=== PATIENT | female | born 1970 | race Caucasian/White ===

== ENCOUNTER 2019-04-19 21:47 | Emergency (ER) | payer MEDICAID ==
--- NOTE | 2019-04-19 22:12 | ER Document Report ---
ED Medical Screen (RME) - General Chief Complaint: Leg Pain Stated Complaint: ARTERY LEFT LEG PAIN Time Seen by Provider: 04/19/19 22:06 Primary Care Provider: LEEANN BARAHONA MD [Primary Care Provider] - Follow up as needed Mode of Arrival: Wheelchair Information source: Patient Notes: This 49-year-old female presents emergency department with complaints of left le g pain. Reports she has a history of PVD with 3 stent placements. Patient reports left upper thigh with bulging and tenderness that started today. Denies trauma. Reports her left leg is swelling and she has pain in her left foot. Denies fever vomiting reports some diarrhea Patient just moved back to [place] from [place]. I have greeted and performed a rapid initial assessment of this patient. A comprehensive ED assessment and evaluation of the patient, analysis of test results and completion of the medical decision making process will be conducted by additional ED providers. Dictation of this chart was performed using voice recognition software; therefore, there may be some unintended grammatical errors. TRAVEL OUTSIDE OF THE [place] IN LAST 30 DAYS: No - Related Data Allergies/Adverse Reactions: aspirin [Aspirin] Allergy (Intermediate, Verified 03/21/12 20:32) Feels hot & itchy meperidine HCl [From Demerol] Allergy (Intermediate, Verified 03/21/12 20:32) Get very hot tramadol [Tramadol] Allergy (Intermediate, Verified 03/21/12 20:32) Feel hot & itchy Past Medical History - Past Medical History Cardiac Medical History: Reports: Hx Coronary Artery Disease, Hx Heart Attack, Hx Hypertension Pulmonary Medical History: Neurological Medical History: Reports: Hx Migraine Endocrine Medical History: Reports: Hx Diabetes Mellitus Type 2 GI Medical History: Reports: Hx Gastroesophageal Reflux Disease Musculoskeltal Medical History: Reports Hx Arthritis - OSTEO, Reports Hx Musculoskeletal Trauma Psychiatric Medical History: Reports: Hx Anxiety, Hx Depression Traumatic Medical History: Reports: Hx Fractures Infectious Medical History: Past Surgical History: Reports: Hx Abdominal Surgery - LAP, Hx Section - X3, Hx Cholecystectomy, Hx Gynecologic Surgery - 1 , Hx Hysterectomy, Hx Oral Surgery, Hx Orthopedic Surgery - R FOOT - Immunizations Immunizations up to date: Yes Hx Diphtheria, Pertussis, Tetanus Vaccination: Yes Physical Exam - Vital signs Vitals: Temp Pulse Resp BP Pulse Ox 99.9 F 113 H 24 H 162/90 H 98 04/19/19 21:56 04/19/19 21:56 04/19/19 21:56 04/19/19 21:56 04/19/19 21:56 Course - Vital Signs Vital signs: Temp Pulse Resp BP Pulse Ox 99.9 F 113 H 24 H 162/90 H 98 04/19/19 21:56 04/19/19 21:56 04/19/19 21:56 04/19/19 21:56 04/19/19 21:56 Doctor's Discharge - Discharge Referrals: LEEANN BARAHONA MD [Primary Care Provider] - Follow up as needed
--- NOTE | 2019-04-20 01:20 | ER Document Report ---
ED Extremity Problem, Lower - General Chief Complaint: Leg Pain Stated Complaint: ARTERY LEFT LEG PAIN Time Seen by Provider: 04/20/19 01:20 Primary Care Provider: LEEANN BARAHONA MD [Primary Care Provider] - Follow up as needed Mode of Arrival: Wheelchair Information source: Patient Notes: HISTORY OF PRESENT ILLNESS: Patient is a 49-year-old female with a past medical history of peripheral vascular disease status post vascular graft to the bilateral lower extremities who presents with acute onset left-sided leg pain that began earlier today prior to arrival. Patient reports that she had gradual aching and throbbing to the left leg, denies swelling above baseline, denies known injuries. She reports she always has slight swelling and slight numbness ever since her surgery but this is unchanged. Mechanism of injury: None Location: Left leg Onset: Gradual Provocation: Movement, ambulation Quality: Aching, throbbing Radiation: None Severity: Moderate Timing: Constant Numbness/Tingling: None REVIEW OF SYSTEMS: CONSTITUTIONAL : Denies fever or chills, no sweats. Denies recent illness. EENT: Denies eye, ear, throat, or mouth pain or symptoms. Denies nasal or sinus congestion. CARDIOVASCULAR: Denies chest pain. RESPIRATORY: Denies cough, cold, or chest congestion. Denies shortness of breath, difficulty breathing, or wheezing. GASTROINTESTINAL: Denies abdominal pain. Denies nausea, vomiting, or diarrhea. Denies constipation. GENITOURINARY: Denies difficulty urinating, painful urination, burning, frequency, or blood in urine. FEMALE GENITOURINARY: Denies vaginal bleeding, abnormal or irregular periods. Last menstrual period MUSCULOSKELETAL: Positive for left leg pain. SKIN: Denies rash or skin lesions. HEMATOLOGIC : Denies easy bruising or bleeding. LYMPHATIC: Denies swollen, enlarged glands. NEUROLOGICAL: Denies weakness or paralysis or loss of use of either side. Denies problems with gait or speech. Denies sensory or motor loss. PSYCHIATRIC: Denies anxiety or stress or depression. All other systems reviewed and negative. PHYSICAL EXAMINATION: GENERAL: Well-appearing, well-nourished and in no acute distress. HEAD: Atraumatic, normocephalic. No scalp deformity, depression, or crepitance. EYES: Pupils are 3 mm and equal/round/reactive to light, extraocular movements intact, sclera anicteric, conjunctiva are normal. ENT: Nares patent bilaterally, oropharynx clear without exudates or palatal petechia. Moist mucous membranes. No tonsil hypertrophy. NECK: Normal range of motion, supple without lymphadenopathy. LUNGS: Breath sounds present, equal, and clear to auscultation bilaterally. No wheezes, rales, or rhonchi. HEART: Regular rate and rhythm without murmurs, rubs, or gallops. 2+ peripheral pulses. Normal capillary refill. ABDOMEN: Soft, nontender, nondistended. Normoactive bowel sounds. No guarding, no rebound. No masses appreciated. BACK: Normal contour, no midline tenderness. Rectal exam deferred. GENITAL/PELVC: Deferred. EXTREMITIES: Normal range of motion, no obvious deformity. No pitting or edema. Palpable left dorsalis pedis and posterior tibial pulses bilaterally. No cyanosis and normal capillary refill <2 seconds. NEUROLOGICAL: No focal neurological deficits. Moves all extremities spontaneously and on command. PSYCH: Normal mood, normal affect. No suicidal thoughts/ideations. No homicidal thoughts/ideations. No hallucinations. SKIN: Warm, dry, normal turgor, no rashes or lesions noted. ASSESSMENT AND PLAN: This patient is a 49-year-old female who presents with increased pain to the left leg status post vascular graft bilaterally with no known injury. Exam is grossly unremarkable other than baseline swelling to the left leg. Concern for graft failure versus graft blockage. 1. Will obtain CTA of the left lower extremity and reassess. 2. Will give oral Tylenol for pain control. TRAVEL OUTSIDE OF THE [place] IN LAST 30 DAYS: No - HPI Patient complains to provider of: Pain Location: Leg Occurred: This morning Where: Home Onset/Duration: Gradual Quality of pain: Achy, Cramping, Throbbing Severity: Moderate Pain Level: 3 Recent injury: No Associated symptoms: Painful ambulation Exacerbated by: Movement, Walking Relieved by: Elevation - Related Data Allergies/Adverse Reactions: aspirin [Aspirin] Allergy (Intermediate, Verified 03/21/12 20:32) Feels hot & itchy meperidine HCl [From Demerol] Allergy (Intermediate, Verified 03/21/12 20:32) Get very hot tramadol [Tramadol] Allergy (Intermediate, Verified 03/21/12 20:32) Feel hot & itchy Home Medications: phenegran, eliquis, trazadone, oxycodone, insulin shots Past Medical History - General Information source: Patient - Social History Smoking Status: Current Every Day Smoker Chew tobacco use (# tins/day): No Frequency of alcohol use: None Drug Abuse: None Lives with: Family Family History: Reviewed & Not Pertinent Patient has suicidal ideation: No Patient has homicidal ideation: No - Past Medical History Cardiac Medical History: Reports: Hx Coronary Artery Disease, Hx Heart Attack, Hx Hypertension Pulmonary Medical History: Reports: None EENT Medical History: Reports: None Neurological Medical History: Reports: Hx Migraine Endocrine Medical History: Reports: Hx Diabetes Mellitus Type 2 Renal/ Medical History: Reports: None Malignancy Medical History: Reports: None GI Medical History: Reports: Hx Gastroesophageal Reflux Disease Musculoskeletal Medical History: Reports Hx Arthritis - OSTEO, Reports Hx Musculoskeletal Trauma Skin Medical History: Reports None Psychiatric Medical History: Reports: Hx Anxiety, Hx Depression Traumatic Medical History: Reports: Hx Fractures Infectious Medical History: Reports: None Past Surgical History: Reports: Hx Abdominal Surgery - LAP, Hx Section - X3, Hx Cholecystectomy, Hx Gynecologic Surgery - 1 , Hx Hysterectomy, Hx Oral Surgery, Hx Orthopedic Surgery - R FOOT - Immunizations Immunizations up to date: Yes Hx Diphtheria, Pertussis, Tetanus Vaccination: Yes Review of Systems - Review of Systems Constitutional: No symptoms reported EENT: No symptoms reported Cardiovascular: No symptoms reported Respiratory: No symptoms reported Gastrointestinal: No symptoms reported Genitourinary: No symptoms reported Female Genitourinary: No symptoms reported Musculoskeletal: See HPI, Muscle pain, Leg swelling Skin: No symptoms reported Hematologic/Lymphatic: No symptoms reported Neurological/Psychological: No symptoms reported -: Yes All other systems reviewed and negative Physical Exam - Vital signs Vitals: Temp Pulse Resp BP Pulse Ox 99.9 F 113 H 24 H 162/90 H 98 04/19/19 21:56 04/19/19 21:56 04/19/19 21:56 04/19/19 21:56 04/19/19 21:56 Interpretation: Normal Course - Re-evaluation Re-evalutation: 04/20/19 06:03 Labs are grossly unremarkable. CTA shows no evidence of malfunction or blockage of her vascular grafts. There is a likely seroma in the left inguinal crease. Will discharge the patient home with strict return precautions and follow-up with vascular surgery. All results were explained to and discussed with the patient, and all questions addressed and answered. The patient voices both understanding and agreeing with the plan. - Vital Signs Vital signs: Temp Pulse Resp BP Pulse Ox 99.9 F 113 H 24 H 162/90 H 98 04/19/19 21:56 04/19/19 21:56 04/19/19 21:56 04/19/19 21:56 04/19/19 21:56 - Laboratory Result Diagrams: 04/20/19 01:34 04/20/19 01:34 Laboratory results interpreted by me: 04/20/19 04/20/19 01:34 01:34 WBC 13.0 H RDW 14.4 H Absolute Neuts (auto) 9.0 H Chloride 96 L Glucose 368 H Alkaline Phosphatase 160 H Total Protein 9.5 H - Diagnostic Test Radiology reviewed: Image reviewed, Reports reviewed Discharge - Discharge Clinical Impression: Leg pain Qualifiers: Laterality: left Qualified Code(s): M79.605 - Pain in left leg Condition: Good Disposition: HOME, SELF-CARE Instructions: Muscle Strain ([facility]) Additional Instructions: You have been evaluated in the Emergency Department for left leg pain and swelling. While here, you had a CAT scan that showed no acute injuries or problems and it is now safe to be discharged home. Please follow-up with your primary physician as instructed in one week to be rechecked. Return to the Emergency Department if you experience worsening pain, worsening swelling, complete numbness of the leg, if your leg becomes cool to the touch or is pale, or any other concerning symptoms. Referrals: LEEANN BARAHONA MD [Primary Care Provider] - Follow up as needed Print Language: Maltese
[2019-04-20 01:49] LABS: ABSOLUTE BASOPHILS # (AUTO) 0.1 10^3/uL (0.0-0.2); ABSOLUTE EOSINOPHILS # (AUTO) 0.1 10^3/uL (0.0-0.6); ABSOLUTE LYMPHOCYTES (AUTO) 3.1 10^3/uL (0.5-4.7); ABSOLUTE MONOCYTES (AUTO) 0.8 10^3/uL (0.1-1.4); BASOPHILS % (AUTO) 0.7 % (0-2); EOSINOPHILS % (AUTO) 0.6 % (0-6); HEMATOCRIT 40.8 % (36.0-47.0); HEMOGLOBIN 13.7 g/dL (12.0-15.5); LYMPHOCYTES % (AUTO) 23.7 % (13-45); MEAN CORPUSCULAR HEMOGLOBIN 28.9 pg (27.0-33.4); MEAN CORPUSCULAR HGB CONC 33.7 g/dL (32.0-36.0); MEAN CORPUSCULAR VOLUME 86 fl (80-97); MONOCYTES % (AUTO) 5.9 % (3-13); PLATELET COUNT 358 10^3/uL (150-450); RED BLOOD COUNT 4.75 10^6/uL (3.72-5.28); RED CELL DISTRIBUTION WIDTH 14.4 % (11.5-14.0); SEGMENTED NEUTROPHILS % (AUTO) 69.1 % (42-78); TOTAL CELLS COUNTED % (AUTO) 100 %
[2019-04-20 02:11] LABS: ALKALINE PHOSPHATASE 160 U/L (38-126); ANION GAP 17 (5-19); ASPARTATE AMINO TRANSFERASE 15 U/L (14-36); BILIRUBIN,DIRECT 0.2 mg/dL (0.0-0.4); BILIRUBIN,TOTAL 0.6 mg/dL (0.2-1.3); BLOOD UREA NITROGEN 19 mg/dL (7-20); CALCIUM 10.1 mg/dL (8.4-10.2); CARBON DIOXIDE 25 mmol/L (22-30); CHLORIDE 96 mmol/L (98-107); GLUCOSE 368 mg/dL (75-110); POTASSIUM 4.3 mmol/L (3.6-5.0); TOTAL PROTEIN 9.5 g/dL (6.3-8.2)
[2019-04-20] MEDS ORDERED: ACETAMINOPHEN 325 MG TABLET PO ONE (03:36)
--- NOTE | 2019-04-20 05:17 | RADIOLOGY REPORT (SQ) ---
EXAM DESCRIPTION: CT LOWER EXTREMITY ANGIOGRAPHY WITH IV CONTRAST COMPLETED DATE/TME: 04/20/2019 02:01 CLINICAL HISTORY: 49 years, Female, LEFT Leg pain after vascular graft COMPARISON: None. TECHNIQUE: [id number] Images stored on PACS. All CT scanners at this facility use dose modulation, iterative reconstruction, and/or weight based dosing when appropriate to reduce radiation dose to as low as reasonably achievable (ALARA). Axial images with coronal and sagittal MIPS [facility]: Dose Right [facility]: CareDose [facility]: Dose Right [facility]: Teradose 4D [facility]: [employer] LIMITATIONS: None. FINDINGS: Limited evaluation of intrapelvic structures is unremarkable. Postsurgical changes in the left inguinal region, with endovascular stent graft associated with the left common femoral artery, extending distally. There is patency of the graft which is normally opacified,. The graft extends to the level of the proximal leg where there is a patent single vessel runoff to the left ankle. Patent distal anterior tibial artery of the foot and patent posterior tibial artery. Surgical clips in the left inguinal region with surrounding inflammatory change. A small fluid-filled structure anterior to the proximal graft, measuring approximately 2.4 x 1.7 x 4.2 cm. This does not appear to opacify with contrast. IMPRESSION: Patent endovascular graft of the left lower extremity, as above with patent single vessel runoff to the left ankle. Minor inflammatory changes in the left inguinal region with small nonenhancing fluid collection along the anterior margin of the graft. This could reflect seroma. Infectious process or abscess is not excluded entirely. Pseudoaneurysm felt less likely. TECHNICAL DOCUMENTATION: Quality ID # [id number]: Final reports with documentation of one or more dose reduction techniques (e.g., Automated exposure control, adjustment of the mA and/or kV according to patient size, use of iterative reconstruction technique) copyright 2010 [email or web address]- All Rights Reserved
[2019-04-20 06:51] VITALS: BP 145/80
== END 2019-04-20 06:18 | disposition home or self-care (01) ==
LOC: ER 21:47
DX: M79.605 Pain in left leg (principal); M79.89 Other specified soft tissue disorders; M79.10 Myalgia, unspecified site; E11.51 Type 2 diabetes mellitus with diabetic peripheral angiopathy without gangrene; I25.10 Atherosclerotic heart disease of native coronary artery without angina pectoris; I10 Essential (primary) hypertension; I25.2 Old myocardial infarction; F17.200 Nicotine dependence, unspecified, uncomplicated; Z79.02 Long term (current) use of antithrombotics/antiplatelets; Z79.891 Long term (current) use of opiate analgesic; Z79.4 Long term (current) use of insulin; Z98.890 Other specified postprocedural states; Z88.8 Allergy status to other drugs, medicaments and biological substances; Z88.5 Allergy status to narcotic agent; Z79.899 Other long term (current) drug therapy
CPT/HCPCS: 36415; 80053; 85025; 99284

== ENCOUNTER 2019-04-26 17:06 | Inpatient (IN) | payer MEDICAID ==
--- NOTE | 2019-04-26 17:23 | ER Document Report ---
ED General - General Stated Complaint: WEAKNESS Time Seen by Provider: 04/26/19 17:23 Mode of Arrival: Stretcher Information source: Emergency Med Personnel - EMS, [facility] emr, eventually boyfriend arrived in ED. Cannot obtain history due to: Altered mental status, Other - nonverbal acute delirium TRAVEL OUTSIDE OF THE [place] IN LAST 30 DAYS: No - couldn't obtain 2/2 pt mental status - HPI Recently seen / treated by doctor: Yes - see hpi Notes: 49WF w/ later per emr h/o advanced BLE PAD s/p L femoral artery graft, DM insulin use, presentation to [facility] ED 04/20 for L groin, thigh pain but d/c to f/u w /vasc sgy after n/v exam and cta extremity c/w graft patency w/ prox to distal runoff and intact limb perfusion, but who is bibems today after they received call for "[pt] not acting like herself or getting up out of bed for few days" per son and boyfriend at home. EMS report pt eyes open, selectively following voice commands but nonverbal, seemed to be PIERRE generally spontaneously . they report at the residence, her "son/bf didn't seem to know much of her PMH, and pt was lying supine (unclear on floor or bed) w/ open draining purulent would L suprapubic area. EMS report initial VS wnl, POCT glu "not measurable, and no hypoxia, but +tachypnea and some inc labor on spont deep respirations right over 20 bpm. HR/bp and initial alertness and responsiveness stable en route. BF then arrived to ED says she probably hasn't been taking her insulin last few days, he isn't sure but doesn't think she has h/o med noncompliance or h/o DKA admissions. Says only that she was c/o RLE pain for last few days, but then today hasn't talked. he doesn't think she's been vomiting doesn't know if she's been having fevers. he says at baseline she is verbal, ambulatory and can perform all her own ADL. he is unsure of specific h/o vascular surgery in E. he doesn't think she's had any recent trauma/falls or Abx courses prescribed. and doesn't think she f/u w/ vasc sgy after [facility] ED visit 04/20. - Related Data Allergies/Adverse Reactions: aspirin [Aspirin] Allergy (Intermediate, Verified 03/21/12 20:32) Feels hot & itchy meperidine HCl [From Demerol] Allergy (Intermediate, Verified 03/21/12 20:32) Get very hot tramadol [Tramadol] Allergy (Intermediate, Verified 03/21/12 20:32) Feel hot & itchy Home Medications: unable to confirm given pt mental status. reviewed after initial management of DKA and initiation of trasnfer for exam c/w acute ischemia R distal extremity Past Medical History - General Information source: Friend, Emergency Med Personnel, [facility] Records Cannot obtain history due to: Altered mental status - Social History Smoking Status: Unknown if Ever Smoked - couldn't obtain 2/2 pt mental status Frequency of alcohol use: None - bf denies Drug Abuse: None - bf denies illicit drug use Lives with: Family - per EMS. i didn't confirm living situations/cohabitants given mental status Family History: Reviewed & Not Pertinent - Medical History Medical History: Other - see hpi - Past Medical History Cardiac Medical History: Reports: Hx Coronary Artery Disease, Hx Heart Attack - all per emr, Hx Hypertension Pulmonary Medical History: Neurological Medical History: Reports: Hx Migraine - per emr Endocrine Medical History: Reports: Hx Diabetes Mellitus Type 2 - per emr confirmed BF on insulin usually compliant Other: couldn't obtain 2/2 pt mental status Malignancy Medical History: Reports: Other - couldn't obtain 2/2 pt mental status GI Medical History: Reports: Hx Gastroesophageal Reflux Disease - per emr Musculoskeletal Medical History: Reports Hx Arthritis - per emr "OSTEO" not differientated per me, Reports Hx Musculoskeletal Trauma - per emr Psychiatric Medical History: Reports: Hx Anxiety, Hx Depression Other: per emr Traumatic Medical History: Reports: Hx Fractures - not clarified/reviewed by me, per emr Infectious Medical History: Other: couldn't obtain 2/2 pt mental status Past Surgical History: Reports: Hx Abdominal Surgery - LAP, Hx Section - X3, Hx Cholecystectomy, Hx Gynecologic Surgery - 1 , Hx Hysterectomy, Hx Oral Surgery, Hx Orthopedic Surgery - R FOOT, Other - couldn't confirm above (+)s per emr 2/2 pt mental status - Immunizations Immunizations up to date: Yes Hx Diphtheria, Pertussis, Tetanus Vaccination: Yes - per emr i didn't confirm History of Pneumococcal Vaccine: Unknown - couldn't obtain 2/2 pt mental status History of Influenza Vaccine for 03/2019 - 08/2019 Season: Unknown - couldn't obtain 2/2 pt mental status Review of Systems - Review of Systems -: Yes ROS unobtainable due to patient's medical condition - see HPI, above ROS obtained from poor source, pt BF EENT: See HPI - couldn't obtain 2/2 pt mental status. denies: Difficulty swallowing - BF reports usually no difficulty in eating, hasn't been eating drinking well ~>24 hr possibly, he doesnt think she's had new difficulty w/ vision or URI sx lately Cardiovascular: See HPI - couldn't obtain 2/2 pt mental status, Other - bf doesn't think she's complained of syncope near syncope, PND/orthopnea, chest pain in last few days. Respiratory: See HPI - couldn't obtain 2/2 pt mental status, though BF doesn't think recently sob Gastrointestinal: See HPI - couldn't obtain 2/2 pt mental status, Last bowel movement - unknown Female Genitourinary: Other - bf unsure about duration she's had open L inguinal, 1 inch draining purulent wound or problems w/ vb. Musculoskeletal: See HPI - bf unsure how long had L plantar toe DM ulcer or if it's been worse/better, was unaware in ED of pt's mottling, duskiness painful RLE with any movement or palpation Skin: See HPI Hematologic/Lymphatic: Other - couldn't obtain 2/2 pt mental status Neurological/Psychological: See HPI - couldn't obtain 2/2 pt mental status Physical Exam - Vital signs Vitals: Temp BP 97.5 F 136/85 H 04/26/19 17:14 04/26/19 17:14 Interpretation: Tachycardic, Tachypneic - respirations c/w kussmaul breathing. No: Hypotensive, Hypertensive, Hypoxic - General Notes: frail appearing, much older than stated age. - HEENT Head: No: Open wounds Eyes: No: Pale conjunctiva, Scleral icterus Conjunctiva: No: Injected, Purulent discharge Extraocular movements intact: Yes - grossy Pupils: PERRL - 5mm Nerve palsy: No - no gross CN deficits Ears: Other - no evidence of trauma/deformity or drainage Nasal: No: Ecchymosis, Swelling Mouth/Lips: No: Laceration, Lesions Mucous membranes: Dry, Other - w/o lesions Pharynx: Other - able to visualize post oropharynx no dentition. No: Uvular edema Neck: No: Neck mass, Subcutaneous emphysema, Thyromegally - Respiratory Respiratory status: Other - RR ~low 20s c/w kussmaul deep breathing no accessory mm use, cyanosis or hypoxia on RA Chest palpation: No: Subcutaneous emphysema, Ecchymosis, Wounds - Cardiovascular Heart sounds: S1 appreciated, S2 appreciated Murmur: No - no grossly ausculated Pulses: Normal: Brachial, Radial, Decreased: Popliteal - ble 1, Absent: Posterior tibial - RLE non dopplerable, LLE +palpable 1, Dorsalis pedis - RLE non dopplerable, LLE +palpable 1 Notes: R distal extremity mottled dusky, no response specifically w/ isolation of ble hip rom or joint rom, ++ grimage to general palpation R distal extremity. +L great toe dm ulcer overlying eschar nondraining. no other joint erythema warmmth swelling at bn/l knee, ankle wrist or elbow. - Abdominal Inspection: No: Caput medussa, Wounds, Obese Distension: Distended bladder - upon li insertion ~L dark clear yellow urine output. No: No distension, Tympanitic Tenderness: Nontender. No: Guarding, Rebound Organomegaly: No: No organomegaly, Mass - Rectal Notes: deferred - Genitourinary Notes: +1 inch L infra inguinal open wound spontaneously draining pus no gross vaginal d/c. no apparent fecal contamination or draining from wound. - Back Notes: per RN no evidence skin breakdown - Extremities Notes: see above sections no joint deformities or evidence joint swelling. - Neurological Additional motor exam normals: Other - no evidence clonus passive ankle dorsiflexions, +b/l downgoing babinski b/l, spontaneoulsy wiggles b/l toes to command. inattentive intermittent eye contact, grossly no CN deficits, PERRL 5mm, no evidence hemispheric neglect grossly, does lightly squeeze R and L hands equally to command. nonverbal. cannot resist gravity b/l hip flexors. responds w/ grimace to palpation attempt palpate dp/pt R pulses. no grimacing LLE distal pulse exam. Course - Re-evaluation Re-evalutation: 05/03/19 23:45 instructed team paramount to instill fluid resuscitation first. consulted [facility] iCU for admission DKA. initial lactate 3+ bicarb "5" glu 800s. i did have some difficulty placing orders given new w/ emr, so delayed. once learned only had 22g RUE miscommunication in plan to prioritize LR admin via only PIV while having other RNs capable of obtaining u/s guided 2nd PIV. though didn't communicate well to RN, so 1st bag LR was paused in order to to start vanc s/p only 500 cc initially. ICU doc noted on his exam ischemic RLU, we initiated emergent vasc consult who understands c/f acute ischemic limb, sepsis possibly site abscess near L femoral graft site. K 5.8. Ph wnl. cont delay in starting 2nd liter LR or insulin gtt. placed RIJ line w/ direct u/s guidance confi rmation of guidewire in RIJ prior to dilation. CXR right before transport by flight crew showed tip of CVC in SVC though proximal portion. i ok'd for use for meds/fluids though relayed to [facility] team accepting team should reassess for ability to advance a few cm if can maintain that sterility. flight crew promised to start 2nd liter of crystalloid i preferred. we couldn't get insulin drip mixxed in time given my delay in order to pharmacy so instructed rn to give 0.1 u/kg bolus immediately prior to transfer. VS remained stable. and patient was starting to answer some yes no questions and more frequently make eye contact. - Vital Signs Vital signs: Temp Pulse Resp BP Pulse Ox 97.5 F 32 H 167/93 H 95 04/26/19 17:14 04/26/19 21:44 04/26/19 21:44 04/26/19 21:44 - Laboratory Result Diagrams: 04/26/19 17:20 04/26/19 17:20 Laboratory results interpreted by me: 04/26/19 04/26/19 04/26/19 17:17 17:20 17:20 WBC 24.7 H Hgb 11.1 L Hct 35.6 L MCHC 31.1 L RDW 16.4 H Plt Count 523 H Seg Neuts % (Manual) 84 H Lymphocytes % (Manual) 5 L Abs Neuts (Manual) 22.0 H Abs Monocytes (Manual) 1.5 H PT VBG pH VBG pCO2 VBG HCO3 Sodium 147.2 H Potassium 5.8 H Carbon Dioxide < 5 L* BUN 65 H Creatinine 1.70 H Est GFR ( Amer) 38 L Est GFR (MDRD) Non-Af 32 L Glucose 823 H* POC Glucose > 550 H* Calcium 10.3 H Phosphorus 7.8 H Direct Bilirubin 0.7 H Alkaline Phosphatase 174 H Total Protein 8.4 H Urine Protein Urine Glucose (UA) Urine Ketones Urine Blood 04/26/19 04/26/19 04/26/19 17:20 17:20 17:50 WBC Hgb Hct MCHC RDW Plt Count Seg Neuts % (Manual) Lymphocytes % (Manual) Abs Neuts (Manual) Abs Monocytes (Manual) PT 18.6 H VBG pH 7.23 L VBG pCO2 19.4 L* VBG HCO3 8.0 L Sodium Potassium Carbon Dioxide BUN Creatinine Est GFR ( Amer) Est GFR (MDRD) Non-Af Glucose POC Glucose Calcium Phosphorus Direct Bilirubin Alkaline Phosphatase Total Protein Urine Protein 100 H Urine Glucose (UA) >=500 H Urine Ketones 80 H Urine Blood MODERATE H - Diagnostic Test Radiology reviewed: Image reviewed - upright port cxr on arrival and before transer, s/p placemetn RIJ CVC reviewed by me. first showed NAP. clear expanded lung doe w/o pulm edema or other consolidation. 2nd showed tip cvc prox SVC Procedures - Central Line Right Internal jugular Consent obtained: Yes - written obtained by Dr. Georges in chart Central line pre-insertion: Sterile PPE donned, Chloraprep applied, Sterile drapes applied Central line lumen type: Triple Anesthetic type: 1% Lidocaine mL's of anesthesia: 2 - by dr. georges Ultrasound guided: Yes - initial attempt w/o u/s by dr georges, i then donned sterile gear/u/s CM at insertion site: 16 Line secured with sutures: Yes Central line post-insertion: Blood return from lumens, Biopatch applied, Sutured, Sterile dressing applied, Position confirmed w/ CXR - tip within proximal SVC Complications: No Critical Care Note - Critical Care Note Total time excluding time spent on procedures (mins): 90 Discharge - Discharge Clinical Impression: Ischemia of extremity, Sepsis DKA (diabetic ketoacidoses) Qualifiers: Diabetes mellitus type: type 1 Diabetes mellitus complication detail: without coma Qualified Code(s): E10.10 - Type 1 diabetes mellitus with ketoacidosis without coma Condition: Critical Disposition: Tertiary-Other Unit Admitted: ICU
[2019-04-26] MEDS ORDERED: RINGERS SOLUTION,LACTATED 1,000 ML IV ONE ×2 (17:30→19:30)
[2019-04-26 17:45] LABS: MEAN CORPUSCULAR HGB CONC 31.1 g/dL (32.0-36.0)
[2019-04-26 17:49] LABS: INTERNATIONAL RATION (INR) 1.54; PROTHROMBIN TIME 18.6 SEC (11.4-15.4)
[2019-04-26 17:55] LABS: HEMATOCRIT 35.6 % (36.0-47.0); HEMOGLOBIN 11.1 g/dL (12.0-15.5); MEAN CORPUSCULAR HEMOGLOBIN 28.5 pg (27.0-33.4); PLATELET COUNT 523 10^3/uL (150-450); RED BLOOD COUNT 3.88 10^6/uL (3.72-5.28); RED CELL DISTRIBUTION WIDTH 16.4 % (11.5-14.0); WHITE BLOOD COUNT 24.7 10^3/uL (4.0-10.5)
[2019-04-26 17:57] LABS: VENOUS BLOOD BASE EXCESS -17.5 mmol/L; VENOUS BLOOD PH 7.23 (7.30-7.42)
[2019-04-26 18:00] LABS: VENOUS BLOOD PCO2 19.4 mmHg (35-63)
[2019-04-26 18:12] LABS: ALKALINE PHOSPHATASE 174 U/L (38-126); ASPARTATE AMINO TRANSFERASE 24 U/L (14-36); BILIRUBIN,DIRECT 0.7 mg/dL (0.0-0.4); BILIRUBIN,TOTAL 0.9 mg/dL (0.2-1.3); BLOOD UREA NITROGEN 65 mg/dL (7-20); CALCIUM 10.3 mg/dL (8.4-10.2); CHLORIDE 100 mmol/L (98-107); PHOSPHORUS 7.8 mg/dL (2.5-4.5); POTASSIUM 5.8 mmol/L (3.6-5.0); TOTAL PROTEIN 8.4 g/dL (6.3-8.2)
[2019-04-26 18:24] LABS: MEAN CORPUSCULAR VOLUME 92 fl (80-97)
[2019-04-26 18:25] LABS: ABSOLUTE LYMPHOCYTES# (MANUAL) 1.2 10^3/uL (0.5-4.7); ABSOLUTE MONOCYTES # (MANUAL) 1.5 10^3/uL (0.1-1.4); ANISOCYTOSIS 1+; BAND NEUTROPHILS % (MANUAL) 5 % (3-5); BASOPHILS % (MANUAL) 0 % (0-2); EOSINOPHILS % (MANUAL) 0 % (0-6); LYMPHOCYTES % (MANUAL) 5 % (13-45); MONOCYTES % (MANUAL) 6 % (3-13); PLATELET COMMENT INCREASED; SEGMENTED NEUTROPHILS % (MAN) 84 % (42-78); TOTAL CELLS COUNTED 100
[2019-04-26 18:28] LABS: GLUCOSE 823 mg/dL (75-110)
[2019-04-26 18:34] LABS: CARBON DIOXIDE < 5 mmol/L (22-30)
[2019-04-26] MEDS ORDERED: VANCOMYCIN HCL INJ 1000 MG VIAL IV ONE (18:45)
--- NOTE | 2019-04-26 18:47 | RADIOLOGY REPORT (SQ) ---
EXAM DESCRIPTION: CHEST SINGLE VIEW COMPLETED DATE/TIME: 04/26/2019 6:03 pm REASON FOR STUDY: tachypnea COMPARISON: 05/28/2012 EXAM PARAMETERS: NUMBER OF VIEWS: One view. TECHNIQUE: Single frontal radiographic view of the chest acquired. RADIATION DOSE: NA LIMITATIONS: None. FINDINGS: LUNGS AND PLEURA: No opacities, masses or pneumothorax. No pleural effusion. MEDIASTINUM AND HILAR STRUCTURES: No masses. Contour normal. HEART AND VASCULAR STRUCTURES: Heart normal in size. Normal vasculature. BONES: No acute findings. HARDWARE: None in the chest. OTHER: No other significant finding. IMPRESSION: NO ACUTE RADIOGRAPHIC FINDING IN THE CHEST. TECHNICAL DOCUMENTATION: JOB ID: [id number] [employer]- All Rights Reserved Reading location - IP/workstation name: [email or web address]
[2019-04-26 18:51] LABS: APPEARANCE,URINE CLEAR; BILIRUBIN,URINE NEGATIVE (NEGATIVE); COLOR,URINE YELLOW; GLUCOSE, URINE >=500 mg/dL (NEGATIVE); KETONES,URINE 80 mg/dL (NEGATIVE); LEUKOCYTE ESTERASE,URINE NEGATIVE (NEGATIVE); NITRITE,URINE NEGATIVE (NEGATIVE); PROTEIN,URINE 100 mg/dL (NEGATIVE); URINE SPECIFIC GRAVITY 1.023; UROBILINOGEN,URINE NEGATIVE mg/dL (<2.0)
[2019-04-26] MEDS ORDERED: GLUCAGON,HUMAN RECOMB 1 MG INJ IM PRN ×4 (19:09→21:47)
[2019-04-26] MEDS ORDERED: DEXTROSE 40% GEL 15 GM TUBE PO PRN ×8 (19:09→21:47)
[2019-04-26] MEDS ORDERED: DEXTROSE 50%-WATER 25 GM/50 ML DISP.SYRIN IV PRN ×8 (19:09→21:47)
[2019-04-26] MEDS ORDERED: NORMAL SALINE 1000 ML 1,000 ML IV PRN (19:38)
[2019-04-26] MEDS ORDERED: OXYCODONE-ACETAMINOPHEN 5-325 MG TABLET PO PRN (19:38)
[2019-04-26] MEDS ORDERED: CEFEPIME 1 GM/D5W RTU 1 GM/50 ML RTUPB IV ONE (19:45)
[2019-04-26] MEDS ORDERED: NORMAL SALINE 100 ML with INSULIN REGULAR, HUMAN 100 UNIT IV PRN ×6 (19:46→21:47)
[2019-04-26] MEDS ORDERED: HUMAN IV SCH ×2 (20:00)
[2019-04-26] MEDS ORDERED: NORMAL SALINE IV SCH ×2 (20:00)
[2019-04-26] MEDS ORDERED: INSULIN REGULAR IV SCH ×2 (20:00)
[2019-04-26] MEDS ORDERED: HEPARIN SOD (PORCINE) 5,000 UNIT/ML 1 ML VIAL SUBCUT SCH (20:30)
--- NOTE | 2019-04-26 21:15 | PDOC PROGRESS REPORT ---
Subjective Progress Note for:: 04/26/19 Subjective:: Fatigue, confusion. Reason For Visit: DKA AND POSSIBLE INFECTION OF L FEMORAL ART GRAFT Physical Exam Vital Signs: Temp Pulse Resp BP Pulse Ox 97.5 F 28 H 139/86 H 97 04/26/19 17:14 04/26/19 20:00 04/26/19 19:01 04/26/19 20:00 Intake & Output 04/25/19 04/26/19 04/27/19 06:59 06:59 06:59 Intake Total 1000 Output Total 1000 Balance 0 Weight 57 kg General appearance: PRESENT: disheveled, mild distress Head exam: PRESENT: atraumatic Eye exam: PRESENT: conjunctiva pink, EOMI, PERRLA. ABSENT: scleral icterus Ear exam: PRESENT: normal external ear exam Mouth exam: PRESENT: dry mucosa Additional comments: Very dry Respiratory exam: PRESENT: clear to auscultation junior, decreased breath sounds, tachypnea Cardiovascular exam: PRESENT: tachycardia Pulses: PRESENT: other Vascular exam: PRESENT: pallor GI/Abdominal exam: PRESENT: normal bowel sounds, soft. ABSENT: distended, guarding, mass, organolmegaly, rebound, tenderness Rectal exam: PRESENT: deferred Gentrourinary exam: PRESENT: indwelling catheter Additional comments: Draining surgical incision in L groin. Pus expressed and cultured. Well healed lower leg incision. R leg is mottled from knee to foot. Foot is white cold and painful. No dopplerable pulses Musculoskeletal exam: PRESENT: other - As above. Neurological exam: PRESENT: altered Additional comments: Delirious Psychiatric exam: PRESENT: anxious, flat affect Skin exam: PRESENT: pallor Results Laboratory Results: 04/26/19 17:20 04/26/19 17:20 04/26/19 04/26/19 04/26/19 17:20 17:20 17:20 WBC 24.7 H RBC 3.88 Hgb 11.1 L Hct 35.6 L MCV 92 D MCH 28.5 MCHC 31.1 L RDW 16.4 H Plt Count 523 H Seg Neutrophils % Not Reportable VBG pH 7.23 L VBG pCO2 19.4 L* VBG HCO3 8.0 L VBG Base Excess -17.5 Sodium 147.2 H Potassium 5.8 H Chloride 100 Carbon Dioxide < 5 L* Anion Gap Not Reportable BUN 65 H Creatinine 1.70 H Est GFR ( Amer) 38 L Glucose 823 H* Lactic Acid Calcium 10.3 H Phosphorus 7.8 H Total Bilirubin 0.9 AST 24 Alkaline Phosphatase 174 H Total Protein 8.4 H Albumin 4.0 Urine Color Urine Appearance Urine pH Ur Specific Trimble Urine Protein Urine Glucose (UA) Urine Ketones Urine Blood Urine Nitrite Ur Leukocyte Esterase Urine WBC (Auto) Urine RBC (Auto) 04/26/19 04/26/19 17:20 17:50 WBC RBC Hgb Hct MCV MCH MCHC RDW Plt Count Seg Neutrophils % VBG pH VBG pCO2 VBG HCO3 VBG Base Excess Sodium Potassium Chloride Carbon Dioxide Anion Gap BUN Creatinine Est GFR ( Amer) Glucose Lactic Acid 1.8 Calcium Phosphorus Total Bilirubin AST Alkaline Phosphatase Total Protein Albumin Urine Color YELLOW Urine Appearance CLEAR Urine pH 5.0 Ur Specific Trimble 1.023 Urine Protein 100 H Urine Glucose (UA) >=500 H Urine Ketones 80 H Urine Blood MODERATE H Urine Nitrite NEGATIVE Ur Leukocyte Esterase NEGATIVE Urine WBC (Auto) 1 Urine RBC (Auto) 1 Impressions: Chest X-Ray 04/26/19 17:24 IMPRESSION: NO ACUTE RADIOGRAPHIC FINDING IN THE CHEST. Assessment & Plan - Diagnosis (1) DKA (diabetic ketoacidoses) Qualifiers: Diabetes mellitus type: type 1 Diabetes mellitus complication detail: without coma Qualified Code(s): E10.10 - Type 1 diabetes mellitus with ketoacidosis without coma Is this a current diagnosis for this admission?: Yes Plan: Blood sufgar 823, bicarb 5. Insulin drip starting. Boyfriend says never in DKA, not in record (2) Incisional infection Is this a current diagnosis for this admission?: Yes Plan: Pus expressed from L groin incision. Question if the is a graft infection driving DKA. Getting Vancomycin (3) PVD (peripheral vascular disease) Is this a current diagnosis for this admission?: Yes Plan: She has known vascular disease of both legs. (4) Ischemic foot Is this a current diagnosis for this admission?: Yes Plan: This appears acute. We will heparinize and will be transferred to [facility] for control of DKA and vascular surgical evaluation.Some of this should improve with rehydration but there may also be a clot as well. (5) Acute kidney injury Is this a current diagnosis for this admission?: Yes Plan: Cr 1.7 from baseline of .8. Should improve with rehydration - Time Time Spent with patient: 60 Time Spent with patient: 35 or more minutes Total Critical Time (Minutes): 60 Level of Care: ICU Medications reviewed and adjusted accordingly: Yes Anticipated discharge: [facility] Within: within 24 hours - Inpatient Certification Based on my medical assessment, after consideration of the patient's comorbidities, presenting symptoms, or acuity I expect that the services needed warrant INPATIENT care.: Yes I certify that my determination is in accordance with my understanding of Medicare's requirements for reasonable and necessary INPATIENT services [42 CFR 412.3e].: Yes Medical Necessity: Failure to Improve With Outpatient Therapy, Significant Comorbidiites Make Outpatient Treatment Too Risky, Need Close Monitoring Due to Risk of Patient Decompensation, Need For IV Fluids, Need For Continuous T elemetry Monitoring, Need for Pain Control, Need for IV Antibiotics, Need for Surgery, Risk of Complication if Not Cared For in Hospital, Risk of Diagnosis Which Will Require Inpatient Eval/Care/Monitoring
[2019-04-26] MEDS ORDERED: LINEZOLID 600 MG/300 ML RTUPB IV SCH (22:00)
[2019-04-26] MEDS ORDERED: INSULIN REG, HUMAN 100 UNIT/ML 3 ML VIAL (PYX) ONE (22:01)
[2019-04-26] MEDS ORDERED: INSULIN LISPRO 100 UNIT/ML 3 ML VIAL IV ONE (22:04)
--- NOTE | 2019-04-26 22:07 | RADIOLOGY REPORT (SQ) ---
XR CHEST 1 VIEW EXAM DATE: 04/26/2019 12:00 AM LOAD PLANNER HISTORY: post central line placement. COMPARISON: Radiographs from earlier the same day. FINDINGS: The heart size is within normal limits. No consolidation, pleural effusion, or pneumothorax is seen. No acute bony findings. There is a new right IJ line with the tip in the proximal SVC. IMPRESSION: New right IJ line with the tip in the proximal SVC. Recommend advancement 5-6 cm.
[2019-04-26 22:17] VITALS: BP 167/93
--- NOTE | 2019-04-26 23:36 | EKG REPORT ---
SEVERITY:- ABNORMAL ECG - SINUS TACHYCARDIA PROBABLE LVH WITH SECONDARY REPOL ABNRM INFERIOR INFARCT, AGE INDETERMINATE : Confirmed by: Eunice Bell 26-Apr-2019 23:35:43
[2019-04-27] MEDS ORDERED: PANTOPRAZOLE SODIUM 40 MG TABLET.DR PO SCH (06:00)
[2019-04-27] MEDS ORDERED: CEFTRIAXONE 1 GM/D5W RTU 1 GM/50 ML RTUPB IV ONE (17:30)
== END 2019-04-26 22:49 | disposition short-term general hospital (02) | DRG 638 ==
LOC: ER 17:06 → EH 19:49
PROVIDERS: ADMIT Anesthesiology; ATTEND Anesthesiology
DX: E10.10 Type 1 diabetes mellitus with ketoacidosis without coma (principal); N17.9 Acute kidney failure, unspecified; T81.41XA Infection following a procedure, superficial incisional surgical site, initial encounter; I73.9 Peripheral vascular disease, unspecified; I99.8 Other disorder of circulatory system; E10.622 Type 1 diabetes mellitus with other skin ulcer; L97.529 Non-pressure chronic ulcer of other part of left foot with unspecified severity; R53.1 Weakness; R41.82 Altered mental status, unspecified; I25.10 Atherosclerotic heart disease of native coronary artery without angina pectoris; I10 Essential (primary) hypertension; K21.9 Gastro-esophageal reflux disease without esophagitis; F41.8 Other specified anxiety disorders; I25.2 Old myocardial infarction; Z79.4 Long term (current) use of insulin; Z88.6 Allergy status to analgesic agent; Z91.14 Patient's other noncompliance with medication regimen
CPT/HCPCS: 36415; 51702; 71045; 80053; 81001; 81025; 82803; 82962; 83605; 84100; 85025; 85610; 87040; 87070; 87077; 87150; 87186; 87205; 93005; 93010; 96361; 96365; 99285; C1751; J1815; J3370; J7050; J7120

== ENCOUNTER 2019-07-17 20:23 | Emergency (ER) | payer MEDICAID ==
[2019-07-17 20:39] VITALS: BP 134/77
== END 2019-07-18 00:18 | disposition left against medical advice (07) ==
LOC: ER 20:23
DX: Z53.21 Procedure and treatment not carried out due to patient leaving prior to being seen by health care provider (principal)

== ENCOUNTER 2019-11-13 19:47 | Emergency (ER) | payer MEDICAID ==
[2019-11-13] MEDS ORDERED: MORPHINE SULFATE 10 MG/ML INJ IV ONE ×2 (20:07→21:45)
[2019-11-13] MEDS ORDERED: NORMAL SALINE 1000 ML 1,000 ML IV ONE (20:08)
[2019-11-13 20:16] LABS: ABSOLUTE BASOPHILS # (AUTO) 0.1 10^3/uL (0.0-0.2); ABSOLUTE EOSINOPHILS # (AUTO) 0.1 10^3/uL (0.0-0.6); ABSOLUTE LYMPHOCYTES (AUTO) 4.3 10^3/uL (0.5-4.7); ABSOLUTE MONOCYTES (AUTO) 0.7 10^3/uL (0.1-1.4); ABSOLUTE NEUT (AUTO) 9.8 10^3/uL (1.7-8.2); BASOPHILS % (AUTO) 0.7 % (0-2); EOSINOPHILS % (AUTO) 0.6 % (0-6); HEMOGLOBIN 14.4 g/dL (12.0-15.5); LYMPHOCYTES % (AUTO) 28.9 % (13-45); MEAN CORPUSCULAR HEMOGLOBIN 28.8 pg (27.0-33.4); MEAN CORPUSCULAR HGB CONC 34.2 g/dL (32.0-36.0); MEAN CORPUSCULAR VOLUME 84 fl (80-97); MONOCYTES % (AUTO) 4.5 % (3-13); PLATELET COUNT 591 10^3/uL (150-450); RED BLOOD COUNT 4.99 10^6/uL (3.72-5.28); RED CELL DISTRIBUTION WIDTH 14.4 % (11.5-14.0); SEGMENTED NEUTROPHILS % (AUTO) 65.3 % (42-78); TOTAL CELLS COUNTED % (AUTO) 100 %; WHITE BLOOD COUNT 14.9 10^3/uL (4.0-10.5)
[2019-11-13 20:34] LABS: ALBUMIN 5.2 g/dL (3.5-5.0); ALKALINE PHOSPHATASE 193 U/L (38-126); ANION GAP 17 (5-19); ASPARTATE AMINO TRANSFERASE 24 U/L (14-36); BILIRUBIN,DIRECT 0.1 mg/dL (0.0-0.4); BILIRUBIN,TOTAL 0.5 mg/dL (0.2-1.3); BLOOD UREA NITROGEN 21 mg/dL (7-20); CALCIUM 10.3 mg/dL (8.4-10.2); CARBON DIOXIDE 23 mmol/L (22-30); CHLORIDE 104 mmol/L (98-107); GLUCOSE 156 mg/dL (75-110); POTASSIUM 4.1 mmol/L (3.6-5.0); TOTAL PROTEIN 9.7 g/dL (6.3-8.2)
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
--- NOTE | 2019-11-13 21:39 | EKG REPORT ---
SEVERITY:- ABNORMAL ECG - SINUS TACHYCARDIA VENTRICULAR PREMATURE COMPLEX ADAN, CONSIDER BIATRIAL ABNORMALITIES LEFT VENTRICULAR HYPERTROPHY INFERIOR INFARCT,OLD : Confirmed by: Lewis Gant MD 13-Nov-2019 21:38:55
--- NOTE | 2019-11-13 22:05 | RADIOLOGY REPORT (SQ) ---
EXAM DESCRIPTION: CT angiogram of the chest CLINICAL HISTORY: 49 years Female cp/sob COMPARISON: None TECHNIQUE: Axial images with 75 mL of IV contrast. MIP reconstruction. This exam was performed according to our departmental dose-optimization program, which includes automated exposure control, adjustment of the mA and/or kV according to patient size and/or use of iterative reconstruction technique.. FINDINGS: No evidence for pulmonary hypertension or pulmonary embolus. Mildly ectatic 33 mm ascending aorta. No dissection. Mild left cardiomegaly. No suspicious mediastinal adenopathy or pericardial effusion. Evaluation of the lungs suboptimal due to motion artifact. Question subtle groundglass opacities in both lower lobes. Additional linear atelectatic changes in the right middle lobe and lingula. Upper lung doe are unremarkable. No suspicious pleural effusions. Limited images of the upper abdomen demonstrate mild left hydronephrosis without left hydroureter. Question proximal duodenal diverticulum. IMPRESSION: 1. No evidence for pulmonary embolus. 2. Mildly ectatic ascending aorta and left heart. 3. Motion artifact. Question subtle groundglass opacities in both lower lobes. Not definitely an infiltrate and could be related to mosaic perfusion. If there is clinical suspicion of viral infection, very early changes of this diagnosis are not excluded.
--- NOTE | 2019-11-13 22:08 | RADIOLOGY REPORT (SQ) ---
EXAM DESCRIPTION: CLINICAL HISTORY: 49 years Female cp/sob COMPARISON: None TECHNIQUE: Axial images without IV contrast. Sagittal coronal reconstruction. FINDINGS: Normal size ventricles. No suspicious intra-axial or extra-axial abnormalities. Mastoid air cells and bony calvarium without acute findings. Mild ethmoid thickening. Nasal septum deviation to the left. Thickening of nasal turbinates. Retention cyst in the right maxillary sinus. IMPRESSION: 1. CT of the brain is unremarkable. 2. Sinus disease probably not acute.
[2019-11-13 22:23] VITALS: BP 164/95
[2019-11-14] MEDS ORDERED: ACETAMINOPHEN SOLN 325 MG/10.15 ML UDCUP PO ONE (00:50)
== END 2019-11-14 03:02 | disposition home or self-care (01) ==
LOC: ER 19:47
DX: Z03.818 Encounter for observation for suspected exposure to other biological agents ruled out (principal); R07.89 Other chest pain; G44.319 Acute post-traumatic headache, not intractable; D72.829 Elevated white blood cell count, unspecified; H53.8 Other visual disturbances; R53.81 Other malaise; R53.1 Weakness; R00.0 Tachycardia, unspecified; R79.89 Other specified abnormal findings of blood chemistry; F17.200 Nicotine dependence, unspecified, uncomplicated; I25.10 Atherosclerotic heart disease of native coronary artery without angina pectoris; I25.2 Old myocardial infarction; I10 Essential (primary) hypertension; E11.9 Type 2 diabetes mellitus without complications; Z89.611 Acquired absence of right leg above knee; Z88.8 Allergy status to other drugs, medicaments and biological substances; Z88.6 Allergy status to analgesic agent; Z88.5 Allergy status to narcotic agent
CPT/HCPCS: 93005; 99285; 36415; 85025; 87635; 80053; 84484; 70450; 71275; 93010; J2270; J7030

== ENCOUNTER 2019-11-16 16:18 | Inpatient (IN) | payer MEDICAID ==
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
[2019-11-16] MEDS ORDERED: LORAZEPAM INJ 2 MG/1 ML VIAL IV ONE (17:51)
[2019-11-16] MEDS ORDERED: HALOPERIDOL LACTATE INJ 5 MG/1 ML VIAL IM ONE (17:51)
[2019-11-16 20:02] LABS: ABSOLUTE BASOPHILS # (AUTO) 0.1 10^3/uL (0.0-0.2); ABSOLUTE EOSINOPHILS # (AUTO) 0.1 10^3/uL (0.0-0.6); ABSOLUTE LYMPHOCYTES (AUTO) 2.8 10^3/uL (0.5-4.7); ABSOLUTE MONOCYTES (AUTO) 0.7 10^3/uL (0.1-1.4); ABSOLUTE NEUT (AUTO) 10.1 10^3/uL (1.7-8.2); BASOPHILS % (AUTO) 0.6 % (0-2); EOSINOPHILS % (AUTO) 0.9 % (0-6); HEMATOCRIT 37.2 % (36.0-47.0); HEMOGLOBIN 12.6 g/dL (12.0-15.5); LYMPHOCYTES % (AUTO) 19.9 % (13-45); MEAN CORPUSCULAR HEMOGLOBIN 28.4 pg (27.0-33.4); MEAN CORPUSCULAR HGB CONC 33.9 g/dL (32.0-36.0); MEAN CORPUSCULAR VOLUME 84 fl (80-97); PLATELET COUNT 370 10^3/uL (150-450); RED BLOOD COUNT 4.45 10^6/uL (3.72-5.28); RED CELL DISTRIBUTION WIDTH 14.1 % (11.5-14.0); SEGMENTED NEUTROPHILS % (AUTO) 73.6 % (42-78); TOTAL CELLS COUNTED % (AUTO) 100 %; WHITE BLOOD COUNT 13.8 10^3/uL (4.0-10.5)
[2019-11-16 20:18] LABS: ACETAMINOPHEN < 10 ug/mL (10-30); ALBUMIN 4.7 g/dL (3.5-5.0); ALCOHOL < 10 mg/dL (NONE DETECTED); ALKALINE PHOSPHATASE 191 U/L (38-126); ANION GAP 13 (5-19); ASPARTATE AMINO TRANSFERASE 24 U/L (14-36); BILIRUBIN,TOTAL 0.4 mg/dL (0.2-1.3); BLOOD UREA NITROGEN 18 mg/dL (7-20); CALCIUM 9.6 mg/dL (8.4-10.2); CARBON DIOXIDE 24 mmol/L (22-30); CHLORIDE 102 mmol/L (98-107); GLUCOSE 211 mg/dL (75-110); POTASSIUM 3.7 mmol/L (3.6-5.0); SALICYLATE < 1.0 mg/dL (2.0-20.0); TOTAL PROTEIN 8.5 g/dL (6.3-8.2)
[2019-11-17 01:44] LABS: APPEARANCE,URINE TURBID; BILIRUBIN,URINE NEGATIVE (NEGATIVE); COLOR,URINE YELLOW; GLUCOSE, URINE >=500 mg/dL (NEGATIVE); KETONES,URINE NEGATIVE (NEGATIVE); LEUKOCYTE ESTERASE,URINE LARGE (NEGATIVE); NITRITE,URINE NEGATIVE (NEGATIVE); PROTEIN,URINE >=500 mg/dL (NEGATIVE); URINE SPECIFIC GRAVITY 1.017; UROBILINOGEN,URINE NEGATIVE mg/dL (<2.0)
[2019-11-17 02:28] LABS: URINE AMPHETAMINES SCREEN NEGATIVE; URINE BARBITURATES SCREEN NEGATIVE; URINE BENZODIAZEPINES SCREEN NEGATIVE; URINE COCAINE SCREEN NEGATIVE; URINE MARIJUANA (THC) SCREEN NEGATIVE; URINE METHADONE SCREEN NEGATIVE; URINE PHENCYCLIDINE SCREEN NEGATIVE
[2019-11-17] MEDS ORDERED: CEFTRIAXONE INJ 1000 MG VIAL IV ONE (06:17)
[2019-11-17] MEDS ORDERED: ZIPRASIDONE MESYLATE INJ/PF 20 MG SDV IM ONE (06:35)
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
--- NOTE | 2019-11-17 09:17 | RADIOLOGY REPORT (SQ) ---
EXAM DESCRIPTION: CT HEAD WITHOUT IMAGES COMPLETED DATE/TIME: 11/17/2019 8:59 am REASON FOR STUDY: AMS COMPARISON: CT of the head without contrast from 11/13/2019. TECHNIQUE: Axial images acquired through the brain without intravenous contrast. Images reviewed wi th bone, brain and subdural windows. Images stored on PACS. All CT scanners at this facility use dose modulation, iterative reconstruction, and/or weight based d osing when appropriate to reduce radiation dose to as low as reasonably achievable (ALARA). [facility]: Dose Right [facility]: CareDose [facility]: Dose Right [facility]: Teradose 4D [facility]: Hyperlite [employer] RADIATION DOSE: CT Rad equipment meets quality standard of care and radiation dose reduction techniq ues were employed. CTDIvol: 48.6 mGy. DLP: 905 mGy-cm. LIMITATIONS: None. FINDINGS: There is no acute intracranial hemorrhage, vascular territorial infarct, extra-axial fluid collection, mass effect or midline shift. The navas-white matter differentiation is preserved. Ther e is no effacement of the cerebral sulci or basal subarachnoid cisterns. The caliber of the ventricl es is concordant with the degree of sulcation and unchanged from 11/13/2019. The orbits and globes are intact. The mucosal lining of the right maxillary sinus is thickened. The re is no paranasal sinus air-fluid level. The calvarium is intact. IMPRESSION: No acute intracranial abnormality. EVIDENCE OF ACUTE STROKE: NO. COMMENT: Quality ID # [id number]: Final reports with documentation of one or more dose reduction techniques (e.g., Automated exposure control, adjustment of the mA and/or kV according to patient size, use of iterative reconstruction technique) TECHNICAL DOCUMENTATION: JOB ID: [id number] 2010 [employer]- All Rights Reserved Reading location - IP/workstation name: [email or web address]
[2019-11-17] MEDS ORDERED: ACETAMINOPHEN 325 MG TABLET PO PRN (10:00)
[2019-11-17] MEDS ORDERED: MAG HYDROX/AL HYDROX/SIMETH SUSP 30 ML UDCUP PO PRN (10:00)
[2019-11-17] MEDS ORDERED: PROMETHAZINE HCL 25 MG TABLET PO PRN (10:00)
[2019-11-17] MEDS ORDERED: DEXTROSE 40% GEL 15 GM TUBE PO PRN ×2 (10:09)
[2019-11-17] MEDS ORDERED: DEXTROSE 50%-WATER 25 GM/50 ML DISP.SYRIN IV PRN ×2 (10:09)
[2019-11-17] MEDS ORDERED: GLUCAGON,HUMAN RECOMB 1 MG INJ IM PRN (10:09)
--- NOTE | 2019-11-17 10:17 | PDOC H&P ---
History of Present Illness Admission Date/PCP: 11/17/19 06:33 Patient complains of: Confusion and agitation History of Present Illness: GIORGI JAEGER is a 49 year old female with a history of severe peripheral arterial disease, right above-knee amputation, history of deep venous thromboses, hypertension and diabetes. Family reports that she became confused acutely. They state there was a similar episode last year but her glucose was 800 at the time. In the emergency department she had a minimally elevated white blood cell count and a markedly positive urinalysis. She did become severely agitated. She was a very difficult venous access stick and when they finally had an IV in place she pulled it out. They required multiple personnel including security to restrain her. Interestingly, she was able to relate much of her medical history as well as listing most of her medications. For some reason she asked me how many organs are in the body and she in fact named just about all of them. A CT scan of the head is pending. She did have a fall on October 25. She was in the emergency department on Wednesday, November 12 and I believe her complaint was headache. CT scan of the head at that time showed sinus thickening but no other acute findings. The patient was seen by psychiatry in the emergency department and is currently under involuntary commitment. I will try and avoid excessive blood tests. I will utilize oral antibiotics for her infection. I have ordered fingersticks but only twice a day with sliding scale. I have asked that they encourage p.o. fluids in lieu of IV fluids. Although she had significant insight in certain areas past medical history is mostly from old records. Past Medical History Cardiac Medical History: Reports: Coronary Artery Disease, Myocardial Infarction - all per emr, Hypertension Pulmonary Medical History: Neurological Medical History: Reports: Migraine - per emr Endocrine Medical History: Reports: Diabetes Mellitus Type 2 - per emr confirmed BF on insulin usually compliant GI Medical History: Reports: Gastroesophageal Reflux Disease - per emr Musculoskeltal Medical History: Reports: Arthritis - per emr "OSTEO" not differientated per me Psychiatric Medical History: Reports: Tobacco Dependency Denies: Depression Hematology: Reports: None Infectious Medical History: Reports: None Past Surgical History Past Surgical History: Reports: Section - X3, Cholecystectomy, Hysterectomy, Orthopedic Surgery - R FOOT, Other - couldn't confirm above (+)s per emr 2/2 pt mental status Social History Information Source: Patient, [facility] Records Lives with: Family Smoking Status: Current Every Day Smoker Electronic Cigarette use?: No Frequency of Alcohol Use: None - Unknown Hx Recreational Drug Use: No Hx Prescription Drug Abuse: No - Advance Directive Resuscitation Status: Full Code Family History Family History: Reviewed & Not Pertinent Parental Family History Reviewed: No Children Family History Reviewed: No Sibling(s) Family History Reviewed.: No Medication/Allergy Home Medications: Apixaban [Eliquis 5 mg Tablet] 5 mg PO BID 11/17/19 Cyclobenzaprine HCl [Flexeril 10 mg Tablet] 10 mg PO BID 11/17/19 Diazepam [Valium 5 mg Tablet] 5 mg PO DAILYP PRN 11/17/19 Loratadine [Claritin 10 mg Tablet] 10 mg PO DAILY 11/17/19 Losartan Potassium [Cozaar 50 mg Tablet] 50 mg PO DAILY 11/17/19 Oxybutynin Chloride [Ditropan 5 Mg Tablet] 5 mg PO DAILY 11/17/19 Oxycodone HCl/Acetaminophen [Percocet 10-325 Mg Tablet] 1 each PO TIDP PRN 11/17/19 Pantoprazole Sodium [Protonix] 40 mg PO QHS 11/17/19 Promethazine HCl [Phenergan 25 mg Tablet] 25 mg PO BID 11/17/19 Trazodone HCl 50 mg PO QHS 11/17/19 Zolpidem Tartrate [Ambien 5 mg Tablet] 5 mg PO QHS 11/17/19 Allergies/Adverse Reactions: aspirin [Aspirin] Allergy (Intermediate, Verified 03/21/12 20:32) Feels hot & itchy meperidine HCl [From Demerol] Allergy (Intermediate, Verified 03/21/12 20:32) Get very hot tramadol [Tramadol] Allergy (Intermediate, Verified 03/21/12 20:32) Feel hot & itchy Review of Systems All systems: reviewed and no additional remarkable complaints except as stated Constitutional: PRESENT: headache(s) Eyes: PRESENT: visual disturbances Musculoskeletal: PRESENT: deformity - Right above-knee amputation Neurological: PRESENT: confusion - The patient was slow to answer some questions but in fact provided significant detail of her medical history. She did tend to ramble. Physical Exam Vital Signs: Temp Pulse Resp BP Pulse Ox 97.5 F 101 H 18 156/87 H 97 11/17/19 08:16 11/17/19 08:16 11/17/19 08:16 11/17/19 08:16 11/17/19 08:16 General appearance: PRESENT: cooperative - She was not agitated during this encounter, mild distress, thin, well-developed Head exam: PRESENT: normocephalic. ABSENT: atraumatic - Still with fading black and blue under the right eye from a fall 3 weeks ago Eye exam: PRESENT: conjunctiva pink. ABSENT: scleral icterus Ear exam: PRESENT: normal external ear exam. ABSENT: bleeding, drainage Mouth exam: PRESENT: dry mucosa, tongue midline Respiratory exam: PRESENT: clear to auscultation junior, symmetrical, unlabored. ABSENT: rales, rhonchi, tachypnea, wheezes Cardiovascular exam: PRESENT: RRR, +S1, +S2 GI/Abdominal exam: PRESENT: normal bowel sounds, soft. ABSENT: distended, guarding, tenderness Rectal exam: PRESENT: deferred Gentrourinary exam: ABSENT: indwelling catheter Extremities exam: PRESENT: other - Right above-knee amputation. ABSENT: pedal edema Musculoskeletal exam: PRESENT: deformity - Right above-knee amputation. ABSENT: ambulatory Neurological exam: PRESENT: alert, awake, oriented to person, oriented to place Psychiatric exam: PRESENT: flat affect. ABSENT: agitated - As noted above the patient was not agitated during this encounter, anxious Focused psych exam: ABSENT: delusional, paranoid Skin exam: PRESENT: dry, normal color, warm. ABSENT: rash Results Laboratory Results: 11/16/19 19:40 11/16/19 19:40 11/16/19 11/16/19 11/17/19 19:40 19:40 01:30 WBC 13.8 H RBC 4.45 Hgb 12.6 Hct 37.2 MCV 84 MCH 28.4 MCHC 33.9 RDW 14.1 H Plt Count 370 Seg Neutrophils % 73.6 Sodium 139.4 Potassium 3.7 Chloride 102 Carbon Dioxide 24 Anion Gap 13 BUN 18 Creatinine 0.83 Est GFR ( Amer) > 60 Glucose 211 H Calcium 9.6 Total Bilirubin 0.4 AST 24 Alkaline Phosphatase 191 H Total Protein 8.5 H Albumin 4.7 Urine Color YELLOW Urine Appearance TURBID Urine pH 5.0 Ur Specific [place] 1.017 Urine Protein >=500 H Urine Glucose (UA) >=500 H Urine Ketones NEGATIVE Urine Blood MODERATE H Urine Nitrite NEGATIVE Ur Leukocyte Esterase LARGE H Urine WBC (Auto) >182 Urine RBC (Auto) 59 Impressions: Head CT 11/16/19 18:13 IMPRESSION: No acute intracranial abnormality. EVIDENCE OF ACUTE STROKE: NO. Assessment and Plan - Diagnosis (1) Delirium Is this a current diagnosis for this admission?: Yes Plan: 11/17/2019 The patient was confused at home. It was a fairly acute onset. Addition, she was extremely agitated in the emergency department. Insertion of an IV was tried 6 times. When he finally did obtain IV access she pulled it out. She was so agitated that multiple personnel had to restrain her. She does have a markedly positive urinalysis and we were able to get 1 set of blood cultures. She does have a slightly elevated white blood cell count. I have chosen to start her on oral antibiotics and minimize blood testing to avoid instigating outbursts. She is currently under involuntary commitment. Psychiatry will be seeing her regularly as well. I believe the altered mental status is from the urinary tract infection (2) UTI (urinary tract infection) Qualifiers: Urinary tract infection type: acute cystitis Hematuria presence: with hematuria Qualified Code(s): N30.01 - Acute cystitis with hematuria Is this a current diagnosis for this admission?: Yes Plan: 11/17/2019 Symptoms have been occurring for several days now. She states she took Pyridium earlier in the week. Going to utilize ciprofloxacin to try and avoid intravenous administration of antibiotics as this will only cause significant agitation from the patient. (3) Peripheral arterial disease Is this a current diagnosis for this admission?: Yes Plan: 11/17/2019 Continue apixaban. The patient is allergic to aspirin. Continue other cardiac medications. (4) Coronary artery disease Qualifiers: Coronary Disease-Associated Artery/Lesion type: lummi artery [place] vs. transplanted heart: lummi heart Associated angina: without angina Qualified Code(s): I25.10 - Atherosclerotic heart disease of lummi coronary artery without angina pectoris Is this a current diagnosis for this admission?: Yes Plan: 11/17/2019 History of severe atherosclerosis. We will continue her current medication regimen. (5) Hyperglycemia due to type 2 diabetes mellitus Qualifiers: Diabetes mellitus salvage determiner insulin use: without salvage determiner use Qualified Co de(s): E11.65 - Type 2 diabetes mellitus with hyperglycemia Is this a current diagnosis for this admission?: Yes Plan: 11/17/2019 Patient mentioned that she was on metformin for diabetes. There was no mention of any diabetic medications on the medication reconciliation. We will monitor her Accu-Cheks and possibly initiate oral therapy based on those results. (6) Hypertension Qualifiers: Hypertension type: essential hypertension Qualified Code(s): I10 - Es sential (primary) hypertension Is this a current diagnosis for this admission?: Yes Plan: 11/17/2019 Continue antihypertensive regimen (7) Headache Qualifiers: Headache type: post-traumatic Headache chronicity pattern: acute headache Intractability: intractable Qualified Code(s): G44.311 - Acute post-traumatic headache, intractable Is this a current diagnosis for this admission?: Yes Plan: 11/17/2019 The patient is complaining of right-sided headache. She did fall 3 weeks ago. Past medical history also lists migraine headaches. Analgesia will be available as needed. (8) Tobacco dependence due to cigarettes Is this a current diagnosis for this admission?: Yes Plan: 11/17/2019 She smokes 1/2 packs of cigarettes daily. She reports that this is down from 4 to 5 packs a day. She also declined a nicotine patch stating that if I am trying to quit widely to give me more nicotine. (9) Anxiety Is this a current diagnosis for this admission?: Yes Plan: 11/17/2019 Psychiatry report was reviewed. The patient is much calmer this morning. She is not currently oriented to person medication. Antipsychotic medication will be available as needed. She is currently under involuntary commitment. - Time Time Spent with patient: 35 or more minutes Medications reviewed and adjusted accordingly: Yes Anticipated discharge: Home with Homehealth
[2019-11-17] MEDS ORDERED: ZIPRASIDONE MESYLATE INJ/PF 20 MG SDV IM PRN (10:19)
[2019-11-17] MEDS ORDERED: FAMOTIDINE 20 MG TABLET PO SCH (11:00)
[2019-11-17] MEDS: OXYCODONE-ACETAMINOPHEN 5-325 MG TABLET PO PRN ×3 (11:36→21:28)
[2019-11-17] MEDS: CIPROFLOXACIN HCL 500 MG TABLET PO SCH ×2 (11:36→21:28)
[2019-11-17] MEDS ORDERED: DIAZEPAM 5 MG TABLET PO PRN (13:28)
[2019-11-17] MEDS: METFORMIN HCL 500 MG TABLET PO SCH (17:08)
[2019-11-17] MEDS: CYCLOBENZAPRINE HCL 10 MG TABLET PO SCH (17:08)
[2019-11-17] MEDS: APIXABAN 5 MG TABLET PO SCH (17:08)
[2019-11-17] MEDS: INSULIN REG, HUMAN 100 UNIT/ML 3 ML VIAL (PYX) SUBCUT SCH (17:09)
[2019-11-17] MEDS ORDERED: PANTOPRAZOLE SODIUM 40 MG PACKET.DR PO SCH (22:00)
[2019-11-17] MEDS ORDERED: TRAZODONE HCL 50 MG TABLET PO SCH (22:00)
[2019-11-18] MEDS: OXYCODONE-ACETAMINOPHEN 5-325 MG TABLET PO PRN ×3 (03:00→13:12)
[2019-11-18] MEDS: INSULIN REG, HUMAN 100 UNIT/ML 3 ML VIAL (PYX) SUBCUT SCH (08:04)
[2019-11-18] MEDS: METFORMIN HCL 500 MG TABLET PO SCH (08:04)
[2019-11-18] MEDS ORDERED: OXYBUTYNIN CHLORIDE 5 MG TABLET PO SCH (10:00)
[2019-11-18] MEDS ORDERED: LORATADINE 10 MG TABLET PO SCH (10:00)
[2019-11-18] MEDS ORDERED: LOSARTAN POTASSIUM 50 MG TABLET PO SCH (10:00)
[2019-11-18] MEDS: CYCLOBENZAPRINE HCL 10 MG TABLET PO SCH (10:30)
[2019-11-18] MEDS: CIPROFLOXACIN HCL 500 MG TABLET PO SCH (10:30)
[2019-11-18] MEDS: APIXABAN 5 MG TABLET PO SCH (10:30)
--- NOTE | 2019-11-18 11:17 | PDOC DISCHARGE SUMMARY ---
Impression - Admit/DC Date/PCP Admission Date/Primary Care Provider: 11/17/19 06:33 Discharge Date: 11/18/19 - Discharge Diagnosis (1) Delirium Is this a current diagnosis for this admission?: Yes (2) UTI (urinary tract infection) Is this a current diagnosis for this admission?: Yes (3) Peripheral arterial disease Is this a current diagnosis for this admission?: Yes (4) Coronary artery disease Is this a current diagnosis for this admission?: Yes (5) Hyperglycemia due to type 2 diabetes mellitus Is this a current diagnosis for this admission?: Yes (6) Hypertension Is this a current diagnosis for this admission?: Yes (7) Headache Is this a current diagnosis for this admission?: Yes (8) Tobacco dependence due to cigarettes Is this a current diagnosis for this admission?: Yes (9) Anxiety Is this a current diagnosis for this admission?: Yes - Assessment Summary: The patient was encephalopathic on presentation. The delirium was most likely a metabolic encephalopathy from her infection. She did quite well and once on antibiotics she settled down quite nicely and in fact was pleasant to work with. She will discharge home with oral antibiotics to complete her course. I will reach out and contact her if the urine culture results indicate that the change in antibiotic therapy is warranted. - Additional Information Resuscitation Status: Full Code Discharge Diet: Cardiac, Diabetic Discharge Activity: Balance Activity w/Rest Referrals: DOMINIQUE DIAZ MD [NO LOCAL MD] - (We will schedule a follow-up and contact you with the date and time. Thank you and have a fabulous day!) Prescriptions: Ciprofloxacin HCl [Cipro 500 mg Tablet] 500 mg PO Q12 #14 tablet Home Medications: Apixaban [Eliquis 5 mg Tablet] 5 mg PO BID 11/17/19 Cyclobenzaprine HCl [Flexeril 10 mg Tablet] 10 mg PO BID 11/17/19 Diazepam [Valium 5 mg Tablet] 5 mg PO DAILYP PRN 11/17/19 Loratadine [Claritin 10 mg Tablet] 10 mg PO DAILY 11/17/19 Losartan Potassium [Cozaar 50 mg Tablet] 50 mg PO DAILY 11/17/19 Oxybutynin Chloride [Ditropan 5 mg Tablet] 5 mg PO DAILY 11/17/19 Oxycodone HCl/Acetaminophen [Percocet 10-325 mg Tablet] 1 each PO TIDP PRN 11/17/19 Pantoprazole Sodium [Protonix] 40 mg PO QHS 11/17/19 Promethazine HCl [Phenergan 25 mg Tablet] 25 mg PO BID 11/17/19 Trazodone HCl 50 mg PO QHS 11/17/19 Zolpidem Tartrate [Ambien 5 mg Tablet] 5 mg PO QHS 11/17/19 Ciprofloxacin HCl [Cipro 500 mg Tablet] 500 mg PO Q12 #14 tablet 11/18/19 Metformin HCl [Glucophage 500 mg Tablet] 500 mg PO BIDACBS tablet 11/18/19 History of Present Illiness History of Present Illness: GIORGI JAEGER is a 49 year old female with a history of severe peripheral arterial disease, right above-knee amputation, history of deep venous thromboses, hypertension and diabetes. Family reports that she became confused acutely. They state there was a similar episode last year but her glucose was 800 at the time. In the emergency department she had a minimally elevated white blood cell count and a markedly positive urinalysis. She did become severely agitated. She was a very difficult venous access stick and when they finally had an IV in place she pulled it out. They required multiple personnel including security to restrain her. Interestingly, she was able to relate much of her medical history as well as listing most of her medications. For some reason she asked me how many organs are in the body and she in fact named just about all of them. A CT scan of the head is pending. She did have a fall on October 25. She was in the emergency department on November 12 and I believe her complaint was headache. CT scan of the head at that time showed sinus thickening but no other acute findings. The patient was seen by psychiatry in the emergency department and is currently under involuntary commitment. I will try and avoid excessive blood tests. I will utilize oral antibiotics for her infection. I have ordered fingersticks but only twice a day with sliding scale. I have asked that they encourage p.o. fluids in lieu of IV fluids. Although she had significant insight in certain areas past medical history is mostly from old records. Hospital Course Hospital Course: Initially the patient was very agitated, mostly in the emergency department, and when I saw her she had calmed down significantly. It may have been a combination of moving up to the floor and time passing with the medication administration. From the history and physical you can see that she in fact is quite knowledgeable about certain things. She knew most of her medications. She had meaningful discussion with this provider. Clearly that is not someone who is completely encephalopathic. I believe it was the urinary tract infection that prompted the initial delirium. The patient was better each day. We did use a strategy of minimal intervention and try to avoid needle sticks as much as possible. To that end we did institute oral antibiotic therapy. She has done quite well. She is anxious to discharge and being that she is on oral antibiotic therapy and no longer encephalopathic I will discharge her to home. Psychiatry agrees and has rescinded the IVC. Physical Exam Vital Signs: Temp Pulse Resp BP Pulse Ox 98.5 F 74 16 136/79 H 97 11/18/19 07:23 11/18/19 07:23 11/18/19 07:23 11/18/19 07:23 11/18/19 07:23 Intake & Output 11/17/19 11/18/19 11/19/19 06:59 06:59 06:59 Intake Total 1499 Output Total 200 Balance 1299 Weight 53.2 kg General appearance: PRESENT: no acute distress Respiratory exam: PRESENT: clear to auscultation junior, symmetrical, unlabored. ABSENT: rales, rhonchi, tachypnea Cardiovascular exam: PRESENT: RRR, +S1, +S2 GI/Abdominal exam: PRESENT: normal bowel sounds, soft. ABSENT: distended, guarding, tenderness Rectal exam: PRESENT: deferred Gentrourinary exam: ABSENT: indwelling catheter Extremities exam: PRESENT: other - Above-knee amputation. ABSENT: pedal edema Neurological exam: PRESENT: alert, awake, oriented to person, oriented to place, oriented to situation. ABSENT: altered Psychiatric exam: PRESENT: appropriate affect. ABSENT: agitated, anxious Focused psych exam: ABSENT: delusional, paranoid, restlessness Results Laboratory Results: WBC 13.8 10^3/uL (4.0-10.5) H 11/16/19 19:40 RBC 4.45 10^6/uL (3.72-5.28) 11/16/19 19:40 Hgb 12.6 g/dL (12.0-15.5) 11/16/19 19:40 Hct 37.2 % (36.0-47.0) 11/16/19 19:40 MCV 84 fl (80-97) 11/16/19 19:40 MCH 28.4 pg (27.0-33.4) 11/16/19 19:40 MCHC 33.9 g/dL (32.0-36.0) 11/16/19 19:40 RDW 14.1 % (11.5-14.0) H 11/16/19 19:40 Plt Count 370 10^3/uL (150-450) 11/16/19 19:40 Lymph % (Auto) 19.9 % (13-45) 11/16/19 19:40 [place] % (Auto) 5.0 % (3-13) 11/16/19 19:40 Eos % (Auto) 0.9 % (0-6) 11/16/19 19:40 Baso % (Auto) 0.6 % (0-2) 11/16/19 19:40 Absolute Neuts (auto) 10.1 10^3/uL (1.7-8.2) H 11/16/19 19:40 Absolute Lymphs (auto) 2.8 10^3/uL (0.5-4.7) 11/16/19 19:40 Absolute Monos (auto) 0.7 10^3/uL (0.1-1.4) 11/16/19 19:40 Absolute Eos (auto) 0.1 10^3/uL (0.0-0.6) 11/16/19 19:40 Absolute Basos (auto) 0.1 10^3/uL (0.0-0.2) 11/16/19 19:40 Seg Neutrophils % 73.6 % (42-78) 11/16/19 19:40 Sodium 139.4 mmol/L (137-145) 11/16/19 19:40 Potassium 3.7 mmol/L (3.6-5.0) 11/16/19 19:40 Chloride 102 mmol/L (98-107) 11/16/19 19:40 Carbon Dioxide 24 mmol/L (22-30) 11/16/19 19:40 Anion Gap 13 (5-19) 11/16/19 19:40 BUN 18 mg/dL (7-20) 11/16/19 19:40 Creatinine 0.83 mg/dL (0.52-1.25) 11/16/19 19:40 Est GFR ( Amer) > 60 (>60) 11/16/19 19:40 Est GFR (MDRD) Non-Af > 60 (>60) 11/16/19 19:40 Glucose 211 mg/dL (75-110) H 11/16/19 19:40 POC Glucose 162 mg/dL (70-110) H 11/18/19 10:52 Calcium 9.6 mg/dL (8.4-10.2) 11/16/19 19:40 Total Bilirubin 0.4 mg/dL (0.2-1.3) 11/16/19 19:40 Direct Bilirubin 0.0 mg/dL (0.0-0.4) 11/16/19 19:40 Neonat Total Bilirubin Not Reportable 11/16/19 19:40 Neonat Direct Bilirubin Not Reportable 11/16/19 19:40 Neonat Indirect Bili Not Reportable 11/16/19 19:40 AST 24 U/L (14-36) 11/16/19 19:40 ALT 15 U/L (<35) 11/16/19 19:40 Alkaline Phosphatase 191 U/L (38-126) H 11/16/19 19:40 Total Protein 8.5 g/dL (6.3-8.2) H 11/16/19 19:40 Albumin 4.7 g/dL (3.5-5.0) 11/16/19 19:40 Urine Color YELLOW 11/17/19 01:30 Urine Appearance TURBID 11/17/19 01:30 Urine pH 5.0 (5.0-9.0) 11/17/19 01:30 Ur Specific [place] 1.017 11/17/19 01:30 Urine Protein >=500 mg/dL (NEGATIVE) H 11/17/19 01:30 Urine Glucose (UA) >=500 mg/dL (NEGATIVE) H 11/17/19 01:30 Urine Ketones NEGATIVE mg/dL (NEGATIVE) 11/17/19 01:30 Urine Blood MODERATE (NEGATIVE) H 11/17/19 01:30 Urine Nitrite NEGATIVE (NEGATIVE) 11/17/19 01:30 Urine Bilirubin NEGATIVE (NEGATIVE) 11/17/19 01:30 Urine Urobilinogen NEGATIVE mg/dL (<2.0) 11/17/19 01:30 Ur Leukocyte Esterase LARGE (NEGATIVE) H 11/17/19 01:30 Urine WBC (Auto) >182 /HPF 11/17/19 01:30 Urine RBC (Auto) 59 /HPF 11/17/19 01:30 Urine WBC Clumps MANY /HPF 11/17/19 01:30 Squamous Epi Cells Auto 3 /HPF 11/17/19 01:30 Urine Yeast (Budding) PRESENT /HPF 11/17/19 01:30 Urine Ascorbic Acid NEGATIVE (NEGATIVE) 11/17/19 01:30 Salicylates < 1.0 mg/dL (2.0-20.0) L 11/16/19 19:40 Urine Opiates Screen NEGATIVE 11/17/19 01:30 Urine Methadone Screen NEGATIVE 11/17/19 01:30 Acetaminophen < 10 ug/mL (10-30) L 11/16/19 19:40 Ur Barbiturates Screen NEGATIVE 11/17/19 01:30 Ur Phencyclidine Scrn NEGATIVE 11/17/19 01:30 Ur Amphetamines Screen NEGATIVE 11/17/19 01:30 U Benzodiazepines Scrn NEGATIVE 11/17/19 01:30 Urine Cocaine Screen NEGATIVE 11/17/19 01:30 U Marijuana (THC) Screen NEGATIVE 11/17/19 01:30 Serum Alcohol < 10 mg/dL (NONE DETECTED) 11/16/19 19:40 Impressions: Head CT 11/16/19 18:13 IMPRESSION: No acute intracranial abnormality. EVIDENCE OF ACUTE STROKE: NO. Plan Health Concerns: Sensitivity to infection with a short window to a metabolic encephalopathy. Plan of Treatment: Complete antibiotic therapy at home. She has done quite well on the Glucophage and I believe she needs a new prescription for that as well. She needs follow- up with her primary care provider within the week. Goals: Complete resolution of the infection. Time Spent: Greater than 30 Minutes Stroke Is this a Stroke Patient?: No Acute Heart Failure - Is this a Heart Failure Patient?: No
[2019-11-18 12:50] VITALS: BP 142/76
== END 2019-11-18 13:41 | disposition home or self-care (01) | DRG 689 ==
LOC: ER 16:18 → EH 11-17 06:33 → 4S 11-17 08:00
PROVIDERS: ADMIT Hospitalist; ATTEND Hospitalist
DX: N30.01 Acute cystitis with hematuria (principal); G93.41 Metabolic encephalopathy; E11.51 Type 2 diabetes mellitus with diabetic peripheral angiopathy without gangrene; E11.65 Type 2 diabetes mellitus with hyperglycemia; I25.10 Atherosclerotic heart disease of native coronary artery without angina pectoris; I10 Essential (primary) hypertension; F17.210 Nicotine dependence, cigarettes, uncomplicated; F41.9 Anxiety disorder, unspecified; R41.0 Disorientation, unspecified; K21.9 Gastro-esophageal reflux disease without esophagitis; G44.311 Acute post-traumatic headache, intractable; G43.909 Migraine, unspecified, not intractable, without status migrainosus; I25.2 Old myocardial infarction; W19.XXXA Unspecified fall, initial encounter; Y92.9 Unspecified place or not applicable; Z79.899 Other long term (current) drug therapy; Z79.84 Long term (current) use of oral hypoglycemic drugs; Z79.01 Long term (current) use of anticoagulants; Z89.511 Acquired absence of right leg below knee; Z88.6 Allergy status to analgesic agent
CPT/HCPCS: 36415; 70450; 80053; 80307; 81001; 82962; 85025; 87086; 96372; 96374; 99285; J1630; J1815; J2060; J3486; J3490

== ENCOUNTER 2019-12-29 09:25 | Inpatient (IN) | payer MEDICAID ==
--- NOTE | 2019-12-29 10:43 | ER Document Report ---
ED Medical Screen (RME) - General Chief Complaint: Nausea/Vomiting Stated Complaint: NAUSEA/VOMITING Time Seen by Provider: 12/29/19 10:41 Primary Care Provider: LEEANN BARAHONA MD [Primary Care Provider] - Follow up as needed Mode of Arrival: Ambulatory Information source: Patient Notes: This is a 49-year-old female presents to the emergency room today with nausea vomiting which is been ongoing for approximately 24 hours she does have a history of gastroparesis as well as esophagitis from continued vomitus. Spelt belly pain. TRAVEL OUTSIDE OF THE [place] IN LAST 30 DAYS: No - couldn't obtain 2/2 pt mental status - Related Data Allergies/Adverse Reactions: aspirin [Aspirin] Allergy (Intermediate, Verified 03/21/12 20:32) Feels hot & itchy meperidine HCl [From Demerol] Allergy (Intermediate, Verified 03/21/12 20:32) Get very hot tramadol [Tramadol] Allergy (Intermediate, Verified 03/21/12 20:32) Feel hot & itchy Past Medical History - Past Medical History Cardiac Medical History: Reports: Hx Coronary Artery Disease, Hx Heart Attack - all per emr, Hx Hypertension Pulmonary Medical History: Neurological Medical History: Reports: Hx Migraine - per emr Endocrine Medical History: Reports: Hx Diabetes Mellitus Type 2 - per emr confirmed BF on insulin usually compliant GI Medical History: Reports: Hx Gastroesophageal Reflux Disease - per emr Musculoskeltal Medical History: Reports Hx Arthritis - per emr "OSTEO" not differientated per me, Reports Hx Musculoskeletal Trauma - per emr Psychiatric Medical History: Reports: Hx Anxiety Denies: Hx Depression Traumatic Medical History: Reports: Hx Fractures - not clarified/reviewed by me, per emr Infectious Medical History: Past Surgical History: Reports: Hx Abdominal Surgery - LAP, Hx Section - X3, Hx Cholecystectomy, Hx Gynecologic Surgery - 1 , Hx Hysterectomy, Hx Oral Surgery, Hx Orthopedic Surgery - R FOOT, Other - couldn't confirm above (+)s per emr 2/2 pt mental status - Immunizations Immunizations up to date: Yes Hx Diphtheria, Pertussis, Tetanus Vaccination: Yes - per emr i didn't confirm Physical Exam - Vital signs Vitals: Temp Pulse Resp BP Pulse Ox 98.6 F 125 H 18 153/97 H 97 12/29/19 09:47 12/29/19 09:47 12/29/19 09:47 12/29/19 09:47 12/29/19 09:47 - Abdominal Inspection: Normal Distension: No distension Bowel sounds: Normal Tenderness: Nontender Course - Vital Signs Vital signs: Temp Pulse Resp BP Pulse Ox 98.6 F 125 H 18 153/97 H 97 12/29/19 09:47 12/29/19 09:47 12/29/19 09:47 12/29/19 09:47 12/29/19 09:47 Doctor's Discharge - Discharge Referrals: LEEANN BARAHONA MD [Primary Care Provider] - Follow up as needed
[2019-12-29] MEDS ORDERED: PROMETHAZINE HCL INJ 25 MG/1 ML VIAL IV ONE (10:44)
[2019-12-29] MEDS ORDERED: NORMAL SALINE 1000 ML 1,000 ML IV PRN ×2 (10:44→17:05)
[2019-12-29 11:10] LABS: HEMATOCRIT 39.8 % (36.0-47.0); HEMOGLOBIN 12.9 g/dL (12.0-15.5); MEAN CORPUSCULAR HEMOGLOBIN 28.1 pg (27.0-33.4); MEAN CORPUSCULAR HGB CONC 32.4 g/dL (32.0-36.0); MEAN CORPUSCULAR VOLUME 87 fl (80-97); PLATELET COUNT 406 10^3/uL (150-450); RED BLOOD COUNT 4.58 10^6/uL (3.72-5.28); RED CELL DISTRIBUTION WIDTH 14.7 % (11.5-14.0); WHITE BLOOD COUNT 21.7 10^3/uL (4.0-10.5)
[2019-12-29 11:32] LABS: ABSOLUTE LYMPHOCYTES# (MANUAL) 1.3 10^3/uL (0.5-4.7); ABSOLUTE MONOCYTES # (MANUAL) 0.4 10^3/uL (0.1-1.4); BAND NEUTROPHILS % (MANUAL) 1 % (3-5); BASOPHILS % (MANUAL) 0 % (0-2); EOSINOPHILS % (MANUAL) 0 % (0-6); LYMPHOCYTES % (MANUAL) 6 % (13-45); MONOCYTES % (MANUAL) 2 % (3-13); SEGMENTED NEUTROPHILS % (MAN) 91 % (42-78); TOTAL CELLS COUNTED 100
[2019-12-29 11:33] LABS: RBC MORPHOLOGY COMMENT NORMO-CYTIC/CHROMIC
[2019-12-29 11:34] LABS: PLATELET COMMENT ADEQUATE
[2019-12-29 11:37] LABS: ALBUMIN 4.8 g/dL (3.5-5.0); ALKALINE PHOSPHATASE 100 U/L (38-126); ASPARTATE AMINO TRANSFERASE 17 U/L (14-36); BILIRUBIN,DIRECT 0.1 mg/dL (0.0-0.4); BILIRUBIN,TOTAL 0.5 mg/dL (0.2-1.3); BLOOD UREA NITROGEN 21 mg/dL (7-20); CALCIUM 9.9 mg/dL (8.4-10.2); CARBON DIOXIDE 14 mmol/L (22-30); CHLORIDE 100 mmol/L (98-107); GLUCOSE 354 mg/dL (75-110); POTASSIUM 4.3 mmol/L (3.6-5.0); TOTAL PROTEIN 8.4 g/dL (6.3-8.2)
--- NOTE | 2019-12-29 11:45 | ER Document Report ---
ED GI/ - General Chief Complaint: Nausea/Vomiting Stated Complaint: NAUSEA/VOMITING Time Seen by Provider: 12/29/19 10:41 Primary Care Provider: LEEANN BARAHONA MD [Primary Care Provider] - Follow up as needed Mode of Arrival: Ambulatory Notes: CHIEF COMPLAINT: Abdominal pain and vomiting HPI: 49-year-old diabetic female presenting for abdominal pain with vomiting. Patient states that 3 days ago she choked on a pork chop, was able to vomited up but has continued to have epigastric discomfort with vomiting episodes. States that periodically when she does this she usually takes Protonix, Phenergan and fluids because she dehydrates. Has not taken her medications for her diabetes in the last 2 days. ROS: See HPI - all other systems were reviewed and are otherwise negative Constitutional: no fever Eyes: no drainage, no blurred vision ENT: no runny nose, + sore throat Cardiovascular: no chest pain Resp: no SOB, no cough GI: + vomiting, no diarrhea, positive epigastric abdominal pain : no dysuria Integumentary: no rash Allergy: no hives Musculoskeletal: no extremity pain or swelling Neurological: no numbness/tingling, no weakness MEDICATIONS: I agree with the patient medications as charted by the RN. ALLERGIES: I agree with the allergies as charted by the RN. PAST MEDICAL HISTORY/PAST SURGICAL HISTORY: Reviewed and agree as charted by RN. SOCIAL HISTORY: Reviewed and agree as charted by RN. FAMILY HISTORY: No significant familial comorbid conditions directly related to patient complaint EXAM: Reviewed vital signs as charted by RN. CONSTITUTIONAL: Alert and oriented and responds appropriately to questions. Cachectic-appearing; disheveled HEAD: Normocephalic; atraumatic EYES: PERRL; Conjunctivae clear, sclerae non-icteric ENT: normal nose; no rhinorrhea; moist mucous membranes; pharynx without lesions noted, no uvula edema or deviation, no tonsillar hypertrophy, phonation normal NECK: Supple without meningismus; non-tender; no cervical lymphadenopathy, no masses CARD: RRR; no murmurs, no clicks, no rubs, no gallops; symmetric distal pulses RESP: Normal chest excursion without splinting or tachypnea; breath sounds clear and equal bilaterally; no wheezes, no rhonchi, no rales, pulse oximetry 97% on room air not hypoxic ABD/GI: Normal bowel sounds; non-distended; soft, mild epigastric tenderness on palpation, no rebound, no guarding; no palpable organomegaly or masses. BACK: The back appears normal and is non-tender to palpation, there is no CVA tenderness EXT: Right leg amputation noted; non-tender to palpation; no cyanosis, no effusions, no edema SKIN: Normal color for age and race; warm; dry; good turgor; no acute lesions noted NEURO: Moves all extremities equally; Motor and sensory function intact. PSYCH: The patient's mood and manner are appropriate. Grooming and personal hygiene are disheveled. MDM: 49-year-old female presenting for multiple episodes of vomiting with history of cyclic vomiting issues. States that she does follow with gastroenterology. Patient initial lab work through triage process noted to have a CO2 of 14, glucose greater than 350, probably mild DKA or dehydration. Patient also with a moderate leukocytosis of 21,000. We will aggressively hydrate, CT is pending to evaluate for surgical or infectious process although I suspect that this is likely dehydration from her vomiting TRAVEL OUTSIDE OF THE [place] IN LAST 30 DAYS: No - couldn't obtain 2/2 pt mental status - Related Data Allergies/Adverse Reactions: aspirin [Aspirin] Allergy (Intermediate, Verified 12/29/19 10:43) Feels hot & itchy meperidine HCl [From Demerol] Allergy (Intermediate, Verified 12/29/19 10:43) Get very hot tramadol [Tramadol] Allergy (Intermediate, Verified 12/29/19 10:43) Feel hot & itchy Past Medical History - General Information source: Patient - Social History Smoking Status: Current Every Day Smoker Chew tobacco use (# tins/day): No Frequency of alcohol use: None Drug Abuse: None Family History: Reviewed & Not Pertinent Patient has homicidal ideation: No - Past Medical History Cardiac Medical History: Reports: Hx Coronary Artery Disease, Hx Heart Attack - all per emr, Hx Hypertension Pulmonary Medical History: Neurological Medical History: Reports: Hx Migraine - per emr Endocrine Medical History: Reports: Hx Diabetes Mellitus Type 2 - per emr confirmed BF on insulin usually compliant GI Medical History: Reports: Hx Gastroesophageal Reflux Disease - per emr Musculoskeletal Medical History: Reports Hx Arthritis - per emr "OSTEO" not differientated per me, Reports Hx Musculoskeletal Trauma - per emr Psychiatric Medical History: Reports: Hx Anxiety Denies: Hx Depression Traumatic Medical History: Reports: Hx Fractures - not clarified/reviewed by me, per emr Infectious Medical History: Past Surgical History: Reports: Hx Abdominal Surgery - LAP, Hx Section - X3, Hx Cholecystectomy, Hx Gynecologic Surgery - 1 , Hx Hysterectomy, Hx Oral Surgery, Hx Orthopedic Surgery - R FOOT, Other - couldn't confirm above (+)s per emr 2/2 pt mental status - Immunizations Immunizations up to date: Yes Hx Diphtheria, Pertussis, Tetanus Vaccination: Yes - per emr i didn't confirm Physical Exam - Vital signs Vitals: Temp Pulse Resp BP Pulse Ox 98.6 F 125 H 18 153/97 H 97 12/29/19 09:47 12/29/19 09:47 12/29/19 09:47 12/29/19 09:47 12/29/19 09:47 Course - Re-evaluation Re-evalutation: 12/29/19 13:[address] Guajardo, hospitalist. Requests patient be given insulin regular 5 units IV now bolus and placed on insulin drip. We discussed patient's condition and labs as well as CT imaging. I did speak with the patient she is willing to stay to be admitted. I did check pulses in the patient's left leg given the CT findings and she has good dorsalis pedis pulse. Patient has no leg pain complaints today. She states she saw her vascular surgeon in [place] a week ago and they evaluated the stent in the left leg and it was fine and patent - Vital Signs Vital signs: Temp Pulse Resp BP Pulse Ox 98.6 F 125 H 18 153/97 H 97 12/29/19 09:47 12/29/19 09:47 12/29/19 09:47 12/29/19 09:47 12/29/19 09:47 - Laboratory Result Diagrams: 12/29/19 10:45 12/29/19 10:45 Laboratory results interpreted by me: 12/29/19 12/29/19 12/29/19 10:45 10:45 11:00 WBC 21.7 H RDW 14.7 H Seg Neuts % (Manual) 91 H Band Neutrophils % 1 L Lymphocytes % (Manual) 6 L Monocytes % (Manual) 2 L Abs Neuts (Manual) 20.0 H VBG pH VBG HCO3 Carbon Dioxide 14 L Anion Gap 27 H BUN 21 H Glucose 354 H Total Protein 8.4 H Lipase 17.5 L Urine Protein >=500 H Urine Glucose (UA) >=500 H Urine Ketones 80 H Urine Blood MODERATE H Ur Leukocyte Esterase MODERATE H 12/29/19 12:48 WBC RDW Seg Neuts % (Manual) Band Neutrophils % Lymphocytes % (Manual) Monocytes % (Manual) Abs Neuts (Manual) VBG pH 7.27 L VBG HCO3 15.6 L Carbon Dioxide Anion Gap BUN Glucose Total Protein Lipase Urine Protein Urine Glucose (UA) Urine Ketones Urine Blood Ur Leukocyte Esterase Discharge - Discharge Clinical Impression: DKA (diabetic ketoacidoses) Qualifiers: Diabetes mellitus type: due to underlying condition Diabetes mellitus complication detail: without coma Qualified Code(s): E08.10 - Diabetes mellitus due to underlying condition with ketoacidosis without coma UTI (urinary tract infection) Qualifiers: Urinary tract infection type: acute cystitis Hematuria presence: with hematuria Qualified Code(s): N30.01 - Acute cystitis with hematuria Vomiting Qualifiers: Vomiting type: cyclical vomiting syndrome unrelated to migraine Qualified Code(s): R11.15 - Cyclical vomiting syndrome unrelated to migraine Condition: Stable Disposition: ADMITTED INPATIENT Admitting Provider: Casandra (Hospitalist) Unit Admitted: Telemetry Referrals: LEEANN BARAHONA MD [Primary Care Provider] - Follow up as needed
[2019-12-29 11:48] LABS: ANION GAP 27 (5-19)
[2019-12-29 11:54] LABS: APPEARANCE,URINE CLOUDY; BILIRUBIN,URINE NEGATIVE (NEGATIVE); COLOR,URINE YELLOW; GLUCOSE, URINE >=500 mg/dL (NEGATIVE); KETONES,URINE 80 mg/dL (NEGATIVE); LEUKOCYTE ESTERASE,URINE MODERATE (NEGATIVE); NITRITE,URINE NEGATIVE (NEGATIVE); PROTEIN,URINE >=500 mg/dL (NEGATIVE); URINE SPECIFIC GRAVITY 1.018; UROBILINOGEN,URINE NEGATIVE mg/dL (<2.0)
[2019-12-29] MEDS ORDERED: PANTOPRAZOLE SODIUM 40 MG VIAL IV ONE (12:05)
[2019-12-29] MEDS ORDERED: NORMAL SALINE 1000 ML 1,000 ML IV ONE (12:05)
[2019-12-29] MEDS ORDERED: CEFTRIAXONE 1 GM/D5W RTU 1 GM/50 ML RTUPB IV ONE (12:13)
--- NOTE | 2019-12-29 12:36 | RADIOLOGY REPORT (SQ) ---
EXAM DESCRIPTION: CT ABD/PELVIS WITH IV ONLY IMAGES COMPLETED DATE/TIME: 12/29/2019 12:20 pm REASON FOR STUDY: pain COMPARISON: None. TECHNIQUE: CT scan of the abdomen and pelvis performed using helical scanning technique with dynamic intravenous contrast injection. No oral contrast. Images reviewed with lung, soft tissue, and bone windows. Reconstructed coronal and sagittal MPR images reviewed. Delayed images for evaluation of the urinary system also acquired. All images stored on PACS. All CT scanners at this facility use dose modulation, iterative reconstruction, and/or weight based d osing when appropriate to reduce radiation dose to as low as reasonably achievable (ALARA). [facility]: Dose Right [facility]: CareDose [facility]: Dose Right [facility]: Teradose 4D [facility]: Vungle CONTRAST TYPE AND DOSE: contrast/concentration: Isovue 350.00 mmol/ml; Total Contrast Delivered: 48. 0 ml; Total Saline Delivered: 65.0 ml RENAL FUNCTION: BUN 21 creatinine 0.86 RADIATION DOSE: CT Rad equipment meets quality standard of care and radiation dose reduction techniq ues were employed. CTDIvol: NaN - NaN mGy. DLP: 0 mGy-cm.. LIMITATIONS: None. FINDINGS: LOWER CHEST: No significant findings. No nodules or infiltrates. LIVER: Normal size. No masses. No dilated ducts. SPLEEN: Normal size. No focal lesions. PANCREAS: No masses. No significant calcifications. No adjacent inflammation or peripancreatic fluid collections. Pancreatic duct not dilated. GALLBLADDER: Surgically absent. ADRENAL GLANDS: No significant masses or asymmetry. RIGHT KIDNEY AND URETER: No solid masses. No significant calcifications. No hydronephrosis or hyd roureter. LEFT KIDNEY AND URETER: No solid masses. No significant calcifications. No hydronephrosis or hydr oureter. AORTA AND VESSELS: 21 mm abdominal aortic aneurysm at the bifurcation. No contrast is appreciated in the left femoral graft. RETROPERITONEUM: No retroperitoneal adenopathy, hemorrhage or masses. BOWEL AND PERITONEAL CAVITY: No masses or inflammatory changes. No free fluid or peritoneal masses. APPENDIX: Surgically absent. PELVIS: No mass. The wall of the urinary bladder is slightly thickened. ABDOMINAL WALL: No masses. No hernias. BONES: No significant or acute findings. OTHER: No other significant finding. IMPRESSION: 1. 21 mm aneurysm of the abdominal aorta at the bifurcation. 2. No contrast is seen in the left femoral graft. 3. There appears to be a slight thickening of the wall of the urinary bladder. Correlate for cystit is. TECHNICAL DOCUMENTATION: JOB ID: [id number] Quality ID # [id number]: Final reports with documentation of one or more dose reduction techniques (e.g., Au tomated exposure control, adjustment of the mA and/or kV according to patient size, use of iterative reconstruction technique) 2010 [employer]- All Rights Reserved Reading location - IP/workstation name: [email or web address]
[2019-12-29] MEDS ORDERED: METOCLOPRAMIDE HCL INJ/PF 10 MG/2 ML SDV IV ONE (13:05)
[2019-12-29] MEDS ORDERED: MORPHINE SULFATE 10 MG/ML INJ IV ONE (13:05)
[2019-12-29 13:09] LABS: VENOUS BLOOD BASE EXCESS -10.3 mmol/L; VENOUS BLOOD HCO3 15.6 mmol/L (20-32); VENOUS BLOOD PCO2 35.2 mmHg (35-63); VENOUS BLOOD PH 7.27 (7.30-7.42)
[2019-12-29] MEDS ORDERED: INSULIN REG, HUMAN 100 UNIT/ML 3 ML VIAL (PYX) IV ONE (13:47)
[2019-12-29] MEDS ORDERED: NORMAL SALINE 100 ML with INSULIN REGULAR, HUMAN 100 UNIT IV PRN ×4 (13:49→15:24)
--- NOTE | 2019-12-29 14:26 | RADIOLOGY REPORT (SQ) ---
EXAM DESCRIPTION: CHEST SINGLE VIEW IMAGES COMPLETED DATE/TIME: 12/29/2019 2:10 pm REASON FOR STUDY: dka. leukocytosis COMPARISON: AP view of the chest from 04/26/2019. EXAM PARAMETERS: NUMBER OF VIEWS: One view. TECHNIQUE: An AP view of the chest was obtained. RADIATION DOSE: NA LIMITATIONS: None. FINDINGS: LUNGS AND PLEURA: No consolidation, pleural effusion or pneumothorax. MEDIASTINUM AND HILAR STRUCTURES: No mediastinal or hilar contour abnormality. HEART AND VASCULAR STRUCTURES: The cardiac silhouette and pulmonary vasculature are within normal fernandes its. BONES: No acute findings. HARDWARE: None. OTHER: No other finding. IMPRESSION: No acute cardiopulmonary process. TECHNICAL DOCUMENTATION: JOB ID: [id number] 2010 [employer]- All Rights Reserved Reading location - IP/workstation name: [email or web address]
[2019-12-29] MEDS ORDERED: NORMAL SALINE 1000 ML 1,000 ML with POTASSIUM CHLORIDE 20 MEQ IV PRN ×2 (15:14)
[2019-12-29] MEDS ORDERED: DEXTROSE 40% GEL 15 GM TUBE PO PRN ×2 (15:14)
[2019-12-29] MEDS ORDERED: DEXTROSE 50%-WATER 25 GM/50 ML DISP.SYRIN IV PRN ×2 (15:14)
[2019-12-29] MEDS ORDERED: GLUCAGON,HUMAN RECOMB 1 MG INJ SUBCUT PRN (15:14)
[2019-12-29] MEDS ORDERED: ONDANSETRON HCL INJ/PF 4 MG/2 ML SDV IV PRN (15:21)
[2019-12-29] MEDS ORDERED: METOCLOPRAMIDE HCL INJ/PF 10 MG/2 ML SDV IV PRN (15:22)
[2019-12-29] MEDS ORDERED: POTASSI CL 20 MEQ/NS 1L 1000 ML IV PRN (15:24)
[2019-12-29] MEDS ORDERED: DIAZEPAM INJ 10 MG/2 ML DISP.SYRIN IV PRN (15:26)
[2019-12-29] MEDS ORDERED: ACETAMINOPHEN 325 MG TABLET PO PRN (15:29)
--- NOTE | 2019-12-29 15:53 | PDOC H&P ---
History of Present Illness Admission Date/PCP: 12/29/19 14:13 LEEANN BARAHONA Patient complains of: Nausea vomiting History of Present Illness: GIORGI JAEGER is a 49 year old female with a history of type 2 diabetes mellitus, hypertension, diabetic neuropathy, CAD, anxiety, and peripheral vascular disease S/p right AKA, who presents to the hospital with complaints of nausea and vomiting for the past 3 days. Her symptoms began after eating a piece of pork chops on Wednesday after which she felt that the food got stuck in her throat and we had to regurgitate it out. Since then she has been having multiple bouts of nausea vomiting every day and has been unable to keep much of anything down. Her vomiting seems to be only present upon food intake and actua lly self-induced because the food gets stuck in her chest when she eats. Otherwise she does not feel nauseous. Took her insulin last on Wednesday and has not been taking it because she has not been able to eat. She states that she is not able to get any food past her chest. Prior to this incident, she states she has been eating adequately at home. Past Medical History Cardiac Medical History: Reports: Coronary Artery Disease, Myocardial Infarction - all per emr, Hypertension Pulmonary Medical History: Neurological Medical History: Reports: Migraine - per emr Endocrine Medical History: Reports: Diabetes Mellitus Type 2 - per emr confirmed BF on insulin usually compliant GI Medical History: Reports: Gastroesophageal Reflux Disease - per emr Musculoskeltal Medical History: Reports: Arthritis - per emr "OSTEO" not differientated per ok Psychiatric Medical History: Denies: Depression Hematology: Past Surgical History Past Surgical History: Reports: Section - X3, Cholecystectomy, Hysterectomy, Orthopedic Surgery - R FOOT, Other - couldn't confirm above (+)s per emr 2/ pt mental status Social History Smoking Status: Current Every Day Smoker Electronic Cigarette use?: No Frequency of Alcohol Use: None - Unknown Hx Recreational Drug Use: No Hx Prescription Drug Abuse: No - Advance Directive Resuscitation Status: Intubate only Family History Family History: DM, Hypertension Parental Family History Reviewed: Yes Children Family History Reviewed: Unknown Sibling(s) Family History Reviewed.: Unknown Medication/Allergy Home Medications: Apixaban [Eliquis 5 mg Tablet] 5 mg PO BID 11/17/19 Cyclobenzaprine HCl [Flexeril 10 mg Tablet] 10 mg PO BID 11/17/19 Diazepam [Valium 5 mg Tablet] 5 mg PO DAILYP PRN 11/17/19 Loratadine [Claritin 10 mg Tablet] 10 mg PO DAILY 11/17/19 Losartan Potassium [Cozaar 50 mg Tablet] 50 mg PO DAILY 11/17/19 Oxybutynin Chloride [Ditropan 5 mg Tablet] 5 mg PO DAILY 11/17/19 Oxycodone HCl/Acetaminophen [Percocet 10-325 mg Tablet] 1 each PO TIDP PRN 11/17/19 Pantoprazole Sodium [Protonix] 40 mg PO QHS 11/17/19 Promethazine HCl [Phenergan 25 mg Tablet] 25 mg PO BID 11/17/19 Trazodone HCl 50 mg PO QHS 11/17/19 Zolpidem Tartrate [Ambien 5 mg Tablet] 5 mg PO QHS 11/17/19 Ciprofloxacin HCl [Cipro 500 mg Tablet] 500 mg PO Q12 #14 tablet 11/18/19 Metformin HCl [Glucophage 500 mg Tablet] 500 mg PO BIDACBS tablet 11/18/19 Allergies/Adverse Reactions: aspirin [Aspirin] Allergy (Intermediate, Verified 12/29/19 10:43) Feels hot & itchy meperidine HCl [From Demerol] Allergy (Intermediate, Verified 12/29/19 10:43) Get very hot tramadol [Tramadol] Allergy (Intermediate, Verified 12/29/19 10:43) Feel hot & itchy Review of Systems Constitutional: ABSENT: chills Eyes: ABSENT: visual disturbances Nose, Mouth, and Throat: ABSENT: headache(s) Cardiovascular: PRESENT: chest pain - Since vomiting. Occurs upon vomiting. ABSENT: orthropnea Respiratory: ABSENT: cough, dyspnea Gastrointestinal: PRESENT: abdominal pain - Epigastric, vomiting. ABSENT: diarrhea, hematemesis, hematochezia, nausea Genitourinary: PRESENT: dysuria. ABSENT: hematuria Musculoskeletal: ABSENT: back pain Integumentary: ABSENT: diaphoresis Neurological: ABSENT: confusion Endocrine: PRESENT: polyuria. ABSENT: polydipsia Hematologic/Lymphatic: ABSENT: lymphadenopathy Allergic/Immunologic: ABSENT: seasonal rhinorrhea Physical Exam Vital Signs: Temp Pulse Resp BP Pulse Ox 98.6 F 125 H 18 153/97 H 97 12/29/19 09:47 12/29/19 09:47 12/29/19 09:47 12/29/19 09:47 12/29/19 09:47 Intake & Output 12/28/19 12/29/19 12/30/19 06:59 06:59 06:59 Intake Total 2049 Balance 2049 Weight 42.184 kg General appearance: PRESENT: no acute distress, cooperative Head exam: PRESENT: normocephalic Neck exam: ABSENT: JVD Respiratory exam: PRESENT: clear to auscultation junior, symmetrical, unlabored. ABSENT: tachypnea, wheezes Cardiovascular exam: PRESENT: +S1, +S2, tachycardia. ABSENT: irregular rhythm GI/Abdominal exam: PRESENT: soft, tenderness. ABSENT: distended, firm, guarding, rebound, rigid Extremities exam: PRESENT: other - Right AKA. ABSENT: pedal edema Neurological exam: PRESENT: alert, awake, oriented to person, oriented to place, oriented to time, oriented to situation Psychiatric exam: ABSENT: agitated, anxious Focused psych exam: ABSENT: pressured speech Skin exam: ABSENT: jaundice Results Laboratory Results: 12/29/19 10:45 12/29/19 10:45 12/29/19 12/29/19 12/29/19 10:45 10:45 11:00 WBC 21.7 H RBC 4.58 Hgb 12.9 Hct 39.8 MCV 87 MCH 28.1 MCHC 32.4 RDW 14.7 H Plt Count 406 Seg Neutrophils % Not Reportable VBG pH VBG pCO2 VBG HCO3 VBG Base Excess Sodium 141.0 Potassium 4.3 Chloride 100 Carbon Dioxide 14 L Anion Gap 27 H BUN 21 H Creatinine 0.86 Est GFR ( Amer) > 60 Glucose 354 H Calcium 9.9 Total Bilirubin 0.5 AST 17 Alkaline Phosphatase 100 Total Protein 8.4 H Albumin 4.8 Lipase 17.5 L Urine Color YELLOW Urine Appearance CLOUDY Urine pH 6.0 Ur Specific Eek 1.018 Urine Protein >=500 H Urine Glucose (UA) >=500 H Urine Ketones 80 H Urine Blood MODERATE H Urine Nitrite NEGATIVE Ur Leukocyte Esterase MODERATE H Urine WBC (Auto) >182 Urine RBC (Auto) 49 12/29/19 12:48 WBC RBC Hgb Hct MCV MCH MCHC RDW Plt Count Seg Neutrophils % VBG pH 7.27 L VBG pCO2 35.2 VBG HCO3 15.6 L VBG Base Excess -10.3 Sodium Potassium Chloride Carbon Dioxide Anion Gap BUN Creatinine Est GFR ( Amer) Glucose Calcium Total Bilirubin AST Alkaline Phosphatase Total Protein Albumin Lipase Urine Color Urine Appearance Urine pH Ur Specific Eek Urine Protein Urine Glucose (UA) Urine Ketones Urine Blood Urine Nitrite Ur Leukocyte Esterase Urine WBC (Auto) Urine RBC (Auto) Impressions: Chest X-Ray 12/29/19 00:00 IMPRESSION: No acute cardiopulmonary process. Abdomen/Pelvis CT 12/29/19 10:43 IMPRESSION: 1. 21 mm aneurysm of the abdominal aorta at the bifurcation. 2. No contrast is seen in the left femoral graft. 3. There appears to be a slight thickening of the wall of the urinary bladder. Correlate for cystitis. Assessment and Plan - Diagnosis (1) DKA (diabetic ketoacidoses) Qualifiers: Diabetes mellitus type: due to underlying condition Diabetes mellitus complication detail: without coma Qualified Code(s): E08.10 - Diabetes mellitus due to underlying condition with ketoacidosis without coma Is this a current diagnosis for this admission?: Yes Plan: Anion gap 27 on admission, VBG shows pH of 7.27, urinalysis shows ketosis. DKA is likely secondary to not taking her insulin as she was not eating. DKA protocol initiated. Start insulin drip. Has received IV fluid boluses in the ER. We will put patient on normal saline infusion with potassium chloride supplements at 200 cc/h. Transition to D5 solution was BG less than 250. Frequent BMPs, Accu-Cheks every 1 hour. (2) Esophageal dysphagia Is this a current diagnosis for this admission?: Yes Plan: Patient is vomiting is secondary to severe esophageal dysphagia. Seems to have started 3 days ago when patient was eating pork chops. Since then, food has not been able to proceed down her chest without her having to regurgitate it. We will keep her n.p.o. I have ordered STAT upper GI series which reveals a large bolus of food stuck within her esophagus. Will consult surgery for an upper endoscopy to help extract this. (3) UTI (urinary tract infection) Qualifiers: Urinary tract infection type: acute cystitis Hematuria presence: with hematuria Qualified Code(s): N30.01 - Acute cystitis with hematuria Is this a current diagnosis for this admission?: Yes Plan: Continue ceftriaxone. Check urine cultures. Blood cultures. (4) Diabetes mellitus type 2 in nonobese Is this a current diagnosis for this admission?: Yes Plan: States that she takes Humalog 4 units before meals and Lantus 17 units at dinner. We will keep this on hold while she is on the insulin drip. Check hemoglobin A1c in the morning. Complicated by diabetic neuropathy. Pain control as needed. (5) Abdominal aortic aneurysm Qualifiers: Presence of rupture: without rupture Qualified Code(s): I71.4 - Abdominal aortic aneurysm, without rupture Is this a current diagnosis for this admission?: Yes Plan: Incidentally noted measuring 21 mm. No intervention needed. Outpatient follow- up with PCP. (6) PVD (peripheral vascular disease) Is this a current diagnosis for this admission?: Yes Plan: History of right AKA. Has a right femoral graft. Awaiting medication reconciliation to resume patient's meds. (7) Tobacco dependence due to cigarettes Is this a current diagnosis for this admission?: Yes Plan: Counseled on smoking cessation benefits. Nicotine patch offered. - Time Time Spent with patient: 35 or more minutes
--- NOTE | 2019-12-29 16:06 | RADIOLOGY REPORT (SQ) ---
EXAM DESCRIPTION: BARIUM SWALLOW ESOPHAGUS IMAGES COMPLETED DATE/TIME: 12/29/2019 3:46 pm REASON FOR STUDY: Upper GI series. Food gets stuck in throat. COMPARISON: CT of the abdomen and pelvis with 12/29/2019. TECHNIQUE: Under fluoroscopic guidance, patient ingested water soluble contrast. Fluoroscopic spot i mages and routine radiographic images acquired and stored on PACS. LIMITATIONS: None. FLUOROSCOPY TIME: FT: 52 seconds. 9 images saved to PACS. FINDINGS: NEUROMUSCULAR COORDINATION OF SWALLOW: Normal. No aspiration. ESOPHAGEAL MOTILITY: Esophageal motility impeded by a large filling defect within the mid esophagus, presumably a retained food bolus. This filling defect is partially obstructing of the esophagus alth ough liquid contrast can be seen reaching the stomach. ESOPHAGEAL MUCOSA: Mild mucosal thickening identified in the distal esophagus just proximal to the GE junction. Mucosal lesions cannot be clearly identified due to the type and small amount of contrast used. GASTRO-ESOPHAGEAL JUNCTION: There is a small sliding hiatal hernia present. Gastroesophageal reflux was not seen. NON-GI TRACT STRUCTURES: No significant finding. OTHER: Moderately distended fluid-filled stomach which is incompletely assessed due to type and small amount of contrast used. Recommend endoscopy for further evaluation. IMPRESSION: 1. LARGE INTRALUMINAL FILLING DEFECT WITHIN THE MID ESOPHAGUS, PRESUMED TO BE A RETAINE D FOOD BOLUS, IS PARTIALLY OBSTRUCTING THE ESOPHAGUS ALTHOUGH LIQUID CONTRAST CAN REACH THE STOMACH. 2. MUCOSAL THICKENING OF THE DISTAL ESOPHAGUS AT THE GE JUNCTION. 3. MODERATELY DISTENDED FLUID-FILLED STOMACH, PROBABLY RELATED TO GASTROPARESIS. ENDOSCOPY IS RECOMMENDED FOR FURTHER EVALUATION. COMMENT: FINDINGS WERE DISCUSSED WITH DR. LE ON 12/29/2019 AT 1545 HOURS. Quality ID [id number]: Final reports for procedures using fluoroscopy that document radiation exposure cynthia cece, or exposure time and number of fluorographic images (if radiation exposure indices are not avail able) TECHNICAL DOCUMENTATION: JOB ID: [id number] 2010 [employer]- All Rights Reserved Reading location - IP/workstation name: [email or web address] [id number]
[2019-12-29] MEDS ORDERED: INSULIN REG, HUMAN 100 UNIT/ML 3 ML VIAL (PYX) ONE (16:22)
[2019-12-29 17:23] LABS: ANION GAP 19 (5-19); BLOOD UREA NITROGEN 19 mg/dL (7-20); CARBON DIOXIDE 15 mmol/L (22-30); CHLORIDE 109 mmol/L (98-107); GLUCOSE 287 mg/dL (75-110); POTASSIUM 4.1 mmol/L (3.6-5.0)
--- NOTE | 2019-12-29 17:23 | PDOC CONSULTATION ---
Consultation Consult Date: 12/29/19 Attending physician:: CHRIS LE Provider Consulted: SHAYY MARTINEZ Consult reason:: Food bolus lodged in the esophagus History of Present Illness Admission Date/PCP: 12/29/19 14:13 LEEANN BARAHONA History of Present Illness: GIORGI JAEGER is a 49 year old female Presents to the emergency department via ground rescue complaining of difficulty swallowing, decreased p.o. intake, lethargy and weakness. She has multiple chronic comorbidities and reports that she was chewing a pork chop and could not get it all down to 3 days ago. In the emergency department she had an esophageal swallow study which showed a near obstruction of the mid esophagus due to retained food bolus. Surgery was consulted and she was advised to un dergo EGD with food bolus extraction. Of note patient is septic with a leukocytosis of 22,000, metabolic acidosis which is acute and DKA with blood sugar 350+. Patient reports she has a history of esophageal problems, erosions specifically but denies stricture. She denies esophageal malignancy. She states 8 years ago she underwent operative gastrostomy for prolonged period of n.p.o. status to allow her esophagus to heal. We do not have those records; the procedure was performed at the [facility]. When she recovered, many years ago, she has been able to take p.o. intake without difficulty. Past Medical History Cardiac Medical History: Reports: Coronary Artery Disease, Myocardial Infarction - all per emr, Hypertension Pulmonary Medical History: Neurological Medical History: Reports: Migraine - per emr Endocrine Medical History: Reports: Diabetes Mellitus Type 2 - per emr confirmed BF on insulin usually compliant GI Medical History: Reports: Gastroesophageal Reflux Disease - per emr Musculoskeltal Medical History: Reports: Arthritis - per emr "OSTEO" not differientated per ct Psychiatric Medical History: Denies: Depression Hematology: Past Surgical History Past Surgical History: Operative gastrostomy tube; aortobifemoral bypass; PTFE bypass left lower extremity Past Surgical History: Reports: Section - X3, Cholecystectomy, Hysterectomy, Orthopedic Surgery - R FOOT, Other - couldn't confirm above (+)s per emr 2/2 pt mental status Social History Smoking Status: Current Every Day Smoker Electronic Cigarette use?: No Frequency of Alcohol Use: None - Unknown Hx Recreational Drug Use: No Hx Prescription Drug Abuse: No - Advance Directive Resuscitation Status: Intubate only Family History Family History: None, DM, Hypertension Parental Family History Reviewed: No Children Family History Reviewed: No Sibling(s) Family History Reviewed.: No Medication/Allergy Home Medications: Apixaban [Eliquis 5 mg Tablet] 5 mg PO BID 11/17/19 Cyclobenzaprine HCl [Flexeril 10 mg Tablet] 10 mg PO BID 11/17/19 Diazepam [Valium 5 mg Tablet] 5 mg PO DAILYP PRN 11/17/19 Loratadine [Claritin 10 mg Tablet] 10 mg PO DAILY 11/17/19 Losartan Potassium [Cozaar 50 mg Tablet] 50 mg PO DAILY 11/17/19 Oxybutynin Chloride [Ditropan 5 mg Tablet] 5 mg PO DAILY 11/17/19 Oxycodone HCl/Acetaminophen [Percocet 10-325 mg Tablet] 1 each PO TIDP PRN 11/17/19 Pantoprazole Sodium [Protonix] 40 mg PO QHS 11/17/19 Promethazine HCl [Phenergan 25 mg Tablet] 25 mg PO BID 11/17/19 Trazodone HCl 50 mg PO QHS 11/17/19 Zolpidem Tartrate [Ambien 5 mg Tablet] 5 mg PO QHS 11/17/19 Ciprofloxacin HCl [Cipro 500 mg Tablet] 500 mg PO Q12 #14 tablet 11/18/19 Metformin HCl [Glucophage 500 mg Tablet] 500 mg PO BIDACBS tablet 11/18/19 Allergies/Adverse Reactions: aspirin [Aspirin] Allergy (Intermediate, Verified 12/29/19 10:43) Feels hot & itchy meperidine HCl [From Demerol] Allergy (Intermediate, Verified 12/29/19 10:43) Get very hot tramadol [Tramadol] Allergy (Intermediate, Verified 12/29/19 10:43) Feel hot & itchy Review of Systems Constitutional: PRESENT: as per HPI Eyes: PRESENT: other - Patient has a disconjugate gaze. ABSENT: visual disturbances Gastrointestinal: PRESENT: dysphagia, heartburn Neurological: PRESENT: other - Patient has a right AKA nonambulator Physical Exam Vital Signs: Temp Pulse Resp BP Pulse Ox 98.6 F 125 H 18 153/97 H 97 12/29/19 09:47 12/29/19 09:47 12/29/19 09:47 12/29/19 09:47 12/29/19 09:47 Intake & Output 12/28/19 12/29/19 12/30/19 06:59 06:59 06:59 Intake Total 2049 Balance 2049 Weight 42.184 kg General appearance: PRESENT: mild distress, other - Anxious Eye exam: PRESENT: other - Disconjugate gaze Mouth exam: PRESENT: dry mucosa Neck exam: PRESENT: full ROM Respiratory exam: PRESENT: rhonchi Cardiovascular exam: PRESENT: RRR Pulses: PRESENT: normal carotid pulses GI/Abdominal exam: PRESENT: other - Multiple scars consistent with previous surgery no peritoneal signs no rigidity Rectal exam: PRESENT: deferred Musculoskeletal exam: PRESENT: other - Multiple scars left lower extremity consistent with a previous peripheral artery bypass; groin scars; right [id number] amputation with healed stump Neurological exam: PRESENT: oriented to person, oriented to place, oriented to time, oriented to situation Psychiatric exam: PRESENT: anxious Results Laboratory Results: 12/29/19 10:45 12/29/19 12/29/19 12/29/19 10:45 10:45 11:00 WBC 21.7 H RBC 4.58 Hgb 12.9 Hct 39.8 MCV 87 MCH 28.1 MCHC 32.4 RDW 14.7 H Plt Count 406 Seg Neutrophils % Not Reportable VBG pH VBG pCO2 VBG HCO3 VBG Base Excess Sodium 141.0 Potassium 4.3 Chloride 100 Carbon Dioxide 14 L Anion Gap 27 H BUN 21 H Creatinine 0.86 Est GFR ( Amer) > 60 Glucose 354 H Calcium 9.9 Total Bilirubin 0.5 AST 17 Alkaline Phosphatase 100 Total Protein 8.4 H Albumin 4.8 Lipase 17.5 L Urine Color YELLOW Urine Appearance CLOUDY Urine pH 6.0 Ur Specific [place] 1.018 Urine Protein >=500 H Urine Glucose (UA) >=500 H Urine Ketones 80 H Urine Blood MODERATE H Urine Nitrite NEGATIVE Ur Leukocyte Esterase MODERATE H Urine WBC (Auto) >182 Urine RBC (Auto) 49 12/29/19 12:48 WBC RBC Hgb Hct MCV MCH MCHC RDW Plt Count Seg Neutrophils % VBG pH 7.27 L VBG pCO2 35.2 VBG HCO3 15.6 L VBG Base Excess -10.3 Sodium Potassium Chloride Carbon Dioxide Anion Gap BUN Creatinine Est GFR ( Amer) Glucose Calcium Total Bilirubin AST Alkaline Phosphatase Total Protein Albumin Lipase Urine Color Urine Appearance Urine pH Ur Specific [place] Urine Protein Urine Glucose (UA) Urine Ketones Urine Blood Urine Nitrite Ur Leukocyte Esterase Urine WBC (Auto) Urine RBC (Auto) Impressions: Chest X-Ray 12/29/19 00:00 IMPRESSION: No acute cardiopulmonary process. Esophagus X-Ray 12/29/19 00:00 IMPRESSION: 1. LARGE INTRALUMINAL FILLING DEFECT WITHIN THE MID ESOPHAGUS, PRESUMED TO BE A RETAINED FOOD BOLUS, IS PARTIALLY OBSTRUCTING THE ESOPHAGUS ALTHOUGH LIQUID CONTRAST CAN REACH THE STOMACH. 2. MUCOSAL THICKENING OF THE DISTAL ESOPHAGUS AT THE GE JUNCTION. 3. MODERATELY DISTENDED FLUID-FILLED STOMACH, PROBABLY RELATED TO GASTROPARESIS. ENDOSCOPY IS RECOMMENDED FOR FURTHER EVALUATION. Abdomen/Pelvis CT 12/29/19 10:43 IMPRESSION: 1. 21 mm aneurysm of the abdominal aorta at the bifurcation. 2. No contrast is seen in the left femoral graft. 3. There appears to be a slight thickening of the wall of the urinary bladder. Correlate for cystitis. Assessment & Plan - Diagnosis (1) Foreign body in esophagus Qualifiers: Encounter type: initial encounter Qualified Code(s): T18.108A - Unspecified foreign body in esophagus causing other injury, initial encounter Is this a current diagnosis for this admission?: Yes Plan: Impression: 3-day history of retained foreign body of the esophagus likely pork chop in patient with history of esophageal problems, details unclear; apparent history of esophagitis, patient denies stricture, but required n.p.o. status for approximately a year with gastrostomy tube feedings. Patient's condition complicated by multiple comorbidities, including acute sepsis, and metabolic acidosis, and DKA Recommendations: 1. Agree with hospitalist for continued fluid resuscitation, insulin drip, intravenous antibiotics, additional line placement and Ferro catheter insertion 2. With regards to timing of EGD, food bolus extraction, I would suggest preceding sooner rather than later given the prolonged time this fluid bolus has been lodged in her midesophagus. The primary concern being mucosal ischemia, erosion, and even perforation. Naturally risks associated with the EGD, and foreign body extraction include esophageal perforation, particularly with a history of remote esophagitis 3. We will reassess the patient in approximately 1 hour, assess patient's clinical response to medical therapy and decide definitively on timing of EGD. (2) Sepsis Is this a current diagnosis for this admission?: Yes (3) DKA (diabetic ketoacidoses) Qualifiers: Diabetes mellitus type: due to underlying condition Diabetes mellitus complication detail: without coma Qualified Code(s): E08.10 - Diabetes mellitus due to underlying condition with ketoacidosis without coma Is this a current diagnosis for this admission?: Yes (4) Acute kidney injury Is this a current diagnosis for this admission?: Yes (5) PVD (peripheral vascular disease) Is this a current diagnosis for this admission?: Yes (6) Tobacco dependence due to cigarettes Is this a current diagnosis for this admission?: Yes
[2019-12-29] MEDS ORDERED: EPINEPHRINE INJ 1 MG/10 ML DISP.SYRIN ONE (18:45)
[2019-12-29] MEDS ORDERED: LIDOCAINE 2% INJ-PF (20 MG/ML) 10 ML AMPUL ONE (18:51)
[2019-12-29] MEDS ORDERED: FENTANYL CITRATE INJ/PF 100 MCG/2 ML AMPUL ONE (18:51)
[2019-12-29] MEDS ORDERED: MIDAZOLAM 2 MG/2 ML INJ ONE (18:51)
[2019-12-29] MEDS ORDERED: PROPOFOL INJ 200 MG/20 ML VIAL IV ONE (18:51)
[2019-12-29] MEDS ORDERED: ONDANSETRON HCL INJ/PF 4 MG/2 ML SDV ONE (18:53)
[2019-12-29] MEDS ORDERED: DIPHENHYDRAMINE HCL 50 MG/ML VIAL IV PRN (19:25)
[2019-12-29] MEDS ORDERED: PROMETHAZINE HCL INJ 25 MG/1 ML VIAL IV PRN ×2 (19:25)
[2019-12-29] MEDS ORDERED: OXYCODONE-ACETAMINOPHEN 5-325 MG TABLET PO PRN ×2 (19:25)
[2019-12-29] MEDS ORDERED: MEPERIDINE HCL/PF INJ 25 MG/1 ML DISP.SYRIN IV PRN (19:25)
[2019-12-29] MEDS ORDERED: FENTANYL CITRATE INJ/PF 100 MCG/2 ML AMPUL IV PRN ×3 (19:25)
[2019-12-29] MEDS ORDERED: HYDRALAZINE HCL INJ/PF 20 MG/1 ML SDV IV PRN (19:27)
[2019-12-29] MEDS ORDERED: DEXTROSE 5%-NORMAL SALINE 1,000 ML with POTASSIUM CHLORIDE 20 MEQ IV PRN ×2 (19:29)
--- NOTE | 2019-12-29 19:59 | Operative Report ---
Operative Report DATE OF SURGERY: 12/29/19 PREOPERATIVE DIAGNOSIS: 1. Retained food bolus in the midesophagus. 2. Sepsi s. 3. DKA POSTOPERATIVE DIAGNOSIS: Same with severe erosive esophagitis. severe gastritis. Gastric atony OPERATION: 1. Esophagogastroduodenoscopy. 2. Removal of food bolus from distal third of the esophagus. 3. Decompression of gastric contents. 4. Cold forceps biopsy of gastric antrum SURGEON: SHAYY MARTINEZ ANESTHESIA: GA TISSUE REMOVED OR ALTERED: Biopsy of gastric antrum COMPLICATIONS: None ESTIMATED BLOOD LOSS: Scant INTRAOPERATIVE FINDINGS: See below PROCEDURE: Patient was taken to the preop holding area to the main operating room general anesthesia was induced. Ferro catheter was inserted 300 cc of urine, cloudy, drained. Oropharynx was exposed, surgical timeout conducted. The flexible adult upper esophagus scope was advanced to the patient's oropharynx uneventfully into the esophagus uneventfully to the third portion where at approximately 28 cm from the incisor the food bolus was identified. Using combination of Thakur net and multi-kyle forceps, I debulked the food bolus and extracted 95% of it by bringing it out through the patient's oropharynx. This required approximately 4 passes of the esophagoscope. Once the food bolus was clear I was able to pass the scope into the stomach. There was approximately 500 cc of retained fluid. The esophagoscope was removed, and an 18 [place] nasogastric tube was inserted through the oropharynx, and we proceeded to decompress the stomach of approximately 500 cc of gastric fluid. The esophagoscope was reintroduced through the oropharynx down through the esophagus into the stomach and into the first and second portion of the duodenum. There was mild duodenitis. There was no evidence of mechanical gastric outlet obstruction. There was severe gastritis. Multiple photographs were taken, and a cold forceps biopsy was taken of the gastric antrum. Complete evacuation of the stomach was not possible. Therefore we cannot rule out occult lesions in the non-visualized portion of the stomach. The scope was brought back through the GE junction and a good look at the distal esophagus was obtained. There was no evidence of obvious stricture or tumor, but more so circumferential diffuse acute and chronic esophagitis. There was some bleeding likely secondary to the manipulation above. Some areas the mucosa appeared hypertrophied. No formal biopsy was obtained. The scope was withdrawn after decompressing the stomach and the esophagus of air. The patient tolerated procedure well, was extubated, and taken to recovery room in stable condition. Plan: 1. Strict n.p.o. for now 2. May consider clear liquids tomorrow; no solid food for a week 3. Patient may require repeat upper endoscopy, with biopsies in 2 months after allowing the current inflammation to subside 4. Surgery will sign off at this time. Please reconsult surgery if clinically indicated.
[2019-12-29] MEDS: OXYCODONE-ACETAMINOPHEN 5-325 MG TABLET PO PRN (21:08)
[2019-12-29 21:43] LABS: ANION GAP 14 (5-19); BLOOD UREA NITROGEN 18 mg/dL (7-20); CALCIUM 8.9 mg/dL (8.4-10.2); CARBON DIOXIDE 21 mmol/L (22-30); CHLORIDE 110 mmol/L (98-107); GLUCOSE 175 mg/dL (75-110); POTASSIUM 4.2 mmol/L (3.6-5.0)
[2019-12-29] MEDS: ZOLPIDEM TARTRATE 5 MG TABLET PO SCH (21:43)
[2019-12-29] MEDS: QUETIAPINE FUMARATE 25 MG TABLET PO SCH (21:43)
[2019-12-29] MEDS: TRAZODONE HCL 50 MG TABLET PO SCH (21:43)
[2019-12-29] MEDS ORDERED: METOPROLOL TARTRATE PF/INJ 5 MG/5 ML SDV IV PRN (22:41)
--- NOTE | 2019-12-29 23:10 | EKG REPORT ---
SEVERITY:- DEFECTIVE ECG - SINUS OR ECTOPIC ATRIAL TACHYCARDIA PROBABLE LEFT ATRIAL ABNORMALITY LVH WITH SECONDARY REPOLARIZATION ABNORMALITY PROBABLE INFERIOR INFARCT, AGE INDETERMINATE : Confirmed by: Lewis Gant MD 29-Dec-2019 23:09:32
[2019-12-29] MEDS ORDERED: POTASSI CL 20 MEQ/D5NS 1L 20 MEQ/1,000 ML RTUINJ IV ONE (23:24)
[2019-12-29] MEDS ORDERED: POTASSI CL 20 MEQ/50 ML RIDER 20 MEQ/50 ML RTUPB IV ONE (23:37)
[2019-12-30] MEDS: HYDRALAZINE HCL INJ/PF 20 MG/1 ML SDV IV PRN ×2 (03:21→20:08)
[2019-12-30] MEDS: OXYCODONE-ACETAMINOPHEN 5-325 MG TABLET PO PRN ×4 (04:13→22:16)
[2019-12-30 05:14] LABS: ABSOLUTE BASOPHILS # (AUTO) 0.2 10^3/uL (0.0-0.2); ABSOLUTE LYMPHOCYTES (AUTO) 1.4 10^3/uL (0.5-4.7); ABSOLUTE MONOCYTES (AUTO) 0.9 10^3/uL (0.1-1.4); ABSOLUTE NEUT (AUTO) 16.6 10^3/uL (1.7-8.2); BASOPHILS % (AUTO) 0.9 % (0-2); HEMATOCRIT 35.6 % (36.0-47.0); HEMOGLOBIN 11.9 g/dL (12.0-15.5); LYMPHOCYTES % (AUTO) 7.2 % (13-45); MEAN CORPUSCULAR HEMOGLOBIN 28.1 pg (27.0-33.4); MEAN CORPUSCULAR HGB CONC 33.5 g/dL (32.0-36.0); MEAN CORPUSCULAR VOLUME 84 fl (80-97); MONOCYTES % (AUTO) 4.9 % (3-13); PLATELET COUNT 297 10^3/uL (150-450); RED BLOOD COUNT 4.24 10^6/uL (3.72-5.28); RED CELL DISTRIBUTION WIDTH 14.7 % (11.5-14.0); TOTAL CELLS COUNTED % (AUTO) 100 %; WHITE BLOOD COUNT 19.1 10^3/uL (4.0-10.5)
[2019-12-30 05:34] LABS: ANION GAP 11 (5-19); BLOOD UREA NITROGEN 14 mg/dL (7-20); CALCIUM 8.8 mg/dL (8.4-10.2); CARBON DIOXIDE 21 mmol/L (22-30); CHLORIDE 112 mmol/L (98-107); GLUCOSE 135 mg/dL (75-110); POTASSIUM 3.8 mmol/L (3.6-5.0)
[2019-12-30] MEDS ORDERED: LOSARTAN POTASSIUM 50 MG TABLET PO SCH (08:00)
[2019-12-30] MEDS ORDERED: INSULIN GLARGINE,HUM.REC.ANLOG 1,000 UNIT/10 ML VIAL (PYX) SUBCUT ONE ×2 (09:00→09:30)
--- NOTE | 2019-12-30 09:09 | PDOC PROGRESS REPORT ---
Subjective Progress Note for:: 12/30/19 Subjective:: Feels well. Tolerating water and pills. No emesis. Reason For Visit: DKA Physical Exam Vital Signs: Temp Pulse Resp BP Pulse Ox 98.9 F 115 H 16 132/72 H 96 12/30/19 08:00 12/30/19 08:00 12/30/19 08:00 12/30/19 08:00 12/30/19 08:00 Intake & Output 12/29/19 12/30/19 12/31/19 06:59 06:59 06:59 Intake Total 3032 Output Total 1150 Balance 1882 Weight 54.2 kg General appearance: PRESENT: no acute distress, cooperative Respiratory exam: PRESENT: clear to auscultation junior Cardiovascular exam: PRESENT: RRR GI/Abdominal exam: PRESENT: other - Soft, nondistended, nontender to palpation. Results Laboratory Results: 12/30/19 04:54 12/30/19 04:54 12/29/19 12/29/19 12/29/19 10:45 10:45 11:00 WBC 21.7 H RBC 4.58 Hgb 12.9 Hct 39.8 MCV 87 MCH 28.1 MCHC 32.4 RDW 14.7 H Plt Count 406 Seg Neutrophils % Not Reportable VBG pH VBG pCO2 VBG HCO3 VBG Base Excess Sodium 141.0 Potassium 4.3 Chloride 100 Carbon Dioxide 14 L Anion Gap 27 H BUN 21 H Creatinine 0.86 Est GFR ( Amer) > 60 Glucose 354 H Lactic Acid Calcium 9.9 Total Bilirubin 0.5 AST 17 Alkaline Phosphatase 100 Total Protein 8.4 H Albumin 4.8 Lipase 17.5 L Urine Color YELLOW Urine Appearance CLOUDY Urine pH 6.0 Ur Specific [place] 1.018 Urine Protein >=500 H Urine Glucose (UA) >=500 H Urine Ketones 80 H Urine Blood MODERATE H Urine Nitrite NEGATIVE Ur Leukocyte Esterase MODERATE H Urine WBC (Auto) >182 Urine RBC (Auto) 49 12/29/19 12/29/19 12/29/19 12:48 16:43 16:43 WBC RBC Hgb Hct MCV MCH MCHC RDW Plt Count Seg Neutrophils % VBG pH 7.27 L VBG pCO2 35.2 VBG HCO3 15.6 L VBG Base Excess -10.3 Sodium 142.8 Potassium 4.1 Chloride 109 H Carbon Dioxide 15 L Anion Gap 19 BUN 19 Creatinine 0.78 Est GFR ( Amer) > 60 Glucose 287 H Lactic Acid 1.3 Calcium 9.0 Total Bilirubin AST Alkaline Phosphatase Total Protein Albumin Lipase Urine Color Urine Appearance Urine pH Ur Specific [place] Urine Protein Urine Glucose (UA) Urine Ketones Urine Blood Urine Nitrite Ur Leukocyte Esterase Urine WBC (Auto) Urine RBC (Auto) 12/29/19 12/30/19 12/30/19 20:58 04:54 04:54 WBC 19.1 H RBC 4.24 Hgb 11.9 L Hct 35.6 L MCV 84 MCH 28.1 MCHC 33.5 RDW 14.7 H Plt Count 297 Seg Neutrophils % 87.0 H VBG pH VBG pCO2 VBG HCO3 VBG Base Excess Sodium 144.8 143.6 Potassium 4.2 3.8 Chloride 110 H 112 H Carbon Dioxide 21 L 21 L Anion Gap 14 11 BUN 18 14 Creatinine 0.72 0.64 Est GFR ( Amer) > 60 > 60 Glucose 175 H 135 H Lactic Acid Calcium 8.9 8.8 Total Bilirubin AST Alkaline Phosphatase Total Protein Albumin Lipase Urine Color Urine Appearance Urine pH Ur Specific [place] Urine Protein Urine Glucose (UA) Urine Ketones Urine Blood Urine Nitrite Ur Leukocyte Esterase Urine WBC (Auto) Urine RBC (Auto) Impressions: Chest X-Ray 12/29/19 00:00 IMPRESSION: No acute cardiopulmonary process. Esophagus X-Ray 12/29/19 00:00 IMPRESSION: 1. LARGE INTRALUMINAL FILLING DEFECT WITHIN THE MID ESOPHAGUS, PRESUMED TO BE A RETAINED FOOD BOLUS, IS PARTIALLY OBSTRUCTING THE ESOPHAGUS ALTHOUGH LIQUID CONTRAST CAN REACH THE STOMACH. 2. MUCOSAL THICKENING OF THE DISTAL ESOPHAGUS AT THE GE JUNCTION. 3. MODERATELY DISTENDED FLUID-FILLED STOMACH, PROBABLY RELATED TO GASTROPARESIS. ENDOSCOPY IS RECOMMENDED FOR FURTHER EVALUATION. Abdomen/Pelvis CT 12/29/19 10:43 IMPRESSION: 1. 21 mm aneurysm of the abdominal aorta at the bifurcation. 2. No contrast is seen in the left femoral graft. 3. There appears to be a slight thickening of the wall of the urinary bladder. Correlate for cystitis. Assessment & Plan - Diagnosis (1) Foreign body in esophagus Qualifiers: Encounter type: initial encounter Qualified Code(s): T18.108A - Unspecified foreign body in esophagus causing other injury, initial encounter Plan: Status post removal. Patient looks good. May start clear liquids. Recommend patient staying on clear liquids for a week. When patient is discharged, follow-up at [place] [facility] in a week. Surgical service signing off. Please call us for any problems.
[2019-12-30] MEDS: CEFTRIAXONE 1 GM/D5W RTU 1 GM/50 ML RTUPB IV SCH (09:47)
[2019-12-30] MEDS: SUCRALFATE 1 GM TABLET PO SCH ×4 (09:47→22:16)
[2019-12-30] MEDS: NICOTINE 14 MG/24 HR PATCH.TD24 TD SCH (09:49)
[2019-12-30] MEDS: PANTOPRAZOLE SODIUM 40 MG VIAL IV SCH ×2 (09:49→17:45)
[2019-12-30] MEDS ORDERED: ENALAPRILAT DIHYDRATE INJ/PF 2.5 MG/2 ML SDV IV SCH (10:00)
[2019-12-30] MEDS ORDERED: PANTOPRAZOLE SODIUM 40 MG VIAL IV SCH (10:00)
[2019-12-30] MEDS ORDERED: ENOXAPARIN SODIUM INJ 40 MG/0.4 ML DISP.SYRIN SUBCUT SCH (10:00)
[2019-12-30] MEDS ORDERED: MAG HYDROX/AL HYDROX/SIMETH SUSP 30 ML UDCUP PO PRN (13:37)
--- NOTE | 2019-12-30 13:52 | PDOC PROGRESS REPORT ---
Subjective Progress Note for:: 12/30/19 Subjective:: Patient feels better today. Still gets some occasional nausea but states that she is now able to swallow comfortably and swallow down her pills. She has some burning sensation in her throat still well following this endoscopic extraction. Admits to history of gastroparesis but is uncertain if she has ever actually had gastric emptying study done. Reason For Visit: DKA Physical Exam Vital Signs: Temp Pulse Resp BP Pulse Ox 98.7 F 112 H 16 126/74 H 97 12/30/19 11:20 12/30/19 11:20 12/30/19 11:20 12/30/19 11:20 12/30/19 11:20 Intake & Output 12/29/19 12/30/19 12/31/19 06:59 06:59 06:59 Intake Total 3032 Output Total 1150 Balance 1882 Weight 54.2 kg General appearance: PRESENT: no acute distress, cooperative Neck exam: ABSENT: JVD Respiratory exam: PRESENT: clear to auscultation junior, symmetrical, unlabored. ABSENT: tachypnea, wheezes Cardiovascular exam: PRESENT: +S1, +S2, tachycardia. ABSENT: irregular rhythm GI/Abdominal exam: PRESENT: soft. ABSENT: rebound, rigid, tenderness Neurological exam: PRESENT: alert, awake, oriented to person, oriented to place, oriented to time Results Laboratory Results: 12/30/19 04:54 12/30/19 04:54 12/29/19 12/29/19 12/29/19 16:43 16:43 20:58 WBC RBC Hgb Hct MCV MCH MCHC RDW Plt Count Seg Neutrophils % Sodium 142.8 144.8 Potassium 4.1 4.2 Chloride 109 H 110 H Carbon Dioxide 15 L 21 L Anion Gap 19 14 BUN 19 18 Creatinine 0.78 0.72 Est GFR ( Amer) > 60 > 60 Glucose 287 H 175 H Lactic Acid 1.3 Calcium 9.0 8.9 12/30/19 12/30/19 04:54 04:54 WBC 19.1 H RBC 4.24 Hgb 11.9 L Hct 35.6 L MCV 84 MCH 28.1 MCHC 33.5 RDW 14.7 H Plt Count 297 Seg Neutrophils % 87.0 H Sodium 143.6 Potassium 3.8 Chloride 112 H Carbon Dioxide 21 L Anion Gap 11 BUN 14 Creatinine 0.64 Est GFR ( Amer) > 60 Glucose 135 H Lactic Acid Calcium 8.8 Impressions: Chest X-Ray 12/29/19 00:00 IMPRESSION: No acute cardiopulmonary process. Esophagus X-Ray 12/29/19 00:00 IMPRESSION: 1. LARGE INTRALUMINAL FILLING DEFECT WITHIN THE MID ESOPHAGUS, PRESUMED TO BE A RETAINED FOOD BOLUS, IS PARTIALLY OBSTRUCTING THE ESOPHAGUS ALTHOUGH LIQUID CONTRAST CAN REACH THE STOMACH. 2. MUCOSAL THICKENING OF THE DISTAL ESOPHAGUS AT THE GE JUNCTION. 3. MODERATELY DISTENDED FLUID-FILLED STOMACH, PROBABLY RELATED TO GASTROPAR ESIS. ENDOSCOPY IS RECOMMENDED FOR FURTHER EVALUATION. Abdomen/Pelvis CT 12/29/19 10:43 IMPRESSION: 1. 21 mm aneurysm of the abdominal aorta at the bifurcation. 2. No contrast is seen in the left femoral graft. 3. There appears to be a slight thickening of the wall of the urinary bladder. Correlate for cystitis. Assessment and Plan - Diagnosis (1) DKA (diabetic ketoacidoses) Qualifiers: Diabetes mellitus type: due to underlying condition Diabetes mellitus co mplication detail: without coma Qualified Code(s): E08.10 - Diabetes mellitus due to underlying condition with ketoacidosis without coma Is this a current diagnosis for this admission?: Yes Plan: I have reviewed labs this morning including BMP and anion gap has closed bicarb is 21 now indicating DKA has resolved at this point so I discontinued patient insulin drip this morning. Overlap bridge was done with Lantus 10 units. Discontinue IV fluids. (2) Esophageal obstruction due to food impaction Is this a current diagnosis for this admission?: Yes Plan: This was responsible for her vomiting and esophageal dysphagia. Patient un derwent upper endoscopy yesterday with extraction of the food bolus from the distal third of her esophagus. Since then, she has been able to keep down her pills and drink fluids adequately. Surgery recommending patient be on clear liquid diet for 1 week and to follow-up in the [facility] for further evaluation. (3) Diabetes mellitus type 2 in nonobese Is this a current diagnosis for this admission?: Yes Plan: States that she takes Humalog 4 units before meals and Lantus 17 units at dinner. Right now, since patient is on clear liquid diet, I will place patient on Lantus 10 units nightly and sliding scale insulin. Hemoglobin A1c is 7 indicating very good control of her diabetes. Monitor Accu- Cheks. (4) UTI (urinary tract infection) Qualifiers: Urinary tract infection type: acute cystitis Hematuria presence: with hematuria Qualified Code(s): N30.01 - Acute cystitis with hematuria Is this a current diagnosis for this admission?: Yes Plan: Continue ceftriaxone. Urine and blood cultures are pending (5) Esophagitis with gastritis Is this a current diagnosis for this admission?: Yes Plan: EGD noted that patient has severe erosive esophagitis, severe gastritis and gastric atony. Biopsies were taken from the stomach. Placed patient on Protonix twice daily as well as Carafate. Maalox as needed for heartburn. She will need to have a repeat endoscopy in 2 months as per surgery for reevaluation. (6) Abdominal aortic aneurysm Qualifiers: Presence of rupture: without rupture Qualified Code(s): I71.4 - Abdominal aortic aneurysm, without rupture Is this a current diagnosis for this admission?: Yes Plan: Incidentally noted measuring 21 mm. No intervention needed. Outpatient follow- up with PCP. (7) PVD (peripheral vascular disease) Is this a current diagnosis for this admission?: Yes Plan: History of right AKA. Has a right femoral graft. Continue home meds. (8) Tobacco dependence due to cigarettes Is this a current diagnosis for this admission?: Yes Plan: Counseled on smoking cessation benefits. Nicotine patch offered. - Time Time Spent with patient: 15-24 minutes
[2019-12-30] MEDS ORDERED: PROMETHAZINE HCL INJ 25 MG/1 ML VIAL ONE (14:05)
[2019-12-30] MEDS: PROMETHAZINE HCL INJ 25 MG/1 ML VIAL IV PRN ×3 (14:10→22:15)
--- NOTE | 2019-12-30 16:06 | EKG REPORT ---
SEVERITY:- ABNORMAL ECG - SINUS TACHYCARDIA INFERIOR INFARCT, AGE INDETERMINATE : Confirmed by: Lewis Gant MD 30-Dec-2019 16:06:22
[2019-12-30] MEDS: INSULIN LISPRO 100 UNIT/ML 3 ML VIAL SUBCUT SCH ×2 (16:16→22:17)
[2019-12-30] MEDS: APIXABAN 5 MG TABLET PO SCH (17:45)
[2019-12-30] MEDS: CYCLOBENZAPRINE HCL 10 MG TABLET PO SCH (17:45)
[2019-12-30] MEDS: TRAZODONE HCL 50 MG TABLET PO SCH (22:15)
[2019-12-30] MEDS: QUETIAPINE FUMARATE 25 MG TABLET PO SCH (22:15)
[2019-12-30] MEDS: ZOLPIDEM TARTRATE 5 MG TABLET PO SCH (22:16)
[2019-12-30] MEDS: INSULIN GLARGINE,HUM.REC.ANLOG 1,000 UNIT/10 ML VIAL SUBCUT SCH (22:16)
[2019-12-30] MEDS ORDERED: MORPHINE SULFATE 10 MG/ML INJ ONE (22:31)
[2019-12-30] MEDS: MORPHINE SULFATE 10 MG/ML INJ IV PRN (22:39)
[2019-12-31] MEDS: MORPHINE SULFATE 10 MG/ML INJ IV PRN ×2 (03:20→08:29)
[2019-12-31] MEDS: PROMETHAZINE HCL INJ 25 MG/1 ML VIAL IV PRN (03:20)
[2019-12-31 07:11] LABS: ABSOLUTE BASOPHILS # (AUTO) 0.2 10^3/uL (0.0-0.2); ABSOLUTE MONOCYTES (AUTO) 0.8 10^3/uL (0.1-1.4); ABSOLUTE NEUT (AUTO) 11.7 10^3/uL (1.7-8.2); BASOPHILS % (AUTO) 1.1 % (0-2); HEMATOCRIT 33.7 % (36.0-47.0); HEMOGLOBIN 11.4 g/dL (12.0-15.5); LYMPHOCYTES % (AUTO) 19.3 % (13-45); MEAN CORPUSCULAR HEMOGLOBIN 28.5 pg (27.0-33.4); MEAN CORPUSCULAR VOLUME 84 fl (80-97); MONOCYTES % (AUTO) 4.9 % (3-13); PLATELET COUNT 279 10^3/uL (150-450); RED BLOOD COUNT 4.01 10^6/uL (3.72-5.28); RED CELL DISTRIBUTION WIDTH 15.2 % (11.5-14.0); SEGMENTED NEUTROPHILS % (AUTO) 74.7 % (42-78); TOTAL CELLS COUNTED % (AUTO) 100 %; WHITE BLOOD COUNT 15.6 10^3/uL (4.0-10.5)
[2019-12-31 07:31] LABS: ANION GAP 12 (5-19); BLOOD UREA NITROGEN 16 mg/dL (7-20); CARBON DIOXIDE 22 mmol/L (22-30); CHLORIDE 107 mmol/L (98-107); GLUCOSE 140 mg/dL (75-110); POTASSIUM 3.8 mmol/L (3.6-5.0)
[2019-12-31] MEDS: INSULIN LISPRO 100 UNIT/ML 3 ML VIAL SUBCUT SCH ×5 (08:08→22:14)
[2019-12-31] MEDS: SUCRALFATE 1 GM TABLET PO SCH ×4 (08:29→22:14)
[2019-12-31] MEDS: NICOTINE 14 MG/24 HR PATCH.TD24 TD SCH (08:59)
[2019-12-31] MEDS: APIXABAN 5 MG TABLET PO SCH ×2 (09:06→17:30)
[2019-12-31] MEDS: CEFTRIAXONE 1 GM/D5W RTU 1 GM/50 ML RTUPB IV SCH (09:06)
[2019-12-31] MEDS: PANTOPRAZOLE SODIUM 40 MG TABLET.DR PO SCH ×2 (09:07→17:30)
[2019-12-31] MEDS: LOSARTAN POTASSIUM 50 MG TABLET PO SCH (09:07)
[2019-12-31] MEDS: PROMETHAZINE HCL 25 MG TABLET PO PRN ×2 (09:07→14:52)
[2019-12-31] MEDS: CYCLOBENZAPRINE HCL 10 MG TABLET PO SCH ×2 (09:07→17:30)
[2019-12-31] MEDS: OXYBUTYNIN CHLORIDE 5 MG TABLET PO SCH (09:07)
--- NOTE | 2019-12-31 11:51 | PDOC PROGRESS REPORT ---
Subjective Progress Note for:: 12/31/19 Subjective:: Patient still continues to be nauseous will not trouble keeping down pills. Complains of a lot of pain in her throat as well as in her epigastric region. She also complains of pain in her upper abdomen around the flank regions points to the location of her diaphragms which has been going on since she has been having excessive vomiting at home. Patient also would like to go home but have explained to her that I have to see her being able to keep down her meds before I can feel comfortable with discharging her home. She is willing to try taking anti-emetics prior to taking her Protonix and Carafate and all the tablets that she needs. States that she will try to keep down the food. However she continues to take to see if we can try the IV pain meds for today which she feels helps her. Reason For Visit: DKA Physical Exam Vital Signs: Temp Pulse Resp BP Pulse Ox 98.1 F 106 H 16 114/69 97 12/31/19 07:40 12/31/19 07:40 12/31/19 07:40 12/31/19 07:40 12/31/19 07:40 Intake & Output 12/30/19 12/31/19 01/01/20 06:59 06:59 06:59 Intake Total 3032 2259 50 Output Total 1150 625 Balance 1882 1634 50 Weight 54.2 kg 53 kg General appearance: PRESENT: no acute distress, cooperative Neck exam: ABSENT: JVD Respiratory exam: PRESENT: clear to auscultation junior, symmetrical, unlabored. ABSENT: tachypnea, wheezes Cardiovascular exam: PRESENT: +S1, +S2, tachycardia. ABSENT: irregular rhythm GI/Abdominal exam: PRESENT: normal bowel sounds, soft, tenderness - Epigastrium and flanks and upper abdomen. ABSENT: distended, firm, guarding, rebound, rigid Neurological exam: PRESENT: alert, awake, oriented to person, oriented to place, oriented to time, oriented to situation Results Laboratory Results: 12/31/19 06:32 12/31/19 06:32 12/31/19 12/31/19 06:32 06:32 WBC 15.6 H RBC 4.01 Hgb 11.4 L Hct 33.7 L MCV 84 MCH 28.5 MCHC 34.0 RDW 15.2 H Plt Count 279 Seg Neutrophils % 74.7 Sodium 140.5 Potassium 3.8 Chloride 107 Carbon Dioxide 22 Anion Gap 12 BUN 16 Creatinine 0.86 Est GFR ( Amer) > 60 Glucose 140 H Calcium 9.0 12/29/19 11:00 Clean Catch Midstream Urine Culture - Final Mixed Urogenital Delfina Impressions: Chest X-Ray 12/29/19 00:00 IMPRESSION: No acute cardiopulmonary process. Esophagus X-Ray 12/29/19 00:00 IMPRESSION: 1. LARGE INTRALUMINAL FILLING DEFECT WITHIN THE MID ESOPHAGUS, PRESUMED TO BE A RETAINED FOOD BOLUS, IS PARTIALLY OBSTRUCTING THE ESOPHAGUS ALTHOUGH LIQUID CONTRAST CAN REACH THE STOMACH. 2. MUCOSAL THICKENING OF THE DISTAL ESOPHAGUS AT THE GE JUNCTION. 3. MODERATELY DISTENDED FLUID-FILLED STOMACH, PROBABLY RELATED TO GASTROPARESIS. ENDOSCOPY IS RECOMMENDED FOR FURTHER EVALUATION. Abdomen/Pelvis CT 12/29/19 10:43 IMPRESSION: 1. 21 mm aneurysm of the abdominal aorta at the bifurcation. 2. No contrast is seen in the left femoral graft. 3. There appears to be a slight thickening of the wall of the urinary bladder. Correlate for cystitis. Assessment and Plan - Diagnosis (1) Nausea & vomiting Qualifiers: Vomiting type: bilious vomiting Qualified Code(s): R11.14 - Bilious vomiting Is this a current diagnosis for this admission?: Yes Plan: Patient no longer has the sensation of food getting stuck in her chest but she is still having significant nausea and some vomiting episodes which is limiting her meal intake as well as ability to keep down her oral meds. Main etiologies are has severe erosive esophagitis and severe gastritis as well as her reported history of diabetic gastroparesis. I will check a KUB today Have discussed with patient that we will try oral antiemetics today to see how she will fare at home. PRN Phenergan and standing Reglan before meals and pill s. I have also encouraged patient to continue to take the Protonix and ensure that she swallows her Carafate. Ultimately, patient's severe erosive esophagitis and severe gastritis are going to take some time to heal and may continue to precipitate patient's nausea vomiting symptoms but she has to keep persisting with her treatment plan and try to keep this medications down especially her Protonix and Carafate. (2) Esophageal obstruction due to food impaction Is this a current diagnosis for this admission?: Yes Plan: This was responsible for her esophageal dysphagia. Patient underwent upper endoscopy 12/31/2019 with extraction of the food bolus from the distal third of her esophagus. Surgery recommending patient be on clear liquid diet for 1 week and to follow-up in the [place] [facility] for further evaluation. (3) Diabetes mellitus type 2 in nonobese Is this a current diagnosis for this admission?: Yes Plan: States that she takes Humalog 4 units before meals and Lantus 17 units at dinner. Right now, since patient is on clear liquid diet, I I have placed patient on Lantus 10 units nightly and sliding scale insulin. Hemoglobin A1c is 7 indicating very good control of her diabetes. Monitor Accu- Cheks. (4) UTI (urinary tract infection) Qualifiers: Urinary tract infection type: acute cystitis Hematuria presence: with hematuria Qualified Code(s): N30.01 - Acute cystitis with hematuria Is this a current diagnosis for this admission?: Yes Plan: Continue ceftriaxone. Leukocytosis is trending downwards do believe it may have also been secondary to patient's prolonged esophageal food impaction. (5) Esophagitis with gastritis Is this a current diagnosis for this admission?: Yes Plan: EGD noted that patient has severe erosive esophagitis, severe gastritis and gastric atony. Biopsies were taken from the stomach. Placed patient on Protonix twice daily as well as Carafate. Maalox as needed for heartburn. She will need to have a repeat endoscopy in 2 months as per surgery for reevaluation. (6) Abdominal aortic aneurysm Qualifiers: Presence of rupture: without rupture Qualified Code(s): I71.4 - Abdominal aortic aneurysm, without rupture Is this a current diagnosis for this admission?: Yes Plan: Incidentally noted measuring 21 mm. No intervention needed. Outpatient follow-up with PCP. (7) PVD (peripheral vascular disease) Is this a current diagnosis for this admission?: Yes Plan: History of right AKA. Has a right femoral graft. Continue home meds. (8) Tobacco dependence due to cigarettes Is this a current diagnosis for this admission?: Yes Plan: Counseled on smoking cessation benefits. Nicotine patch offered. (9) DKA (diabetic ketoacidoses) Qualifiers: Diabetes mellitus type: due to underlying condition Diabetes mellitus complication detail: without coma Qualified Code(s): E08.10 - Diabetes mellitus due to underlying condition with ketoacidosis without coma Is this a current diagnosis for this admission?: Yes Plan: Resolved - Time Time Spent with patient: 15-24 minutes
[2019-12-31] MEDS: METOCLOPRAMIDE HCL 10 MG TABLET PO SCH ×3 (11:57→22:14)
[2019-12-31] MEDS: OXYCODONE-ACETAMINOPHEN 5-325 MG TABLET PO PRN ×2 (11:59→18:11)
--- NOTE | 2019-12-31 12:58 | RADIOLOGY REPORT (SQ) ---
EXAM DESCRIPTION: KUB/ABDOMEN (SINGLE VIEW) IMAGES COMPLETED DATE/TIME: 12/31/2019 9:26 am REASON FOR STUDY: persistent nausea and vomiting COMPARISON: CT abdomen and pelvis, 12/29/2019. NUMBER OF VIEWS: One view. TECHNIQUE: Supine radiographic image of the abdomen acquired. LIMITATIONS: None. FINDINGS: BOWEL GAS PATTERN: There is enteric contrast in the proximal colon. No dilated loops of b owel. CALCIFICATIONS: No suspicious calcifications. SOFT TISSUES: No gross mass or suggestion of organomegaly. HARDWARE: Vascular stent in the right iliac artery. Cholecystectomy clips. BONES: No acute fracture. No worrisome bone lesions. OTHER: No other significant finding. IMPRESSION: Enteric contrast in the proximal colon. Nonobstructive bowel gas pattern. TECHNICAL DOCUMENTATION: JOB ID: [id number] 2010 [employer]- All Rights Reserved Reading location - IP/workstation name: [email or web address]
[2019-12-31] MEDS: TRAZODONE HCL 50 MG TABLET PO SCH (22:14)
[2019-12-31] MEDS: QUETIAPINE FUMARATE 25 MG TABLET PO SCH (22:14)
[2019-12-31] MEDS: ZOLPIDEM TARTRATE 5 MG TABLET PO SCH (22:14)
[2019-12-31] MEDS: INSULIN GLARGINE,HUM.REC.ANLOG 1,000 UNIT/10 ML VIAL SUBCUT SCH (22:15)
[2019-12-31] MEDS ORDERED: LIDOCAINE 5% (700 MG) TRANSDERMAL ADH..PATCH TP ONE (23:15)
[2019-12-31] MEDS ORDERED: LIDOCAINE 5% (700 MG) TRANSDERMAL ADH..PATCH ONE (23:27)
--- NOTE | 2019-12-31 23:47 | CDI QUERY ---
CDI Query CDI Review: Per Surgery Consult Notes: Of note patient is septic with a leukocytosis of 22,000, metabolic acidosis which is acute and DKA with blood sugar 350+. Documented in the H&P: Temp Pulse Resp BP Pulse Ox 98.6 F 125 H 18 153/97 H 97 WBC 21.7 Lactic Acid 1.3 Based on your medical judgement, please clarify if you agree with the Surgical Consult: Sepsis present on admission Sepsis ruled out Sepsis resolved Unable to determine Other ROSIE Dang RN Clinical Wrapper Layer Physician Advisor [email or web address] [email or web address]
[2020-01-01 06:24] LABS: ABSOLUTE BASOPHILS # (AUTO) 0.1 10^3/uL (0.0-0.2); ABSOLUTE EOSINOPHILS # (AUTO) 0.1 10^3/uL (0.0-0.6); ABSOLUTE LYMPHOCYTES (AUTO) 3.3 10^3/uL (0.5-4.7); ABSOLUTE MONOCYTES (AUTO) 0.5 10^3/uL (0.1-1.4); ABSOLUTE NEUT (AUTO) 5.6 10^3/uL (1.7-8.2); BASOPHILS % (AUTO) 1.2 % (0-2); EOSINOPHILS % (AUTO) 1.3 % (0-6); HEMATOCRIT 31.8 % (36.0-47.0); HEMOGLOBIN 10.8 g/dL (12.0-15.5); LYMPHOCYTES % (AUTO) 33.8 % (13-45); MEAN CORPUSCULAR HEMOGLOBIN 28.6 pg (27.0-33.4); MEAN CORPUSCULAR HGB CONC 33.9 g/dL (32.0-36.0); MEAN CORPUSCULAR VOLUME 85 fl (80-97); MONOCYTES % (AUTO) 5.3 % (3-13); PLATELET COUNT 267 10^3/uL (150-450); RED BLOOD COUNT 3.76 10^6/uL (3.72-5.28); SEGMENTED NEUTROPHILS % (AUTO) 58.4 % (42-78); TOTAL CELLS COUNTED % (AUTO) 100 %; WHITE BLOOD COUNT 9.6 10^3/uL (4.0-10.5)
[2020-01-01 06:33] LABS: ANION GAP 8 (5-19); BLOOD UREA NITROGEN 24 mg/dL (7-20); CALCIUM 9.3 mg/dL (8.4-10.2); CARBON DIOXIDE 25 mmol/L (22-30); CHLORIDE 106 mmol/L (98-107); GLUCOSE 111 mg/dL (75-110); POTASSIUM 3.4 mmol/L (3.6-5.0)
[2020-01-01] MEDS: OXYCODONE-ACETAMINOPHEN 5-325 MG TABLET PO PRN (07:43)
[2020-01-01] MEDS: SUCRALFATE 1 GM TABLET PO SCH (07:43)
[2020-01-01] MEDS: METOCLOPRAMIDE HCL 10 MG TABLET PO SCH (07:44)
[2020-01-01] MEDS: INSULIN LISPRO 100 UNIT/ML 3 ML VIAL SUBCUT SCH (07:50)
[2020-01-01] MEDS: CYCLOBENZAPRINE HCL 10 MG TABLET PO SCH (10:17)
[2020-01-01] MEDS: APIXABAN 5 MG TABLET PO SCH (10:18)
[2020-01-01] MEDS: OXYBUTYNIN CHLORIDE 5 MG TABLET PO SCH (10:18)
[2020-01-01] MEDS: NICOTINE 14 MG/24 HR PATCH.TD24 TD SCH (10:21)
[2020-01-01] MEDS: LOSARTAN POTASSIUM 50 MG TABLET PO SCH (10:22)
--- NOTE | 2020-01-01 10:26 | PDOC DISCHARGE SUMMARY ---
Impression - Admit/DC Date/PCP Admission Date/Primary Care Provider: 12/29/19 14:13 LEEANN BARAHONA Discharge Date: 01/01/20 - Discharge Diagnosis (1) Esophagitis with gastritis Is this a current diagnosis for this admission?: Yes (2) Nausea & vomiting Is this a current diagnosis for this admission?: Yes (3) Esophageal obstruction due to food impaction Is this a current diagnosis for this admission?: Yes (4) DKA (diabetic ketoacidoses) Is this a current diagnosis for this admission?: Yes (5) Diabetes mellitus type 2 in nonobese Is this a current diagnosis for this admission?: Yes (6) UTI (urinary tract infection) Is this a current diagnosis for this admission?: Yes (7) Abdominal aortic aneurysm Is this a current diagnosis for this admission?: Yes (8) PVD (peripheral vascular disease) Is this a current diagnosis for this admission?: Yes (9) Tobacco dependence due to cigarettes Is this a current diagnosis for this admission?: Yes - Additional Information Resuscitation Status: Do Not Resuscitate Discharge Diet: Clear Liquids Referrals: JORDAN JOYCE MD [ACTIVE STAFF] - LEEANN BARAHONA MD [Primary Care Provider] - Follow up as needed Prescriptions: Sulfamethoxazole/Trimethoprim [Bactrim Ds Tablet] 1 each PO BID 3 Days #6 tablet Sucralfate [Carafate 1 gm Tablet] 1 gm PO ACHS 30 Days Pantoprazole Sodium [Protonix [address] Tablet] 40 mg PO BID@0900,1700 60 Days tablet.dr Metoclopramide HCl [Reglan] 5 mg PO TIDP PRN #30 tablet PRN Reason: Home Medications: Apixaban [Eliquis 5 mg Tablet] 5 mg PO BID 11/17/19 Cyclobenzaprine HCl [Flexeril 10 mg Tablet] 5 mg PO BID 11/17/19 Diazepam [Valium 5 mg Tablet] 5 mg PO HSP PRN 11/17/19 Losartan Potassium [Cozaar 50 mg Tablet] 50 mg PO QAM 11/17/19 Oxybutynin Chloride [Ditropan 5 mg Tablet] 5 mg PO DAILY 11/17/19 Oxycodone HCl/Acetaminophen [Percocet 10-325 mg Tablet] 1 each PO Q8HP PRN 11/17/19 Trazodone HCl 50 mg PO QHS 11/17/19 Methenamine/Sodium Salicylate [Azo Urinary Tract Defense Tab] 1 tab PO DAILY 12/29/19 Quetiapine Fumarate [Seroquel] 50 mg PO QHS 12/29/19 Metoclopramide HCl [Reglan] 5 mg PO TIDP PRN #30 tablet 01/01/20 Pantoprazole Sodium [Protonix [address] Tablet] 40 mg PO BID@0900,1700 60 Days tablet.dr 01/01/20 Promethazine HCl [Phenergan 25 mg Tablet] 25 mg PO Q6HP PRN #24 01/01/20 Sucralfate [Carafate 1 gm Tablet] 1 gm PO ACHS 30 Days 01/01/20 Sulfamethoxazole/Trimethoprim [Bactrim Ds Tablet] 1 each PO BID 3 Days #6 tablet 01/01/20 History of Present Illiness History of Present Illness: GIORGI JAEGER is a 49 year old female with a history of type 2 diabetes mellitus, hypertension, diabetic neuropathy, CAD, anxiety, and peripheral vascular disease S/p right AKA, who presents to the hospital with complaints of nausea and vomiting for the past 3 days. Her symptoms began after eating a piece of pork chops on Wednesday after which she felt that the food got stuck in her throat and we had to regurgitate it out. Since then she has been having multiple bouts of nausea vomiting every day and has been unable to keep much of anything down. Her vomiting seems to be only present upon food intake and actually self-induced because the food gets stuck in her chest when she eats. Otherwise she does not feel nauseous. Took her insulin last on Wednesday and has not been taking it because she has not been able to eat. She states that she is not able to get any food past her chest. Prior to this incident, she states she has been eating adequately at home. Hospital Course Hospital Course: (1) Nausea & vomiting Qualifiers: Vomiting type: bilious vomiting Qualified Code(s): R11.14 - Bilious vomiting Is this a current diagnosis for this admission?: Yes Plan: Patient no longer has the sensation of food getting stuck in her chest but she is still having significant nausea. However, she was able to keep down her meals yesterday and keep down her pills. Main etiologies are has severe erosive esophagitis and severe gastritis as well as her reported history of diabetic gastroparesis. KUB yesterday was unimpressive. Discharged on Protonix and Carafate. Also given prescription for Phenergan and Reglan. She already takes Phenergan at home. Ultimately, patient's severe erosive esophagitis and severe gastritis are going to take some time to heal and may continue to precipitate patient's nausea vomiting symptoms but she has to keep persisting with her treatment plan and try to keep this medications down especially her Protonix and Carafate. (2) Esophageal obstruction due to food impaction Is this a current diagnosis for this admission?: Yes Plan: This was responsible for her esophageal dysphagia. Patient underwent upper endoscopy 12/31/2019 with extraction of the food bolus from the distal third of her esophagus. Surgery recommending patient be on clear liquid diet for 1 week. (3) Diabetes mellitus type 2 in nonobese Is this a current diagnosis for this admission?: Yes Plan: States that she takes Humalog 4 units before meals and Lantus 17 units at dinner. Hemoglobin A1c is 7 indicating very good control of her diabetes. Monitor Accu- Cheks. Recommended to patient upon discharge to use Lantus 10 to 12 units for the next week while she is on clear liquid only diet but can return to her usual insulin regimen once her diet returns back to prior normal. (4) UTI (urinary tract infection) Qualifiers: Urinary tract infection type: acute cystitis Hematuria presence: with hematuria Qualified Code(s): N30.01 - Acute cystitis with hematuria Is this a current diagnosis for this admission?: Yes Plan: Treated with 3 days of ceftriaxone and discharged on 3 more days of Bactrim. Urine culture ended up growing mixed urogenital salena. Leukocytosis trended downwards and normalized. Do believe leukocytosis may have also been secondary to patient's prolonged esophageal food impaction. Patient was never septic. (5) Esophagitis with gastritis Is this a current diagnosis for this admission?: Yes Plan: EGD noted that patient has severe erosive esophagitis, severe gastritis and gastric atony. Biopsies were taken from the stomach and patient has been instructed to follow-up for results of the biopsy. Placed patient on Protonix t wice daily as well as Carafate. She will need to have a repeat endoscopy in 1 to 2 months for reevaluation. Patient states that she has already set up an appointment with Dr. Joyce. (6) Abdominal aortic aneurysm Qualifiers: Presence of rupture: without rupture Qualified Code(s): I71.4 - Abdominal aortic aneurysm, without rupture Is this a current diagnosis for this admission?: Yes Plan: Incidentally noted measuring 21 mm. No intervention needed. Outpatient follow- up with PCP. (7) PVD (peripheral vascular disease) Is this a current diagnosis for this admission?: Yes Plan: History of right AKA. Has a right femoral graft. Continue home meds. (8) Tobacco dependence due to cigarettes Is this a current diagnosis for this admission?: Yes Plan: Counseled on smoking cessation benefits. Nicotine patch offered. (9) DKA (diabetic ketoacidoses) Qualifiers: Diabetes mellitus type: due to underlying condition Diabetes mellitus complication detail: without coma Qualified Code(s): E08.10 - Diabetes mellitus due to underlying condition with ketoacidosis without coma Is this a current diagnosis for this admission?: Yes Plan: Treated with insulin drip and has resolved Physical Exam Vital Signs: Temp Pulse Resp BP Pulse Ox 98.4 F 86 16 146/73 H 98 01/01/20 07:42 01/01/20 07:42 01/01/20 07:42 01/01/20 07:42 01/01/20 07:42 Intake & Output 12/31/19 01/01/20 01/02/20 06:59 06:59 06:59 Intake Total 2259 1027 Output Total 625 300 Balance 1634 727 Weight 53 kg 52.9 kg General appearance: PRESENT: no acute distress, cooperative Neck exam: ABSENT: JVD Respiratory exam: PRESENT: unlabored. ABSENT: accessory muscle use, retraction, tachypnea Cardiovascular exam: ABSENT: tachycardia Neurological exam: PRESENT: alert, awake, oriented to person, oriented to place, oriented to time, oriented to situation Psychiatric exam: ABSENT: agitated, anxious Results Laboratory Results: WBC 9.6 10^3/uL (4.0-10.5) 01/01/20 05:46 RBC 3.76 10^6/uL (3.72-5.28) 01/01/20 05:46 Hgb 10.8 g/dL (12.0-15.5) L 01/01/20 05:46 Hct 31.8 % (36.0-47.0) L 01/01/20 05:46 MCV 85 fl (80-97) 01/01/20 05:46 MCH 28.6 pg (27.0-33.4) 01/01/20 05:46 MCHC 33.9 g/dL (32.0-36.0) 01/01/20 05:46 RDW 15.0 % (11.5-14.0) H 01/01/20 05:46 Plt Count 267 10^3/uL (150-450) 01/01/20 05:46 Lymph % (Auto) 33.8 % (13-45) 01/01/20 05:46 [place] % (Auto) 5.3 % (3-13) 01/01/20 05:46 Eos % (Auto) 1.3 % (0-6) 01/01/20 05:46 Baso % (Auto) 1.2 % (0-2) 01/01/20 05:46 Absolute Neuts (auto) 5.6 10^3/uL (1.7-8.2) 01/01/20 05:46 Absolute Lymphs (auto) 3.3 10^3/uL (0.5-4.7) 01/01/20 05:46 Absolute Monos (auto) 0.5 10^3/uL (0.1-1.4) 01/01/20 05:46 Absolute Eos (auto) 0.1 10^3/uL (0.0-0.6) 01/01/20 05:46 Absolute Basos (auto) 0.1 10^3/uL (0.0-0.2) 01/01/20 05:46 Total Counted 100 12/29/19 10:45 Seg Neutrophils % 58.4 % (42-78) 01/01/20 05:46 Seg Neuts % (Manual) 91 % (42-78) H 12/29/19 10:45 Band Neutrophils % 1 % (3-5) L 12/29/19 10:45 Lymphocytes % (Manual) 6 % (13-45) L 12/29/19 10:45 Monocytes % (Manual) 2 % (3-13) L 12/29/19 10:45 Eosinophils % (Manual) 0 % (0-6) 12/29/19 10:45 Basophils % (Manual) 0 % (0-2) 12/29/19 10:45 Abs Neuts (Manual) 20.0 10^3/uL (1.7-8.2) H 12/29/19 10:45 Abs Lymphs (Manual) 1.3 10^3/uL (0.5-4.7) 12/29/19 10:45 Abs Monocytes (Manual) 0.4 10^3/uL (0.1-1.4) 12/29/19 10:45 Absolute Eos (Manual) 0.0 10^3/uL (0.0-0.6) 12/29/19 10:45 Abs Basophils (Manual) 0.0 10^3/uL (0.0-0.2) 12/29/19 10:45 Platelet Comment ADEQUATE 12/29/19 10:45 RBC Morph Comment NORMO-CYTIC/CHROMIC 12/29/19 10:45 VBG pH 7.27 (7.30-7.42) L 12/29/19 12:48 VBG pCO2 35.2 mmHg (35-63) 12/29/19 12:48 VBG HCO3 15.6 mmol/L (20-32) L 12/29/19 12:48 VBG Base Excess -10.3 mmol/L 12/29/19 12:48 Sodium 138.5 mmol/L (137-145) 01/01/20 05:46 Potassium 3.4 mmol/L (3.6-5.0) L 01/01/20 05:46 Chloride 106 mmol/L (98-107) 01/01/20 05:46 Carbon Dioxide 25 mmol/L (22-30) 01/01/20 05:46 Anion Gap 8 (5-19) 01/01/20 05:46 BUN 24 mg/dL (7-20) H 01/01/20 05:46 Creatinine 0.97 mg/dL (0.52-1.25) 01/01/20 05:46 Est GFR ( Amer) > 60 (>60) 01/01/20 05:46 Est GFR (MDRD) Non-Af > 60 (>60) 01/01/20 05:46 Glucose 111 mg/dL (75-110) H 01/01/20 05:46 POC Glucose 135 mg/dL (70-110) H 01/01/20 07:42 Hemoglobin A1c % 7.0 % (4.7-6.0) H 12/30/19 04:54 Lactic Acid 1.3 mmol/L (0.7-2.1) 12/29/19 16:43 Calcium 9.3 mg/dL (8.4-10.2) 01/01/20 05:46 Total Bilirubin 0.5 mg/dL (0.2-1.3) 12/29/19 10:45 Direct Bilirubin 0.1 mg/dL (0.0-0.4) 12/29/19 10:45 Neonat Total Bilirubin Not Reportable 12/29/19 10:45 Neonat Direct Bilirubin Not Reportable 12/29/19 10:45 Neonat Indirect Bili Not Reportable 12/29/19 10:45 AST 17 U/L (14-36) 12/29/19 10:45 ALT 10 U/L (<35) 12/29/19 10:45 Alkaline Phosphatase 100 U/L (38-126) 12/29/19 10:45 Total Protein 8.4 g/dL (6.3-8.2) H 12/29/19 10:45 Albumin 4.8 g/dL (3.5-5.0) 12/29/19 10:45 Lipase 17.5 U/L (23-300) L 12/29/19 10:45 Urine Color YELLOW 12/29/19 11:00 Urine Appearance CLOUDY 12/29/19 11:00 Urine pH 6.0 (5.0-9.0) 12/29/19 11:00 Ur Specific [place] 1.018 12/29/19 11:00 Urine Protein >=500 mg/dL (NEGATIVE) H 12/29/19 11:00 Urine Glucose (UA) >=500 mg/dL (NEGATIVE) H 12/29/19 11:00 Urine Ketones 80 mg/dL (NEGATIVE) H 12/29/19 11:00 Urine Blood MODERATE (NEGATIVE) H 12/29/19 11:00 Urine Nitrite NEGATIVE (NEGATIVE) 12/29/19 11:00 Urine Bilirubin NEGATIVE (NEGATIVE) 12/29/19 11:00 Urine Urobilinogen NEGATIVE mg/dL (<2.0) 12/29/19 11:00 Ur Leukocyte Esterase MODERATE (NEGATIVE) H 12/29/19 11:00 Urine WBC (Auto) >182 /HPF 12/29/19 11:00 Urine RBC (Auto) 49 /HPF 12/29/19 11:00 U Hyaline Cast (Auto) 5 /LPF 12/29/19 11:00 Squamous Epi Cells Auto 1 /HPF 12/29/19 11:00 Urine Mucus (Auto) RARE /LPF 12/29/19 11:00 Urine Ascorbic Acid NEGATIVE (NEGATIVE) 12/29/19 11:00 SARS-CoV-2 (PCR) NEGATIVE (NEGATIVE) 12/29/19 16:30 Impressions: Chest X-Ray 12/29/19 00:00 IMPRESSION: No acute cardiopulmonary process. Esophagus X-Ray 12/29/19 00:00 IMPRESSION: 1. LARGE INTRALUMINAL FILLING DEFECT WITHIN THE MID ESOPHAGUS, PRESUMED TO BE A RETAINED FOOD BOLUS, IS PARTIALLY OBSTRUCTING THE ESOPHAGUS ALTHOUGH LIQUID CONTRAST CAN REACH THE STOMACH. 2. MUCOSAL THICKENING OF THE DISTAL ESOPHAGUS AT THE GE JUNCTION. 3. MODERATELY DISTENDED FLUID-FILLED STOMACH, PROBABLY RELATED TO GASTROPARESIS. ENDOSCOPY IS RECOMMENDED FOR FURTHER EVALUATION. Abdomen/Pelvis CT 12/29/19 10:43 IMPRESSION: 1. 21 mm aneurysm of the abdominal aorta at the bifurcation. 2. No contrast is seen in the left femoral graft. 3. There appears to be a slight thickening of the wall of the urinary bladder. Correlate for cystitis. KUB X-Ray 12/31/19 00:00 IMPRESSION: Enteric contrast in the proximal colon. Nonobstructive bowel gas pattern. Plan Time Spent: Less than 30 Minutes Stroke Is this a Stroke Patient?: No Acute Heart Failure - Is this a Heart Failure Patient?: No
[2020-01-01] MEDS: PANTOPRAZOLE SODIUM 40 MG TABLET.DR PO SCH (10:35)
[2020-01-01] MEDS: CEFTRIAXONE 1 GM/D5W RTU 1 GM/50 ML RTUPB IV SCH (10:44)
[2020-01-01] MEDS ORDERED: POTASSIUM CHLORIDE 10 MEQ TABLET.ER PO ONE (11:00)
[2020-01-01 11:09] VITALS: BP 137/68
== END 2020-01-01 11:35 | disposition home or self-care (01) | DRG 393 ==
LOC: ER 09:25 → EH 14:13 → 3W 20:28
PROVIDERS: ADMIT Internal Medicine; ATTEND Internal Medicine
PROC: 0DC28ZZ Extirpation of Matter from Middle Esophagus, Via Natural or Artificial Opening Endoscopic (ICD-10-PCS; principal; 2019-12-29 18:45)
PROC: 0DB78ZX Excision of Stomach, Pylorus, Via Natural or Artificial Opening Endoscopic, Diagnostic (ICD-10-PCS; 2019-12-29 18:45)
DX: T18.128A Food in esophagus causing other injury, initial encounter (principal); E11.10 Type 2 diabetes mellitus with ketoacidosis without coma; K22.10 Ulcer of esophagus without bleeding; N30.01 Acute cystitis with hematuria; K29.80 Duodenitis without bleeding; K29.70 Gastritis, unspecified, without bleeding; K21.9 Gastro-esophageal reflux disease without esophagitis; E11.51 Type 2 diabetes mellitus with diabetic peripheral angiopathy without gangrene; R13.10 Dysphagia, unspecified; E11.43 Type 2 diabetes mellitus with diabetic autonomic (poly)neuropathy; K31.84 Gastroparesis; I71.4 Abdominal aortic aneurysm, without rupture; I10 Essential (primary) hypertension; F41.9 Anxiety disorder, unspecified; I25.10 Atherosclerotic heart disease of native coronary artery without angina pectoris; G43.909 Migraine, unspecified, not intractable, without status migrainosus; T38.3X6A Underdosing of insulin and oral hypoglycemic [antidiabetic] drugs, initial encounter; M19.90 Unspecified osteoarthritis, unspecified site; F17.210 Nicotine dependence, cigarettes, uncomplicated; X58.XXXA Exposure to other specified factors, initial encounter; Z88.6 Allergy status to analgesic agent; I25.2 Old myocardial infarction; Z79.84 Long term (current) use of oral hypoglycemic drugs; Z83.3 Family history of diabetes mellitus; Z79.899 Other long term (current) drug therapy; Z89.611 Acquired absence of right leg above knee; Z91.128 Patient's intentional underdosing of medication regimen for other reason; Z79.4 Long term (current) use of insulin; Z90.49 Acquired absence of other specified parts of digestive tract; Z82.49 Family history of ischemic heart disease and other diseases of the circulatory system; Z79.01 Long term (current) use of anticoagulants; Z03.818 Encounter for observation for suspected exposure to other biological agents ruled out
CPT/HCPCS: 36415; 43239; 43247; 71045; 731; 74018; 74177; 74220; 80048; 80053; 81001; 82803; 82962; 83036; 83605; 83690; 85025; 87040; 87086; 87635; 88305; 88342; 93005; 93010; 96361; 96365; 96375; 99140; 99285; C1758; C9113; C9803; J0171; J0360; J0696; J1815; J2250; J2270; J2405; J2550; J2704; J2765; J3010; J3360; J3480; J3490; J7030; J7042

== ENCOUNTER → 2020-04-29 | Outpatient (CLI) | payer MEDICAID ==
--- NOTE | 2020-04-29 11:58 | RADIOLOGY REPORT (SQ) ---
EXAM DESCRIPTION: FOOT LEFT COMPLETE IMAGES COMPLETED DATE/TIME: 04/29/2020 8:15 am REASON FOR STUDY: NON-PRS CHRONIC ULCER OTH PRT LEFT FOOT W FAT LAYER EXPOSED L97.522 NON-PRS CHRON IC ULCER OTH PRT LEFT FOOT W FAT LAYER E11.621 TYPE 2 DIABETES MELLITUS WITH FOOT ULCER COMPARISON: None. NUMBER OF VIEWS: Three views. TECHNIQUE: AP, lateral and oblique radiographic images acquired of the left foot. LIMITATIONS: None. FINDINGS: MINERALIZATION: Mild osteopenia. BONES: Soft tissue swelling and destruction of bone suggested to involve the proximal and distal int erphalangeal joints of the second toe. Small areas of fragmentation of bones suggested. Considerati ons for these findings include osteomyelitis. Bipartite tibial sesamoid bone overlies the head of the first metatarsal bone, normal anatomic varian t. Small calcaneal spurs. JOINTS: See above discussion. Degenerative changes at the first metatarsophalangeal joint. SOFT TISSUES: Soft tissue swelling second toe. OTHER: No other significant finding. IMPRESSION: 1. The constellation of findings as above suggest osteomyelitis involving the second to e. TECHNICAL DOCUMENTATION: JOB ID: [id number] [employer]- All Rights Reserved Reading location - IP/workstation name: [email or web address]
== END ==
LOC: WC 07:45
PROVIDERS: ATTEND Nurse Practitioner Family
DX: E11.621 Type 2 diabetes mellitus with foot ulcer (principal); L97.522 Non-pressure chronic ulcer of other part of left foot with fat layer exposed

== ENCOUNTER 2020-06-21 20:50 | Emergency (ER) | payer MEDICAID ==
--- NOTE | 2020-06-21 21:28 | ER Document Report ---
ED Medical Screen (RME) - General Stated Complaint: FOOT INFECTION Time Seen by Provider: 06/21/20 21:13 Primary Care Provider: RAUDEL FREEMAN TRAINING GENERALIST, TRAINING GENERALIST [NURSE PRACTITIONER] - Follow up as needed Notes: Presents complaining of left foot pain for the past 3 weeks which worsened yesterday. Patient complains of left foot tenderness from the ankle distally. Patient does report foot is cool and discolored. Patient recently had a left second toe amputation 3 weeks ago. Patient does complain of some nausea. Patient has a history of diabetes, hypertension, previous DVT as well as peripheral artery disease. Patient has had vascular surgery to the left lower extremity and has had a right AKA. I have greeted and performed a rapid initial assessment of this patient. A comprehensive ED assessment and evaluation of the patient, analysis of test results and completion of the medical decision making process will be conducted by additional ED providers. TRAVEL OUTSIDE OF THE [place] IN LAST 30 DAYS: No - couldn't obtain 2/2 pt mental status - Related Data Allergies/Adverse Reactions: aspirin [Aspirin] Allergy (Intermediate, Verified 12/29/19 10:43) Feels hot & itchy meperidine HCl [From Demerol] Allergy (Intermediate, Verified 12/29/19 10:43) Get very hot tramadol [Tramadol] Allergy (Intermediate, Verified 12/29/19 10:43) Feel hot & itchy Past Medical History - Past Medical History Cardiac Medical History: Reports: Hx Coronary Artery Disease, Hx Heart Attack - all per emr, Hx Hypertension Pulmonary Medical History: Neurological Medical History: Reports: Hx Migraine - per emr Endocrine Medical History: Reports: Hx Diabetes Mellitus Type 2 - per emr confirmed BF on insulin usually compliant GI Medical History: Reports: Hx Gastroesophageal Reflux Disease - per emr Musculoskeltal Medical History: Reports Hx Arthritis - per emr "OSTEO" not differientated per me, Reports Hx Musculoskeletal Trauma - per emr Psychiatric Medical History: Reports: Hx Anxiety Denies: Hx Depression Traumatic Medical History: Reports: Hx Fractures - not clarified/reviewed by me, per emr Infectious Medical History: Past Surgical History: Reports: Hx Abdominal Surgery - LAP, Hx Section - X3, Hx Cholecystectomy, Hx Gynecologic Surgery - 1 , Hx Hysterectomy, Hx Oral Surgery, Hx Orthopedic Surgery - R FOOT, Other - couldn't confirm above (+)s per emr 2/2 pt mental status - Immunizations Immunizations up to date: Yes Hx Diphtheria, Pertussis, Tetanus Vaccination: Yes - per emr i didn't confirm Physical Exam - Vital signs Vitals: Temp Pulse Resp BP Pulse Ox 99.7 F 98 18 143/76 H 98 06/21/20 20:57 06/21/20 20:57 06/21/20 20:57 06/21/20 20:57 06/21/20 20:57 - Extremities General lower extremity: Tender - Tenderness to left foot, Other - Left foot cool to the touch. No: Normal color Course - Re-evaluation Re-evalutation: 06/21/20 21:35 Charge nurse advised of patient status and need for room. Room was provided and patient was brought directly to room from triage. - Vital Signs Vital signs: Temp Pulse Resp BP Pulse Ox 98 F 89 16 141/88 H 100 06/22/20 00:47 06/22/20 00:47 06/22/20 00:47 06/22/20 00:47 06/22/20 00:47 - Laboratory Results Result Diagrams: 06/21/20 22:10 06/21/20 22:10 Laboratory Results Interpreted: 06/21/20 06/21/20 06/21/20 22:10 22:10 22:10 WBC 12.1 H Hgb 10.5 L Hct 30.8 L RDW 14.3 H Absolute Neuts (auto) 9.6 H Seg Neutrophils % 79.7 H APTT 37.2 H Creatine Kinase 25 L Doctor's Discharge - Discharge Clinical Impression: Critical limb ischemia with history of revascularization of same extremity Disposition: [facility] Referrals: RAUDEL FREEMAN NP, TRAINING GENERALIST [NURSE PRACTITIONER] - Follow up as needed
[2020-06-21] MEDS ORDERED: HYDROMORPHONE HCL INJ/PF 2 MG/ML AMPULE IV PRN (21:56)
--- NOTE | 2020-06-21 21:56 | ER Document Report ---
ED General - General Stated Complaint: FOOT INFECTION Time Seen by Provider: 06/21/20 21:13 Primary Care Provider: RAUDEL FREEMAN STRAIGHTENER HAND, STRAIGHTENER HAND [NURSE PRACTITIONER] - Follow up as needed TRAVEL OUTSIDE OF THE [place] IN LAST 30 DAYS: No - couldn't obtain 2/2 pt mental status - HPI Notes: 50-year-old female presents with left foot pain. Patient has had left foot pain for the past 3 days. She states that her pain has been progressively increasing. Is not severe to the point that she can no longer walk on it. She also noted that her foot is cold and appears navas in color, again persistent for the past 3 days. Patient has a history of multiple vascular surgeries. She states that Dr. Arevalo recently amputated her left second toe on May 29, this was due to an infection that had gone to the bone. She states that she has not been able to tolerate her antibiotic because she has been experiencing na usea/vomiting due to the pain. She is also unable to tolerate her oral pain medication. Patient is not currently on any anticoagulation. She states that she was discontinued from Eliquis several months ago. 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 She is a current everyday smoker, though notes she is down to 4 cigarettes a day from 2 packs/day. - Related Data Allergies/Adverse Reactions: aspirin [Aspirin] Allergy (Intermediate, Verified 12/29/19 10:43) Feels hot & itchy meperidine HCl [From Demerol] Allergy (Intermediate, Verified 12/29/19 10:43) Get very hot tramadol [Tramadol] Allergy (Intermediate, Verified 12/29/19 10:43) Feel hot & itchy Past Medical History - General Information source: Patient - Social History Smoking Status: Current Every Day Smoker Family History: DM, Hypertension - Past Medical History Cardiac Medical History: Reports: Hx Coronary Artery Disease, Hx Heart Attack - all per emr, Hx Hypertension Pulmonary Medical History: Neurological Medical History: Reports: Hx Migraine - per emr Endocrine Medical History: Reports: Hx Diabetes Mellitus Type 2 - per emr confirmed BF on insulin usually compliant GI Medical History: Reports: Hx Gastroesophageal Reflux Disease - per emr Musculoskeletal Medical History: Reports Hx Arthritis - per emr "OSTEO" not differientated per me, Reports Hx Musculoskeletal Trauma - per emr Psychiatric Medical History: Reports: Hx Anxiety Denies: Hx Depression Traumatic Medical History: Reports: Hx Fractures - not clarified/reviewed by me, per emr Infectious Medical History: Past Surgical History: Reports: Hx Abdominal Surgery - LAP, Hx Section - X3, Hx Cholecystectomy, Hx Gynecologic Surgery - 1 , Hx Hysterectomy, Hx Oral Surgery, Hx Orthopedic Surgery - R FOOT, Other - couldn't confirm above (+)s per emr 2/2 pt mental status - Immunizations Immunizations up to date: Yes Hx Diphtheria, Pertussis, Tetanus Vaccination: Yes - per emr i didn't confirm Review of Systems - Review of Systems Constitutional: denies: Fever EENT: No symptoms reported Cardiovascular: No symptoms reported Respiratory: No symptoms reported Gastrointestinal: No symptoms reported Genitourinary: No symptoms reported Female Genitourinary: No symptoms reported Musculoskeletal: See HPI Skin: See HPI Hematologic/Lymphatic: No symptoms reported Neurological/Psychological: denies: Weakness Physical Exam - Vital signs Vitals: Temp Pulse Resp BP Pulse Ox 99.7 F 98 18 143/76 H 98 06/21/20 20:57 06/21/20 20:57 06/21/20 20:57 06/21/20 20:57 06/21/20 20:57 - General General appearance: Appears well, Alert In distress: None Notes: Appears older than stated age - HEENT Head: Normocephalic, Atraumatic Extraocular movements intact: Yes Pupils: PERRL - Respiratory Breath sounds: Normal - Cardiovascular Rhythm: Regular Heart sounds: Normal auscultation Pulses: Absent: Popliteal - Left, with Doppler, Posterior tibial - Left, with palpation and Doppler, Dorsalis pedis - Left, with palpation and Doppler Decreased capillary refill in seconds: 5 - Left foot - Abdominal Tenderness: Nontender - Extremities Notes: Status post AKA a right leg Status post amputation left second toe. Patient has generalized tender to palpation to left foot and distal leg, decreased range of motion secondary to pain Left calf is soft - Neurological Neuro grossly intact: Yes Cognition: Normal Orientation: AAOx4 - Psychological Associated symptoms: Normal affect - Skin Skin Temperature: Cool - Left foot/distal left lower leg Course - Re-evaluation Re-evalutation: 50-year-old female here with painful foot x3 days, recent toe amputation. On exam the left foot is grayblue in appearance, it is cool to touch, no palpable or dopplerable pulses. Leg compartments are soft. I have a high concern for limb ischemia, she is a known vasculopath. Will attempt to obtain ultrasound of the arteries, however will start heparin bolus/GTT before this is performed. Patient apparently had GI bleeding from Eliquis use, I discussed with her that bleeding is a potential side effect, however the benefits outweighs the risk, she agrees to heparin therapy. Will check labs. Pain control. 06/21/20 22:51 I reviewed the arterial ultrasound and progress, patient has a large fem-pop stent that was placed 5 years ago, really unable to see any flow within it. Her cachil dehe vessels have no flow. There are a few areas where there is high velocity and regurgitation. Likely this is going to be inconclusive and clinically she has ischemia. CTA has been ordered, however will touch base with [facility] before this is done 06/21/20 22:55 [facility] transfer center called, vasc surg to be paged 06/21/20 23:[address] Ivey, will go ED-ED to [facility] and vascular surgery team will see in consult 06/21/20 23:33 Patient and updated on plan for transfer 06/21/20 23:[address] Dougie Solano 06/22/20 00:18 Minimal leukocytosis likely reactionary versus due to her known infection. Electrolytes within normal limits. Creatinine within normal limits. CK is not elevated. 06/22/20 00:34 Rapid Covid neg 06/22/20 00:41 Transport has arrived. CTA was not done prior to their arrival. Patient stable at time of departure from the emergency department. - Vital Signs Vital signs: Temp Pulse Resp BP Pulse Ox 99.0 F 82 16 146/75 H 100 06/22/20 00:06 06/22/20 00:06 06/22/20 00:06 06/22/20 00:06 06/22/20 00:06 - Laboratory Results Result Diagrams: 06/21/20 22:10 06/21/20 22:10 Laboratory Results Interpreted: 06/21/20 06/21/20 06/21/20 22:10 22:10 22:10 WBC 12.1 H Hgb 10.5 L Hct 30.8 L RDW 14.3 H Absolute Neuts (auto) 9.6 H Seg Neutrophils % 79.7 H APTT 37.2 H Creatine Kinase 25 L Critical Laboratory Results Reviewed: No Critical Results - Radiology Results Critical Radiology Results Reviewed: No Critical Results Discharge - Discharge Clinical Impression: Critical limb ischemia with history of revascularization of same extremity Disposition: [facility] Referrals: RAUDEL FREEMAN NP, STRAIGHTENER HAND [NURSE PRACTITIONER] - Follow up as needed
[2020-06-21] MEDS ORDERED: HEPARIN SOD (PORCINE) 1,000 UNIT/ML 10 ML VIAL IV ONE (21:57)
[2020-06-21] MEDS ORDERED: HEPARIN SODIUM,PORCINE/D5W 25,000 UNIT/250 ML RTUINJ IV PRN (21:57)
--- NOTE | 2020-06-21 22:39 | RADIOLOGY REPORT (SQ) ---
Left foot x-ray three views on 06/21/2020 at 9:56 PM CLINICAL INDICATION: Left foot pain, recent amputation COMPARISON: 04/29/2020 FINDINGS: There has been interval amputation of the second toe at the level of the MTP joint. There is diffuse osteopenia. Small plantar calcaneal spur is noted. There are no fractures. No definite plain radiographic evidence of osteomyelitis is noted. IMPRESSION: Interval amputation of the second toe with no acute bony abnormality.
[2020-06-21 22:45] LABS: ABSOLUTE EOSINOPHILS # (AUTO) 0.2 10^3/uL (0.0-0.6); ABSOLUTE LYMPHOCYTES (AUTO) 1.7 10^3/uL (0.5-4.7); ABSOLUTE MONOCYTES (AUTO) 0.5 10^3/uL (0.1-1.4); EOSINOPHILS % (AUTO) 1.4 % (0-6); TOTAL CELLS COUNTED % (AUTO) 100 %
[2020-06-21 22:54] LABS: INTERNATIONAL RATION (INR) 0.98; PARTIAL THROMBOPLASTIN TIME 37.2 SEC (23.5-35.8); PROTHROMBIN TIME 13.2 SEC (11.4-15.4)
[2020-06-21 22:59] LABS: ABSOLUTE NEUT (AUTO) 9.6 10^3/uL (1.7-8.2); ALBUMIN 4.1 g/dL (3.5-5.0); ALKALINE PHOSPHATASE 99 U/L (38-126); ANION GAP 8 (5-19); ASPARTATE AMINO TRANSFERASE 16 U/L (14-36); BASOPHILS % (AUTO) 0.4 % (0-2); BILIRUBIN,DIRECT 0.3 mg/dL (0.0-0.4); BILIRUBIN,TOTAL 0.3 mg/dL (0.2-1.3); BLOOD UREA NITROGEN 13 mg/dL (7-20); CALCIUM 9.6 mg/dL (8.4-10.2); CARBON DIOXIDE 29 mmol/L (22-30); CHLORIDE 103 mmol/L (98-107); CREATINE KINASE 25 U/L (30-135); GLUCOSE 104 mg/dL (75-110); HEMATOCRIT 30.8 % (36.0-47.0); HEMOGLOBIN 10.5 g/dL (12.0-15.5); LYMPHOCYTES % (AUTO) 14.4 % (13-45); MEAN CORPUSCULAR HEMOGLOBIN 27.8 pg (27.0-33.4); MEAN CORPUSCULAR VOLUME 82 fl (80-97); MONOCYTES % (AUTO) 4.1 % (3-13); PLATELET COUNT 443 10^3/uL (150-450); POTASSIUM 4.2 mmol/L (3.6-5.0); RED BLOOD COUNT 3.77 10^6/uL (3.72-5.28); RED CELL DISTRIBUTION WIDTH 14.3 % (11.5-14.0); SEGMENTED NEUTROPHILS % (AUTO) 79.7 % (42-78); TOTAL PROTEIN 7.9 g/dL (6.3-8.2); WHITE BLOOD COUNT 12.1 10^3/uL (4.0-10.5)
[2020-06-21] MEDS ORDERED: HYDROMORPHONE HCL INJ/PF 2 MG/ML AMPULE IV ONE (23:30)
[2020-06-22 00:48] VITALS: BP 141/88
[2020-06-22] MEDS ORDERED: HEPARIN SOD (PORCINE) 1,000 UNIT/ML 10 ML VIAL IV PRN (00:58)
--- NOTE | 2020-06-22 01:55 | RADIOLOGY REPORT (SQ) ---
EXAM DESCRIPTION: US LOWER EXTREMITY ARTERIES LIMITED/UNILATERAL/FOLLOW UP COMPLETED DATE/TME: 06/22/2020 00:03 CLINICAL HISTORY: 50 years Female, LLE pain Comparison: CTA, April 20, 2019 LIMITATIONS: Targeted exam for requested parameters. No YAMEL due to pain and no flow on the left. No YAMEL on the right due to right above knee amputation. FINDINGS: LEFT: No significant arterial flow including the left common femoral artery, left femoral arterial stent, and left superficial femoral artery. Minimal reversed flow seen at the distalmost left femoral/popliteal artery. No arterial flow at the remaining left popliteal artery/stent. No significant arterial flow at the left posterior tibial artery, left anterior tibial artery, and left dorsalis pedis component. Monophasic arterial flow at the left femoral profunda. 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 Immediate Surgical referral advised.
== END 2020-06-22 00:49 | disposition short-term general hospital (02) ==
LOC: ER 20:50
DX: E11.51 Type 2 diabetes mellitus with diabetic peripheral angiopathy without gangrene (principal); R11.0 Nausea; I10 Essential (primary) hypertension; Z79.4 Long term (current) use of insulin; Z89.422 Acquired absence of other left toe(s); Z86.718 Personal history of other venous thrombosis and embolism; Z89.611 Acquired absence of right leg above knee
CPT/HCPCS: 99285; 96375; 96365; 96366; 36415; 82550; 85025; 85610; 85730; 0241U ×4; 80053; 93926; 73630; J1644 ×2; J1170; C9803